=== PATIENT | female | born 1930 | race Caucasian/White ===

== ENCOUNTER → 2017-04-20 | Outpatient (CLI) | payer MEDICARE ==
--- NOTE | 2017-04-21 15:19 | KCIC ---
Examination: MRI of the right distal forearm and wrist HISTORY: History of contraction of the fourth and fifth fingers since April COMPARISON: None available TECHNIQUE: Multiplanar, multisequence MR imaging of the distal forearm and wrist were performed without contrast. FINDINGS: Examination is significantly limited due to motion artifact. There is mild focal thickened appearance of the extensor carpi ulnaris tendon at the level of the proximal carpal row with small amount of fluid within the tendon sheath at the level of the wrist and extending proximally at the level of the distal forearm. There is fluid identified in the tendon sheath of the extensor digitorum at the level of the distal forearm. There is focal thickened appearance of the medial tendons of the within the extensor digitorum with increased signal. There is some wavy appearance of the medial tendons within the extensor digitorum compartment at the level of the distal carpal row and discontinuation of the medial tendons within the extensor digitorum from the level of the distal forearm to the level of the distal carpal row. The partially visualized first, second extensor compartment tendons grossly appear unremarkable. The flexor tendons grossly appears unremarkable. There is moderate amount of fluid identified in the distal radioulnar joint with the attenuation of the triangular fibrocartilage complex. There is severe joint space loss identified in the distal radioulnar joint, radiocarpal joints. There are multiple cystic changes identified in the medial scaphoid and lateral aspect of the lunate. Moderate degenerative changes identified in the carpometacarpal joints. Small amount of fluid identified in the mid carpal joints. There is increased signal identified in the scapholunate ligament probably degeneration. There is mild volar tilting of the lunate in relation to the capitate. Mild trabecular edema identified in the lunate bone. There is complete cartilage loss identified in the wrists joint and in the radiocarpal and ulnocarpal joints. There is abutment of the ulna with the lunate with trabecular edema identified in the lunate and the distal ulna. The ulnar nerve within Guyon's canal and the median nerve within the carpal tunnel grossly appears unremarkable. IMPRESSION: 1. Tenosynovitis of the extensor digitorum tendons with wavy appearance and discontinuation of the medial tendons within the extensor digitorum from the level of the distal forearm to the level of the distal carpal row likely complete tear with retraction of the medial tendons within the extensor digitorum. The portion of the medial tendons within the extensor digitorum compartment demonstrate tendinosis at the level of the base of the metacarpals. Exam is limited due to motion artifact. The extensor digiti minimi tendon is not clearly identified. Consider MRI of the hand for better evaluation. 2. Tenosynovitis of the extensor carpi ulnaris. 3. Moderate amount of fluid identified in the distal radioulnar joint with attenuated appearance of the triangular fibrocartilage complex likely tear of the radial attachment of the triangular fibrocartilage. 4. Severe degenerative changes carpal joints and radiocarpal and ulnocarpal joints. 5. There is abutment of the ulna with the lunate with trabecular edema identified in the lunate and the distal ulna. Electronically signed by: Sudhir Ochoa MD (04/21/2017 3:16 PM) [facility]
== END | disposition home or self-care (01) ==
LOC: KCIC MRI 08:28
PROVIDERS: ATTEND Emergency Medicine
DX: R53.1 Weakness (principal); M65.9 Synovitis and tenosynovitis, unspecified
CPT/HCPCS: 73218; 73221

== ENCOUNTER 2019-01-07 11:52 | Emergency (ER) | payer MEDICARE ==
[~2019-01-07] VITALS: Ht 160 cm; Wt 56.7 kg
[~2019-01-07 11:52] MED LIST: AMLO1CAP10 PO; CEFU250T59 PO; LACT1CAP19 PO; MELO7.5T29 PO; METO50TA6 PO; MIRA50TA PO; Pantoprazole PO
[2019-01-07] MEDS ORDERED: DIPHTH,PERTUSS(ACELL),TET TOX 0.5 ML DISP.SYRIN. VAX IM ONE (12:30)
[2019-01-07] MEDS ORDERED: LIDOCAINE 1% Multi-Dose 20 ML VIAL. INJ ONE (12:30)
--- NOTE | 2019-01-07 12:34 | PHYS DOC ---
Past Medical History Past Medical History: Arthritis, GERD, High Cholesterol, Hypertension, Other Additional Past Medical Histor: urinary incontinence Past Surgical History: Hysterectomy Alcohol Use: None Drug Use: None Adult General Chief Complaint Chief Complaint: MECHANICAL FALL HPI HPI Patient is a 88 year old female who presents with left wrist and right knee pain and laceration. Walking out of a fast food restaurant when she struggled with the door and it knocked her to the ground. There was no head injury, no syncope, no loss of consciousness, no neck pain, no nausea or vomiting. No significant pain, rates it as 0-1 out of 10. Patient is able to ambulate. Patient was brought in by EMS with dressings applied. Patient is uncertain as to when her last tetanus vaccine was administered.[] Review of Systems Review of Systems Constitutional: Denies fever or chills [] Eyes: Denies change in visual acuity, redness, or eye pain [] HENT: Denies nasal congestion or sore throat [] Respiratory: Denies cough or shortness of breath [] Cardiovascular: No chest pain or palpitations[] GI: Denies abdominal pain, nausea, vomiting, bloody stools or diarrhea [] : Denies dysuria or hematuria [] Musculoskeletal: Denies back pain or joint pain, see history of present illness [] Integument: Denies rash or skin lesions [] Neurologic: Denies headache, focal weakness or sensory changes [] Endocrine: Denies polyuria or polydipsia [] All other systems were reviewed and found to be within normal limits, except as documented in this note. Current Medications Current Medications Current Medications Medications (Trade) Dose Ordered Sig/Martin Start Time Stop Time Status Last Admin Dose Admin Diphtheria/ Tetanus/Acell Pertussis (Boostrix) 0.5 ml ONCE ONCE 01/07/19 12:30 01/07/19 12:31 DC 01/07/19 12:30 0.5 ML Lidocaine HCl (Lidocaine 1% 20ml Vial) 20 ml 1X ONCE 01/07/19 12:30 01/07/19 12:31 DC 01/07/19 13:04 20 ML Allergies Allergies Allergies Coded Allergies Type Severity Reaction Last Updated Verified Yeast Allergy Intermediate 09/21/18 Yes Uncoded Allergies Type Severity Reaction Last Updated Verified UNKNOWN ARTHRITIS PILL Allergy Unknown 01/07/19 Physical Exam Physical Exam Constitutional: Well developed, well nourished, no acute distress, non-toxic appearance. [] HENT: Normocephalic, atraumatic, bilateral external ears normal, oropharynx moist, no oral exudates, nose normal. [] Eyes: PERRLA, EOMI, conjunctiva normal, no discharge. [] Neck: Normal range of motion, no tenderness, supple, no stridor. [] Cardiovascular:Heart rate regular rhythm, no murmur [] Lungs & Thorax: Bilateral breath sounds clear to auscultation [] Abdomen: Bowel sounds normal, soft, no tenderness, no masses, no pulsatile masses. [] Skin: Warm, dry, no erythema, no rash. [] Back: No tenderness, no CVA tenderness. [] Extremities: Left wrist has a laceration over the ulnar aspect. There is no foreign body. Bleeding is controlled with EMS stressing. Patient is distal neurovascularly intact. No pain with axial loading. No foreign body identified. Patient's right knee shows a laceration superior to the patella. No knee exposure. No foreign body identified. No pain with axial loading. The other extremities show no tenderness, no cyanosis, no clubbing, ROM intact, no edema. [] Neurologic: Alert and oriented X 3, normal motor function, normal sensory function, no focal deficits noted. [] Psychologic: Affect normal, judgement normal, mood normal. [] Current Patient Data Vital Signs Vital Signs Date Time Temp Pulse Resp B/P (MAP) Pulse Ox O2 Delivery O2 Flow Rate FiO2 01/07/19 12:41 80 19 95 01/07/19 11:52 98.0 165/72 (103) Room Air 98.0 EKG EKG [] Radiology/Procedures Radiology/Procedures [] Course & Med Decision Making Course & Med Decision Making Pertinent Labs and Imaging studies reviewed. (See chart for details) ED course: Patient arrived, was placed in bed, in tolerated exam well. EMS placed the c-collar and the patient. After evaluation of her head and neck with no tenderness, normal sensorium, and an otherwise normal head and neck exam, the c-collar was discontinued after patient demonstrated full active range of motion without any discomfort. Patient received tetanus vaccination. Patient had her wounds repaired without any complications. See laceration section. Patient was discharged in improved condition. Medical decision making: There does not appear to be intracranial mass or bleed. No evidence of cervical spine fracture given that there is no tenderness. No evidence of neuro or vascular compromise. No evidence of intractable bleeding. No evidence of retained foreign body. No evidence of an open fracture.[] Dragon Disclaimer Dragon Disclaimer This electronic medical record was generated, in whole or in part, using a voice recognition dictation system. Departure Departure Impression: Primary Impression: Laceration of right knee Additional Impression: Laceration of left wrist Disposition: 01 HOME, SELF-CARE Condition: IMPROVED Referrals: NO PCP (PCP) Patient Instructions: Sterile Tape Wound Closure, Sutured Wound Care Additional Instructions: Follow-up with your regular doctor in 2 days for a wound check. As the Steri- Strips start curling back trim the edges but allow them to fall off on their own. Do not remove them early. Sutures out from the left knee in 10-14 days. Return to the ER if worsening pain, purulent drainage, or any other concerns. Scripts Tramadol Hcl (TRAMADOL HCL) 50 Mg Tablet 50 MG PO Q6HRS PRN for PAIN, #20 TAB Prov: EVERETTE KEE DO 01/07/19 Laceration Repair Lac Repair Indication: Right knee laceration and left wrist laceration [] Procedure: The patient was placed in the appropriate position and anesthesia around the knee laceration was provided with 1% lidocaine, 5 mL of 1% without epinephrine. The area was then irrigated with a Betadine and saline solution.. The laceration was closed with 3, horizontal mattress sutures utilizing 3-0 nylon. The left wrist laceration was repaired utilizing Steri-Strips. After further evaluation it was found to be more of a skin tear The wound area was then dressed with [WOUND COVERING]. Total repaired wound length: 7 cm for the right knee, 3 cm for left wrist. Other Items: None The patient tolerated the procedure well. Hemostasis was achieved. Complications: None. Problem Qualifiers Primary Impression: Laceration of right knee Encounter type: initial encounter Qualified Codes: S81.011A - Laceration without foreign body, right knee, initial encounter Additional Impression: Laceration of left wrist Encounter type: initial encounter Qualified Codes: S61.512A - Laceration without foreign body of left wrist, initial encounter EVERETTE KEE DO Jan 07, 2019 12:34
[2019-01-07 12:41] VITALS: BP 143/64
[2019-01-07] MEDS ORDERED: TRAM50TA PO (13:24)
== END 2019-01-07 13:48 | disposition home or self-care (01) ==
LOC: ER 11:52
DX: S61.512A Laceration without foreign body of left wrist, initial encounter (principal); S81.011A Laceration without foreign body, right knee, initial encounter; K21.9 Gastro-esophageal reflux disease without esophagitis; E78.00 Pure hypercholesterolemia, unspecified; I10 Essential (primary) hypertension; Z88.8 Allergy status to other drugs, medicaments and biological substances; X58.XXXA Exposure to other specified factors, initial encounter; Y93.01 Activity, walking, marching and hiking; Y92.511 Restaurant or cafe as the place of occurrence of the external cause; Y99.8 Other external cause status
CPT/HCPCS: 12004; 90471; 90715; 99284-25

== ENCOUNTER 2019-01-19 13:49 | Inpatient (IN) | payer MEDICARE ==
[~2019-01-19] VITALS: Ht 160 cm; Wt 58.3 kg
[~2019-01-19 13:49] MED LIST changes: +TRAM50TA PO
--- NOTE | 2019-01-19 14:28 | PHYS DOC ---
Past Medical History Past Medical History: Arthritis, GERD, High Cholesterol, Hypertension, Other Additional Past Medical Histor: urinary incontinence Past Surgical History: Hysterectomy Additional Past Surgical Histo: L foot surgery Alcohol Use: None Drug Use: None Adult General Chief Complaint Chief Complaint: SYNCOPE HPI HPI Patient is a 88 year old female who brought in by EMS because of syncope. Patient states she had urinary frequency and dysuria and was seen at urgent care but was not able to give a urine sample and went to the pharmacy to get her routine medication added weakness syncopal episode by his standard without fall or seizure activity that last for a short time. Patient denies chest pain, focal neuro deficit, shortness of breath, nausea and vomiting, headache, weakness before or after syncopal episode. Patient states she had syncopal episodes long time ago but denies recent syncope. Patient was seen in this emergency room one week ago because of a fall and injury to left hand. Review of Systems Review of Systems Constitutional: Denies fever or chills [] Eyes: Denies change in visual acuity, redness, or eye pain [] HENT: Denies nasal congestion or sore throat [] Respiratory: Denies cough or shortness of breath [] Cardiovascular: No additional information not addressed in HPI [] GI: Denies abdominal pain, nausea, vomiting, bloody stools or diarrhea [] : Reports dysuria Musculoskeletal: Denies back pain or joint pain [] Integument: Denies rash or skin lesions [] Neurologic: Denies headache, focal weakness or sensory changes [] Endocrine: Denies polyuria or polydipsia [] All other systems were reviewed and found to be within normal limits, except as documented in this note. Current Medications Current Medications Current Medications Medications (Trade) Dose Ordered Sig/Martin Start Time Stop Time Status Last Admin Dose Admin Ceftriaxone Sodium (Rocephin) 1 gm 1X ONCE 01/19/19 16:15 01/19/19 16:16 DC 01/19/19 16:27 1 GM Sodium Chloride 1,000 ml @ 125 mls/hr Q8H 01/19/19 16:29 01/20/19 16:28 UNV Allergies Allergies Allergies Coded Allergies Type Severity Reaction Last Updated Verified Yeast Allergy Intermediate 09/21/18 Yes Uncoded Allergies Type Severity Reaction Last Updated Verified UNKNOWN ARTHRITIS PILL Allergy Unknown 01/07/19 Physical Exam Physical Exam Constitutional: Well developed, well nourished, no acute distress, non-toxic appearance. [] HENT: Normocephalic, atraumatic, oropharynx moist, no oral exudates, nose normal. [] Eyes: PERRLA, EOMI, conjunctiva normal, no discharge. [] Neck: Normal range of motion, no tenderness, supple, no stridor. [] Cardiovascular:Heart rate regular rhythm, no murmur [] Lungs & Thorax: Bilateral breath sounds clear to auscultation [] Abdomen: Bowel sounds normal, soft, no tenderness, no masses, no pulsatile masses. [] Skin: Warm, dry, no erythema, no rash. [] Back: No tenderness, no CVA tenderness. [] Extremities: No tenderness, no cyanosis, no clubbing, ROM intact, no edema. [] Neurologic: Alert and oriented X 3, normal motor function, normal sensory function, no focal deficits noted. [] Psychologic: Affect normal, judgement normal, mood normal. [] Current Patient Data Vital Signs Vital Signs Date Time Temp Pulse Resp B/P (MAP) Pulse Ox O2 Delivery O2 Flow Rate FiO2 01/19/19 15:30 76 16 138/62 (87) 96 Room Air 01/19/19 13:53 97.7 97.7 Lab Values Laboratory Tests Test 01/19/19 14:05 01/19/19 15:30 White Blood Count 6.7 x10^3/uL (4.0-11.0) Red Blood Count 3.42 x10^6/uL (3.50-5.40) L Hemoglobin 11.3 g/dL (12.0-15.5) L Hematocrit 33.9 % (36.0-47.0) L Mean Corpuscular Volume 99 fL (79-100) Mean Corpuscular Hemoglobin 33 pg (25-35) Mean Corpuscular Hemoglobin Concent 34 g/dL (31-37) Red Cell Distribution Width 11.9 % (11.5-14.5) Platelet Count 236 x10^3/uL (140-400) Neutrophils (%) (Auto) 57 % (31-73) Lymphocytes (%) (Auto) 29 % (24-48) Monocytes (%) (Auto) 11 % (0-9) H Eosinophils (%) (Auto) 2 % (0-3) Basophils (%) (Auto) 1 % (0-3) Neutrophils # (Auto) 3.8 x10^3uL (1.8-7.7) Lymphocytes # (Auto) 1.9 x10^3/uL (1.0-4.8) Monocytes # (Auto) 0.7 x10^3/uL (0.0-1.1) Eosinophils # (Auto) 0.1 x10^3/uL (0.0-0.7) Basophils # (Auto) 0.1 x10^3/uL (0.0-0.2) Sodium Level 138 mmol/L (136-145) Potassium Level 4.1 mmol/L (3.5-5.1) Chloride Level 102 mmol/L (98-107) Carbon Dioxide Level 24 mmol/L (21-32) Anion Gap 12 (6-14) Blood Urea Nitrogen 26 mg/dL (7-20) H Creatinine 1.1 mg/dL (0.6-1.0) H Estimated GFR (Cockcroft-Gault) 46.8 BUN/Creatinine Ratio 24 (6-20) H Glucose Level 112 mg/dL (70-99) H Calcium Level 8.9 mg/dL (8.5-10.1) Magnesium Level 2.1 mg/dL (1.8-2.4) Total Bilirubin 0.6 mg/dL (0.2-1.0) Aspartate Amino Transferase (AST) 19 U/L (15-37) Alanine Aminotransferase (ALT) 18 U/L (14-59) Alkaline Phosphatase 136 U/L (46-116) H Troponin I Quantitative < 0.017 ng/mL (0.000-0.055) LN-Bbi-X-Type Natriuretic Peptide 795 pg/mL (0-449) H Total Protein 7.4 g/dL (6.4-8.2) Albumin 3.7 g/dL (3.4-5.0) Albumin/Globulin Ratio 1.0 (1.0-1.7) Urine Collection Type Unknown Urine Color Yellow Urine Clarity Turbid Urine pH 6.0 Urine Specific Monitor 1.015 Urine Protein 100 mg/dL (NEG-TRACE) Urine Glucose (UA) Negative mg/dL (NEG) Urine Ketones (Stick) Trace mg/dL (NEG) Urine Blood Large (NEG) Urine Nitrite Positive (NEG) Urine Bilirubin Negative (NEG) Urine Urobilinogen Dipstick 0.2 mg/dL (0.2 mg/dL) Urine Leukocyte Esterase Large (NEG) Urine RBC /HPF (0-2) Urine WBC Tntc /HPF (0-4) Urine Bacteria Many /HPF (0-FEW) Laboratory Tests 01/19/19 14:05 Laboratory Tests 01/19/19 14:05 EKG EKG EKG interpreted by me. EKG at 1352 showed normal sinus rhythm at rate of 78, normal GA and QT intervals, low voltage QRS, no acute ST and T-wave abnormalities. Radiology/Procedures Radiology/Procedures [facility] [address] [place], [place] [id number] IMAGING REPORT Signed PATIENT: GILSON CUEVA V ACCOUNT: [id number] : 1930 LOCATION: ER AGE: 88 SEX: F EXAM STATUS: REG ER ORD. PHYSICIAN: FAHAD CEBALLOS MD REASON: syncope PROCEDURE: CT HEAD WO CONTRAST PQRS Compliance Statement: One or more of the following individualized dose reduction techniques were utilized for this examination: 1. Automated exposure control 2. Adjustment of the mA and/or kV according to patient size 3. Use of iterative reconstruction technique CT head without contrast 01/19/2019 2:29 PM INDICATION: Syncope COMPARISON: None available TECHNIQUE: Multiple axial CT images of the head were obtained from skull base through the vertex without intravenous contrast. FINDINGS: Head: Ventricles, sulci and basal cisterns are prominent compatible with mild generalized cerebral and cerebellar volume loss. . Low-attenuation in the periventricular white matter is suggestive of chronic small vessel ischemic changes. There is no hydrocephalus. Correa-white matter differentiation is normal. There is no acute intracranial hemorrhage. There is no mass, mass effect or midline shift. Visualized portions of the orbits are normal the exception of bilateral lens replacement. Moderate opacification of left maxillary sinus with high attenuation material suggestive of inspissated mucus or fungal colonization. Mild mucosal thickening in the right maxillary sinus. Mastoid air cells are well aerated. Scalp and calvaria are normal. IMPRESSION: No acute intracranial hemorrhage. Mild generalized cerebral and cerebellar volume loss. Low-attenuation in the periventricular white matter is suggestive of chronic small vessel ischemic changes. There is moderate opacification left maxillary sinus containing high attenuation material which may be seen with fungal colonization or inspissated mucus. Electronically signed by: Emily Hernandez MD (01/19/2019 3:41 PM) [id number] DICTATED and SIGNED BY: EMILY HERNANDEZ MD DATE: 01/19/19 1541 Course & Med Decision Making Course & Med Decision Making Pertinent Labs and Imaging studies reviewed. (See chart for details) Evaluation of patient in ER showed 88-year-old female patient brought in by EMS because of syncopal episode. Patient had unremarkable physical exam. Labs showed chronic renal insufficiency and anemia with severe UTI without leukocytosis, hypertension, fever or tachycardia. Patient requiring admission for further evaluation and treatment. Discussed with Dr. Lieberman who is in agreement with admission. Discussed findings and plan with patient and family, who acknowledge understanding and agreement. Dragon Disclaimer Dragon Disclaimer This electronic medical record was generated, in whole or in part, using a voice recognition dictation system. Departure Departure Impression: Primary Impression: Syncope Additional Impressions: UTI (urinary tract infection) Chronic renal insufficiency Anemia Disposition: 09 ADMITTED INPATIENT (at 1628) Admitting Physician: Other (Dr Lieberman accepted the admission at 1627) Condition: IMPROVED Referrals: UNKNOWN PCP NAME (PCP) Problem Qualifiers FAHAD CEBALLOS MD Jan 19, 2019 14:28
[2019-01-19 14:33] LABS: BASO # 0.1 x10^3/uL (0.0-0.2); BASO % 1 % (0-3); EOS # 0.1 x10^3/uL (0.0-0.7); EOS % 2 % (0-3); HEMATOCRIT 33.9 % (36.0-47.0); HEMOGLOBIN 11.3 g/dL (12.0-15.5); LYMPH # 1.9 x10^3/uL (1.0-4.8); LYMPH % 29 % (24-48); MEAN CORPUSCULAR HEMOGLOBIN 33 pg (25-35); MEAN CORPUSCULAR HGB CONC 34 g/dL (31-37); MEAN CORPUSCULAR VOLUME 99 fL (79-100); MONO # 0.7 x10^3/uL (0.0-1.1); MONO % 11 % (0-9); NEUT # 3.8 x10^3uL (1.8-7.7); NEUT % 57 % (31-73); PLATELET COUNT 236 x10^3/uL (140-400); RED BLOOD COUNT 3.42 x10^6/uL (3.50-5.40); RED CELL DISTRIBUTION WIDTH 11.9 % (11.5-14.5); WHITE BLOOD COUNT 6.7 x10^3/uL (4.0-11.0)
[2019-01-19 14:42] LABS: CALCIUM 8.9 mg/dL (8.5-10.1); CREATININE 1.1 mg/dL (0.6-1.0); GFR 46.8; POTASSIUM 4.1 mmol/L (3.5-5.1)
[2019-01-19 14:48] LABS: ALBUMIN 3.7 g/dL (3.4-5.0); MAGNESIUM 2.1 mg/dL (1.8-2.4); TOTAL BILIRUBIN 0.6 mg/dL (0.2-1.0); TOTAL PROTEIN 7.4 g/dL (6.4-8.2)
--- NOTE | 2019-01-19 15:26 | EKG ---
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
--- NOTE | 2019-01-19 15:44 | RAD ---
PQRS Compliance Statement: One or more of the following individualized dose reduction techniques were utilized for this examination: 1. Automated exposure control 2. Adjustment of the mA and/or kV according to patient size 3. Use of iterative reconstruction technique CT head without contrast 01/19/2019 2:29 PM INDICATION: Syncope COMPARISON: None available TECHNIQUE: Multiple axial CT images of the head were obtained from skull base through the vertex without intravenous contrast. FINDINGS: Head: Ventricles, sulci and basal cisterns are prominent compatible with mild generalized cerebral and cerebellar volume loss. . Low-attenuation in the periventricular white matter is suggestive of chronic small vessel ischemic changes. There is no hydrocephalus. Correa-white matter differentiation is normal. There is no acute intracranial hemorrhage. There is no mass, mass effect or midline shift. Visualized portions of the orbits are normal the exception of bilateral lens replacement. Moderate opacification of left maxillary sinus with high attenuation material suggestive of inspissated mucus or fungal colonization. Mild mucosal thickening in the right maxillary sinus. Mastoid air cells are well aerated. Scalp and calvaria are normal. IMPRESSION: No acute intracranial hemorrhage. Mild generalized cerebral and cerebellar volume loss. Low-attenuation in the periventricular white matter is suggestive of chronic small vessel ischemic changes. There is moderate opacification left maxillary sinus containing high attenuation material which may be seen with fungal colonization or inspissated mucus. Electronically signed by: Pennie Evans MD (01/19/2019 3:41 PM) [id number]
[2019-01-19 15:47] LABS: BILIRUBIN,URINE NEGATIVE (NEG); CLARITY,URINE TURBID; COLOR,URINE YELLOW; NITRITE,URINE POSITIVE (NEG); PROTEIN,URINE 100 mg/dL (NEG-TRACE); UROBILINOGEN,URINE 0.2 mg/dL (0.2 mg/dL)
[2019-01-19 15:53] LABS: BACTERIA,URINE MANY /HPF (0-FEW); WBC,URINE TNTC /HPF (0-4)
[2019-01-19] MEDS ORDERED: cefTRIAXone IV Push 1 GM VIAL. IVP ONE (16:15)
[2019-01-19] MEDS ORDERED: guaiFENesin ORAL 200 MG/10 ML LIQUID. PO PRN (17:00)
[2019-01-19] MEDS ORDERED: ZOLPIDEM 5 MG TABLET. PO PRN (17:00)
[2019-01-19] MEDS ORDERED: ONDANSETRON PF 4 MG/2 ML VIAL. IV PRN (17:00)
[2019-01-19] MEDS ORDERED: ACETAMINOPHEN 325 MG TABLET. PO PRN (17:00)
[2019-01-19] MEDS ORDERED: ALBUTEROL SULFATE 2.5 MG/3 ML NEBU. NEB PRN (17:00)
[2019-01-19] MEDS ORDERED: DOCUSATE SODIUM 100 MG CAPSULE. PO PRN (17:00)
[2019-01-19] MEDS ORDERED: diphenhydrAMINE 50 MG/ML VIAL IVP PRN (17:00)
--- NOTE | 2019-01-19 17:47 | PDOC1 ---
History and Physical Date of Admission Date of Admission 01/19/2019 Identification/Chief Complaint Chief Complaint I fell at [facility] Source Source: Chart review, Patient History of Present Illness History of Present Illness Patient is an 88-year-old female with past medical history of hypertension who was at [facility] picking up prescriptions for somebody else when she gets "tired of standing". She does not remember falling to the ground and she apparently had a syncopal episode she woke up quite quickly there was no seizure-like activity reported. The patient denies having had urinary or bowel incontinence she did not injure her tone either. Patient refers that it's a first time episode. She was seen by her primary care physician approximately one week ago. She did not have changes to her medications. She denies recent infections no cold-like symptoms no headaches no blurred vision no dysphagia no slurred speech no chest pain palpitations no shortness of breath no paroxysmal nocturnal dyspnea no abdominal pain no nausea vomiting or diarrhea. The patient refers having good appetite and has stayed well hydrated Workup is benign in the emergency department we have been asked to admit for the syncopal episode and because she was found to have a urinary tract infection which is asymptomatic. The patient denies dysuria she denies costovertebral angle tenderness and there is no evidence of toxicity on her clinical examination. Patient is hoping to be discharged home soon. She is very independent of the activities of daily living and she still drives at 88 years old. Past Medical History Cardiovascular: HTN Pulmonary: No pertinent hx Past Surgical History Past Surgical History: No pertinent history Family History Family History: No Significant Social History ALCOHOL: none Drugs: None Current Problem List Problem List Problems Medical Problems: (1) Anemia Status: Acute (2) Chronic renal insufficiency Status: Acute (3) Syncope Status: Acute Current Medications Current Medications Current Medications Medications (Trade) Dose Ordered Sig/Martin Start Time Stop Time Status Last Admin Dose Admin Acetaminophen (Tylenol) 650 mg PRN Q4HRS PRN 01/19/19 17:00 Albuterol Sulfate (Ventolin Neb Soln) 2.5 mg PRN Q4HRS PRN 01/19/19 17:00 Albuterol/ Ipratropium (Duoneb) 3 ml Q4HRS 01/19/19 20:00 Ceftriaxone Sodium (Rocephin) 1 gm 1X ONCE 01/19/19 16:15 01/19/19 16:16 DC 01/19/19 16:27 1 GM Diphenhydramine HCl (Benadryl) 25 mg PRN Q4HRS PRN 01/19/19 17:00 Docusate Sodium (Colace) 100 mg PRN BID PRN 01/19/19 17:00 Guaifenesin (Robitussin) 200 mg PRN Q4HRS PRN 01/19/19 17:00 Lactobacillus Rhamnosus (Culturelle) 1 cap BID 01/19/19 21:00 Lorazepam (Ativan) 2 mg PRN Q4HRS PRN 01/19/19 17:00 Metoprolol Tartrate (Lopressor) 50 mg DAILY08 01/20/19 08:00 UNV Non-Formulary Medication (Amlodipine Besylate/ Benazepril (Amlodipine-Benazepril 5-20 Mg)) 1 cap DAILY 01/20/19 09:00 UNV Non-Formulary Medication (Mirabegron (Myrbetriq)) 50 mg DAILY08 01/20/19 08:00 UNV Non-Formulary Medication ([Pantoprazole] ) 40 mg DAILYAC 01/20/19 07:30 UNV Ondansetron HCl (Zofran) 4 mg PRN Q4HRS PRN 01/19/19 17:00 Sodium Chloride 1,000 ml @ 125 mls/hr Q8H 01/19/19 16:29 01/20/19 16:28 Tramadol HCl (Ultram) 50 mg PRN Q6HRS PRN 01/19/19 17:00 Zolpidem Tartrate (Ambien) 5 mg PRN QHS PRN 01/19/19 17:00 Allergies Allergies Allergies Coded Allergies Type Severity Reaction Last Updated Verified Yeast Allergy Intermediate 09/21/18 Yes Uncoded Allergies Type Severity Reaction Last Updated Verified UNKNOWN ARTHRITIS PILL Allergy Unknown 01/07/19 ROS Review of System CONSTITUTIONAL: No fever or chills EYES: No recent changes SKIN: No rash or itching CARDIOVASCULAR: No chest pain, syncope, palpitations, or edema RESPIRATORY: No SOB or cough GASTROINTESTINAL: No nausea, vomiting or abdominal pain NEUROLOGICAL: No headaches or weakness ENDOCRINE: No cold or heat intolerance GENITOURINARY: No urgency or frequency of urination MUSCULOSKELETAL: No back pain or joint pain LYMPHATICS: No enlarged lymph nodes PSYCHIATRIC: No anxiety or depression Physical Exam Physical Exam Gen.: Elderly thin looking in no apparent distress Head: Normal shape atraumatic Eyes: Pupils equal reactive to light and accommodation, normal conjunctivae and lids Ears: Normal shape Nose: Normal shape no trauma Mouth: No exudates of the back of throat no thrush no lesions Neck: Supple no JVD no carotid bruit or lymphadenopathy no thyromegaly Chest: Lungs clear to auscultation with good inspiratory effort no crackles rales or rhonchi Cardiovascular: S1-S2 regular rhythm no murmurs gallops or rubs Abdomen: Bowel sounds present soft nontender no hepatosplenomegaly appreciated sign Extremities: No clubbing no cyanosis no edema peripheral pulses palpated bilaterally Neurological: Alert awake oriented in person time place and situation, cranial nerves II through XII intact, no motor or sensory deficits appreciated Psych: Appropriate mood, cooperative Vitals Vitals Vital Signs Date Time Temp Pulse Resp B/P (MAP) Pulse Ox O2 Delivery O2 Flow Rate FiO2 01/19/19 16:30 88 17 155/69 (97) 97 Room Air 01/19/19 13:53 97.7 97.7 Labs Labs Laboratory Tests Test 01/19/19 14:05 01/19/19 15:30 White Blood Count 6.7 x10^3/uL (4.0-11.0) Red Blood Count 3.42 x10^6/uL (3.50-5.40) Hemoglobin 11.3 g/dL (12.0-15.5) Hematocrit 33.9 % (36.0-47.0) Mean Corpuscular Volume 99 fL (79-100) Mean Corpuscular Hemoglobin 33 pg (25-35) Mean Corpuscular Hemoglobin Concent 34 g/dL (31-37) Red Cell Distribution Width 11.9 % (11.5-14.5) Platelet Count 236 x10^3/uL (140-400) Neutrophils (%) (Auto) 57 % (31-73) Lymphocytes (%) (Auto) 29 % (24-48) Monocytes (%) (Auto) 11 % (0-9) Eosinophils (%) (Auto) 2 % (0-3) Basophils (%) (Auto) 1 % (0-3) Neutrophils # (Auto) 3.8 x10^3uL (1.8-7.7) Lymphocytes # (Auto) 1.9 x10^3/uL (1.0-4.8) Monocytes # (Auto) 0.7 x10^3/uL (0.0-1.1) Eosinophils # (Auto) 0.1 x10^3/uL (0.0-0.7) Basophils # (Auto) 0.1 x10^3/uL (0.0-0.2) Sodium Level 138 mmol/L (136-145) Potassium Level 4.1 mmol/L (3.5-5.1) Chloride Level 102 mmol/L (98-107) Carbon Dioxide Level 24 mmol/L (21-32) Anion Gap 12 (6-14) Blood Urea Nitrogen 26 mg/dL (7-20) Creatinine 1.1 mg/dL (0.6-1.0) Estimated GFR (Cockcroft-Gault) 46.8 BUN/Creatinine Ratio 24 (6-20) Glucose Level 112 mg/dL (70-99) Lactic Acid Level 1.7 mmol/L (0.4-2.0) Calcium Level 8.9 mg/dL (8.5-10.1) Magnesium Level 2.1 mg/dL (1.8-2.4) Total Bilirubin 0.6 mg/dL (0.2-1.0) Aspartate Amino Transf (AST/SGOT) 19 U/L (15-37) Alanine Aminotransferase (ALT/SGPT) 18 U/L (14-59) Alkaline Phosphatase 136 U/L (46-116) Troponin I Quantitative < 0.017 ng/mL (0.000-0.055) OH-Xgf-A-Type Natriuretic Peptide 795 pg/mL (0-449) Total Protein 7.4 g/dL (6.4-8.2) Albumin 3.7 g/dL (3.4-5.0) Albumin/Globulin Ratio 1.0 (1.0-1.7) Urine Collection Type Unknown Urine Color Yellow Urine Clarity Turbid Urine pH 6.0 Urine Specific [place] 1.015 Urine Protein 100 mg/dL (NEG-TRACE) Urine Glucose (UA) Negative mg/dL (NEG) Urine Ketones (Stick) Trace mg/dL (NEG) Urine Blood Large (NEG) Urine Nitrite Positive (NEG) Urine Bilirubin Negative (NEG) Urine Urobilinogen Dipstick 0.2 mg/dL (0.2 mg/dL) Urine Leukocyte Esterase Large (NEG) Urine RBC /HPF (0-2) Urine WBC Tntc /HPF (0-4) Urine Bacteria Many /HPF (0-FEW) Laboratory Tests Test 01/19/19 14:05 01/19/19 15:30 White Blood Count 6.7 x10^3/uL (4.0-11.0) Red Blood Count 3.42 x10^6/uL (3.50-5.40) Hemoglobin 11.3 g/dL (12.0-15.5) Hematocrit 33.9 % (36.0-47.0) Mean Corpuscular Volume 99 fL (79-100) Mean Corpuscular Hemoglobin 33 pg (25-35) Mean Corpuscular Hemoglobin Concent 34 g/dL (31-37) Red Cell Distribution Width 11.9 % (11.5-14.5) Platelet Count 236 x10^3/uL (140-400) Neutrophils (%) (Auto) 57 % (31-73) Lymphocytes (%) (Auto) 29 % (24-48) Monocytes (%) (Auto) 11 % (0-9) Eosinophils (%) (Auto) 2 % (0-3) Basophils (%) (Auto) 1 % (0-3) Neutrophils # (Auto) 3.8 x10^3uL (1.8-7.7) Lymphocytes # (Auto) 1.9 x10^3/uL (1.0-4.8) Monocytes # (Auto) 0.7 x10^3/uL (0.0-1.1) Eosinophils # (Auto) 0.1 x10^3/uL (0.0-0.7) Basophils # (Auto) 0.1 x10^3/uL (0.0-0.2) Sodium Level 138 mmol/L (136-145) Potassium Level 4.1 mmol/L (3.5-5.1) Chloride Level 102 mmol/L (98-107) Carbon Dioxide Level 24 mmol/L (21-32) Anion Gap 12 (6-14) Blood Urea Nitrogen 26 mg/dL (7-20) Creatinine 1.1 mg/dL (0.6-1.0) Estimated GFR (Cockcroft-Gault) 46.8 BUN/Creatinine Ratio 24 (6-20) Glucose Level 112 mg/dL (70-99) Lactic Acid Level 1.7 mmol/L (0.4-2.0) Calcium Level 8.9 mg/dL (8.5-10.1) Magnesium Level 2.1 mg/dL (1.8-2.4) Total Bilirubin 0.6 mg/dL (0.2-1.0) Aspartate Amino Transf (AST/SGOT) 19 U/L (15-37) Alanine Aminotransferase (ALT/SGPT) 18 U/L (14-59) Alkaline Phosphatase 136 U/L (46-116) Troponin I Quantitative < 0.017 ng/mL (0.000-0.055) XQ-Ypf-F-Type Natriuretic Peptide 795 pg/mL (0-449) Total Protein 7.4 g/dL (6.4-8.2) Albumin 3.7 g/dL (3.4-5.0) Albumin/Globulin Ratio 1.0 (1.0-1.7) Urine Collection Type Unknown Urine Color Yellow Urine Clarity Turbid Urine pH 6.0 Urine Specific [place] 1.015 Urine Protein 100 mg/dL (NEG-TRACE) Urine Glucose (UA) Negative mg/dL (NEG) Urine Ketones (Stick) Trace mg/dL (NEG) Urine Blood Large (NEG) Urine Nitrite Positive (NEG) Urine Bilirubin Negative (NEG) Urine Urobilinogen Dipstick 0.2 mg/dL (0.2 mg/dL) Urine Leukocyte Esterase Large (NEG) Urine RBC /HPF (0-2) Urine WBC Tntc /HPF (0-4) Urine Bacteria Many /HPF (0-FEW) VTE Prophylaxis Ordered VTE Prophylaxis Devices: No VTE Pharmacological Prophylaxi: Yes Assessment/Plan Assessment/Plan Syncopal episode History of hypertension CKD stage 3a Asymptomatic bacteriuria Plan: rocvephin administered in the ED will follow culture resume home meds check orthostatics dvt prophylaxis: heparin will reassess in the am Pt eval further recommendations based on clinical course. KEL GRIER MD Jan 19, 2019 17:47
[2019-01-19] MEDS ORDERED: IPRATRPIUM/ALBUTEROL 0.5/2.5MG 3 ML NEBU. ONE (18:19)
[2019-01-19] MEDS: IPRATRPIUM/ALBUTEROL 0.5/2.5MG 3 ML NEBU. NEB SCH ×2 (18:22→23:32)
[2019-01-19 19:30] VITALS: BP 127/65
--- NOTE | 2019-01-19 20:00 | NUR ---
The patient, GILOSN CUEVA V, 88 y/o, F admitted by KEL GRIER MD, was given written information regarding hospital policies, unit procedures and contact persons. Valuables were checked and left with daughter. patient is resting in bed with call light within reach..
[2019-01-19 20:09] VITALS: BP 127/65
[2019-01-19] MEDS: IV NORMAL SALINE 1000ML BAG 1,000 ML IV SCH (20:33)
[2019-01-19] MEDS: LACTOBACILLUS RHAMNOSUS GG 1 CAPSULE. PO SCH (20:34)
[2019-01-19 23:16] VITALS: BP 126/54
[2019-01-20] VITALS (7 sets, daily range): BP systolic 119–139; BP diastolic 41–71
[2019-01-20] MEDS: IPRATRPIUM/ALBUTEROL 0.5/2.5MG 3 ML NEBU. NEB SCH ×3 (03:37→12:00)
[2019-01-20] MEDS: IV NORMAL SALINE 1000ML BAG 1,000 ML IV SCH ×2 (04:37→16:35)
[2019-01-20] MEDS: NON FORMULARY ITEM (Mirabegron (Myrbetriq) 50 MG) PO SCH (08:00)
[2019-01-20] MEDS: amLODIPine BESYLATE 5 MG TABLET PO SCH (09:23)
[2019-01-20] MEDS: PANTOPRAZOLE 40 MG TABLET.DR. PO SCH (09:23)
[2019-01-20] MEDS: LACTOBACILLUS RHAMNOSUS GG 1 CAPSULE. PO SCH ×2 (09:23→21:19)
[2019-01-20] MEDS: LISINOPRIL 20 MG TABLET PO SCH (09:24)
[2019-01-20] MEDS: METOPROLOL SUCC 24HR ER 50 MG TAB.ER.24H. PO SCH (09:24)
--- NOTE | 2019-01-20 10:40 | PDOC ---
PROGRESS NOTES Chief Complaint Chief Complaint as at [facility] picking up prescriptions for somebody else when she gets "tired of standing". She does not remember falling to the ground and she apparently had a syncopal episode she woke up quite quickly there was no seizure-like activity reported. The patient denies having had urinary or bowel incontinence History of Present Illness History of Present Illness VTE Prophylaxis Ordered VTE Prophylaxis Devices: No VTE Pharmacological Prophylaxi: Yes Assessment/Plan Syncopal episode, cardiac etiology, vs neurological event History of hypertension CKD stage 3a Asymptomatic bacteriuria UTI HYPOXIA POA, WITH SLEEP GERD Plan: CXR rocvephin IV Q 24 HRS continue will follow culture resume home meds check orthostatics dvt prophylaxis: heparin Pt eval further recommendations based on clinical course. NEUROLOGY CONSULT TELE NEUROCHECKS Q 4 HRS DOPPLER CAROTIDS ECHO 46 min pt exam, chart review, > 50% of time spent with exam, chart review, pt care coordination Vitals Vitals Vital Signs Date Time Temp Pulse Resp B/P (MAP) Pulse Ox O2 Delivery O2 Flow Rate FiO2 01/20/19 09:24 97 124/64 01/20/19 07:00 98.0 18 94 Room Air 98.0 Physical Exam Physical Exam Head: Normal shape atraumatic Eyes: Pupils equal reactive to light and accommodation, normal conjunctivae and lids Ears: Normal shape Nose: Normal shape no trauma Mouth: No exudates of the back of throat no thrush no lesions Neck: Supple no JVD no carotid bruit or lymphadenopathy no thyromegaly Chest: Lungs clear to auscultation with good inspiratory effort no crackles rales or rhonchi Cardiovascular: S1-S2 regular rhythm no murmurs gallops or rubs Abdomen: Bowel sounds present soft nontender no hepatosplenomegaly appreciated sign Extremities: No clubbing no cyanosis no edema peripheral pulses palpated bilaterally Neurological: Alert awake oriented in person time place and situation, cranial nerves II through XII intact, General: Alert, Oriented X3, Cooperative Heart: Regular rate Lungs: Clear Abdomen: Normal bowel sounds, Soft, No tenderness Extremities: No cyanosis Skin: No breakdown Labs LABS CT head without contrast 01/19/2019 2:29 PM INDICATION: Syncope COMPARISON: None available TECHNIQUE: Multiple axial CT images of the head were obtained from skull base through the vertex without intravenous contrast. FINDINGS: Head: Ventricles, sulci and basal cisterns are prominent compatible with mild generalized cerebral and cerebellar volume loss. . Low-attenuation in the periventricular white matter is suggestive of chronic small vessel ischemic changes. There is no hydrocephalus. Correa-white matter differentiation is normal. There is no acute intracranial hemorrhage. There is no mass, mass effect or midline shift. Visualized portions of the orbits are normal the exception of bilateral lens replacement. Moderate opacification of left maxillary sinus with high attenuation material suggestive of inspissated mucus or fungal colonization. Mild mucosal thickening in the right maxillary sinus. Mastoid air cells are well aerated. Scalp and calvaria are normal. IMPRESSION: No acute intracranial hemorrhage. Mild generalized cerebral and cerebellar volume loss. Low-attenuation in the periventricular white matter is suggestive of chronic small vessel ischemic changes. There is moderate opacification left maxillary sinus containing high attenuation material which may be seen with fungal colonization or inspissated mucus. Electronically signed by: Emily Evans MD (01/19/2019 3:41 PM) [id number] DICTATED and SIGNED BY: EMILY EVANS MD DATE: 01/19/19 1541 Laboratory Tests Test 01/19/19 14:05 01/19/19 15:30 White Blood Count 6.7 x10^3/uL (4.0-11.0) Red Blood Count 3.42 x10^6/uL (3.50-5.40) Hemoglobin 11.3 g/dL (12.0-15.5) Hematocrit 33.9 % (36.0-47.0) Mean Corpuscular Volume 99 fL (79-100) Mean Corpuscular Hemoglobin 33 pg (25-35) Mean Corpuscular Hemoglobin Concent 34 g/dL (31-37) Red Cell Distribution Width 11.9 % (11.5-14.5) Platelet Count 236 x10^3/uL (140-400) Neutrophils (%) (Auto) 57 % (31-73) Lymphocytes (%) (Auto) 29 % (24-48) Monocytes (%) (Auto) 11 % (0-9) Eosinophils (%) (Auto) 2 % (0-3) Basophils (%) (Auto) 1 % (0-3) Neutrophils # (Auto) 3.8 x10^3uL (1.8-7.7) Lymphocytes # (Auto) 1.9 x10^3/uL (1.0-4.8) Monocytes # (Auto) 0.7 x10^3/uL (0.0-1.1) Eosinophils # (Auto) 0.1 x10^3/uL (0.0-0.7) Basophils # (Auto) 0.1 x10^3/uL (0.0-0.2) Sodium Level 138 mmol/L (136-145) Potassium Level 4.1 mmol/L (3.5-5.1) Chloride Level 102 mmol/L (98-107) Carbon Dioxide Level 24 mmol/L (21-32) Anion Gap 12 (6-14) Blood Urea Nitrogen 26 mg/dL (7-20) Creatinine 1.1 mg/dL (0.6-1.0) Estimated GFR (Cockcroft-Gault) 46.8 BUN/Creatinine Ratio 24 (6-20) Glucose Level 112 mg/dL (70-99) Lactic Acid Level 1.7 mmol/L (0.4-2.0) Calcium Level 8.9 mg/dL (8.5-10.1) Magnesium Level 2.1 mg/dL (1.8-2.4) Total Bilirubin 0.6 mg/dL (0.2-1.0) Aspartate Amino Transf (AST/SGOT) 19 U/L (15-37) Alanine Aminotransferase (ALT/SGPT) 18 U/L (14-59) Alkaline Phosphatase 136 U/L (46-116) Troponin I Quantitative < 0.017 ng/mL (0.000-0.055) MO-Mkt-K-Type Natriuretic Peptide 795 pg/mL (0-449) Total Protein 7.4 g/dL (6.4-8.2) Albumin 3.7 g/dL (3.4-5.0) Albumin/Globulin Ratio 1.0 (1.0-1.7) Urine Collection Type Unknown Urine Color Yellow Urine Clarity Turbid Urine pH 6.0 Urine Specific [place] 1.015 Urine Protein 100 mg/dL (NEG-TRACE) Urine Glucose (UA) Negative mg/dL (NEG) Urine Ketones (Stick) Trace mg/dL (NEG) Urine Blood Large (NEG) Urine Nitrite Positive (NEG) Urine Bilirubin Negative (NEG) Urine Urobilinogen Dipstick 0.2 mg/dL (0.2 mg/dL) Urine Leukocyte Esterase Large (NEG) Urine RBC /HPF (0-2) Urine WBC Tntc /HPF (0-4) Urine Bacteria Many /HPF (0-FEW) Assessment and Plan Assessmemt and Plan Problems Medical Problems: (1) Anemia Status: Acute (2) Chronic renal insufficiency Status: Acute (3) Syncope Status: Acute Comment Review of Relevant I have reviewed the following items baudilio (where applicable) has been applied. Labs Laboratory Tests Test 01/19/19 14:05 01/19/19 15:30 White Blood Count 6.7 x10^3/uL (4.0-11.0) Red Blood Count 3.42 x10^6/uL (3.50-5.40) Hemoglobin 11.3 g/dL (12.0-15.5) Hematocrit 33.9 % (36.0-47.0) Mean Corpuscular Volume 99 fL (79-100) Mean Corpuscular Hemoglobin 33 pg (25-35) Mean Corpuscular Hemoglobin Concent 34 g/dL (31-37) Red Cell Distribution Width 11.9 % (11.5-14.5) Platelet Count 236 x10^3/uL (140-400) Neutrophils (%) (Auto) 57 % (31-73) Lymphocytes (%) (Auto) 29 % (24-48) Monocytes (%) (Auto) 11 % (0-9) Eosinophils (%) (Auto) 2 % (0-3) Basophils (%) (Auto) 1 % (0-3) Neutrophils # (Auto) 3.8 x10^3uL (1.8-7.7) Lymphocytes # (Auto) 1.9 x10^3/uL (1.0-4.8) Monocytes # (Auto) 0.7 x10^3/uL (0.0-1.1) Eosinophils # (Auto) 0.1 x10^3/uL (0.0-0.7) Basophils # (Auto) 0.1 x10^3/uL (0.0-0.2) Sodium Level 138 mmol/L (136-145) Potassium Level 4.1 mmol/L (3.5-5.1) Chloride Level 102 mmol/L (98-107) Carbon Dioxide Level 24 mmol/L (21-32) Anion Gap 12 (6-14) Blood Urea Nitrogen 26 mg/dL (7-20) Creatinine 1.1 mg/dL (0.6-1.0) Estimated GFR (Cockcroft-Gault) 46.8 BUN/Creatinine Ratio 24 (6-20) Glucose Level 112 mg/dL (70-99) Lactic Acid Level 1.7 mmol/L (0.4-2.0) Calcium Level 8.9 mg/dL (8.5-10.1) Magnesium Level 2.1 mg/dL (1.8-2.4) Total Bilirubin 0.6 mg/dL (0.2-1.0) Aspartate Amino Transf (AST/SGOT) 19 U/L (15-37) Alanine Aminotransferase (ALT/SGPT) 18 U/L (14-59) Alkaline Phosphatase 136 U/L (46-116) Troponin I Quantitative < 0.017 ng/mL (0.000-0.055) QS-Pfm-T-Type Natriuretic Peptide 795 pg/mL (0-449) Total Protein 7.4 g/dL (6.4-8.2) Albumin 3.7 g/dL (3.4-5.0) Albumin/Globulin Ratio 1.0 (1.0-1.7) Urine Collection Type Unknown Urine Color Yellow Urine Clarity Turbid Urine pH 6.0 Urine Specific [place] 1.015 Urine Protein 100 mg/dL (NEG-TRACE) Urine Glucose (UA) Negative mg/dL (NEG) Urine Ketones (Stick) Trace mg/dL (NEG) Urine Blood Large (NEG) Urine Nitrite Positive (NEG) Urine Bilirubin Negative (NEG) Urine Urobilinogen Dipstick 0.2 mg/dL (0.2 mg/dL) Urine Leukocyte Esterase Large (NEG) Urine RBC /HPF (0-2) Urine WBC Tntc /HPF (0-4) Urine Bacteria Many /HPF (0-FEW) Laboratory Tests Test 01/19/19 14:05 01/19/19 15:30 White Blood Count 6.7 x10^3/uL (4.0-11.0) Red Blood Count 3.42 x10^6/uL (3.50-5.40) Hemoglobin 11.3 g/dL (12.0-15.5) Hematocrit 33.9 % (36.0-47.0) Mean Corpuscular Volume 99 fL (79-100) Mean Corpuscular Hemoglobin 33 pg (25-35) Mean Corpuscular Hemoglobin Concent 34 g/dL (31-37) Red Cell Distribution Width 11.9 % (11.5-14.5) Platelet Count 236 x10^3/uL (140-400) Neutrophils (%) (Auto) 57 % (31-73) Lymphocytes (%) (Auto) 29 % (24-48) Monocytes (%) (Auto) 11 % (0-9) Eosinophils (%) (Auto) 2 % (0-3) Basophils (%) (Auto) 1 % (0-3) Neutrophils # (Auto) 3.8 x10^3uL (1.8-7.7) Lymphocytes # (Auto) 1.9 x10^3/uL (1.0-4.8) Monocytes # (Auto) 0.7 x10^3/uL (0.0-1.1) Eosinophils # (Auto) 0.1 x10^3/uL (0.0-0.7) Basophils # (Auto) 0.1 x10^3/uL (0.0-0.2) Sodium Level 138 mmol/L (136-145) Potassium Level 4.1 mmol/L (3.5-5.1) Chloride Level 102 mmol/L (98-107) Carbon Dioxide Level 24 mmol/L (21-32) Anion Gap 12 (6-14) Blood Urea Nitrogen 26 mg/dL (7-20) Creatinine 1.1 mg/dL (0.6-1.0) Estimated GFR (Cockcroft-Gault) 46.8 BUN/Creatinine Ratio 24 (6-20) Glucose Level 112 mg/dL (70-99) Lactic Acid Level 1.7 mmol/L (0.4-2.0) Calcium Level 8.9 mg/dL (8.5-10.1) Magnesium Level 2.1 mg/dL (1.8-2.4) Total Bilirubin 0.6 mg/dL (0.2-1.0) Aspartate Amino Transf (AST/SGOT) 19 U/L (15-37) Alanine Aminotransferase (ALT/SGPT) 18 U/L (14-59) Alkaline Phosphatase 136 U/L (46-116) Troponin I Quantitative < 0.017 ng/mL (0.000-0.055) EB-Rok-J-Type Natriuretic Peptide 795 pg/mL (0-449) Total Protein 7.4 g/dL (6.4-8.2) Albumin 3.7 g/dL (3.4-5.0) Albumin/Globulin Ratio 1.0 (1.0-1.7) Urine Collection Type Unknown Urine Color Yellow Urine Clarity Turbid Urine pH 6.0 Urine Specific [place] 1.015 Urine Protein 100 mg/dL (NEG-TRACE) Urine Glucose (UA) Negative mg/dL (NEG) Urine Ketones (Stick) Trace mg/dL (NEG) Urine Blood Large (NEG) Urine Nitrite Positive (NEG) Urine Bilirubin Negative (NEG) Urine Urobilinogen Dipstick 0.2 mg/dL (0.2 mg/dL) Urine Leukocyte Esterase Large (NEG) Urine RBC /HPF (0-2) Urine WBC Tntc /HPF (0-4) Urine Bacteria Many /HPF (0-FEW) Medications Current Medications Ceftriaxone Sodium (Rocephin) 1 gm 1X ONCE IVP Last administered on 01/19/19at 16:27; Start 01/19/19 at 16:15; Stop 01/19/19 at 16:16; Status DC Sodium Chloride 1,000 ml @ 125 mls/hr Q8H IV Last administered on 01/20/19at 04 :37; Start 01/19/19 at 16:29; Stop 01/20/19 at 16:28 Ondansetron HCl (Zofran) 4 mg PRN Q4HRS PRN IV NAUSEA/VOMITING; Start 01/19/19 at 17:00 Zolpidem Tartrate (Ambien) 5 mg PRN QHS PRN PO INSOMNIA; Start 01/19/19 at 17: 00 Acetaminophen (Tylenol) 650 mg PRN Q4HRS PRN PO TEMP OVER 100.4F OR MILD PAIN; Start 01/19/19 at 17:00 Diphenhydramine HCl (Benadryl) 25 mg PRN Q4HRS PRN IVP ITCHING; Start 01/19/19 at 17:00 Docusate Sodium (Colace) 100 mg PRN BID PRN PO CONSTIPATION; Start 01/19/19 at 17:00 Albuterol Sulfate (Ventolin Neb Soln) 2.5 mg PRN Q4HRS PRN NEB SHORTNESS OF BREATH; Start 01/19/19 at 17:00 Albuterol/ Ipratropium (Duoneb) 3 ml Q4HRS NEB Last administered on 01/19/19at 18:22; Start 01/19/19 at 20:00 Guaifenesin (Robitussin) 200 mg PRN Q4HRS PRN PO COUGH; Start 01/19/19 at 17:00 Lorazepam (Ativan) 2 mg PRN Q4HRS PRN IV ANXIETY / AGITATION; Start 01/19/19 at 17:00 Lactobacillus Rhamnosus (Culturelle) 1 cap BID PO Last administered on at 09:23; Start 01/19/19 at 21:00 Metoprolol Succinate (Toprol Xl) 50 mg DAILY PO Last administered on 01/20/19at 09:24; Start 01/20/19 at 09:00 Tramadol HCl (Ultram) 50 mg PRN Q6HRS PRN PO PAIN; Start 01/19/19 at 17:00 Amlodipine Besylate (Norvasc) 5 mg DAILY PO Last administered on 01/20/19at 09: 23; Start 01/20/19 at 09:00 Non-Formulary Medication (Mirabegron (Myrbetriq)) 50 mg DAILY08 PO ; Start 01/20 at 08:00; Status UNV Pantoprazole Sodium (Protonix) 40 mg DAILYAC PO Last administered on 01/20/19at 09:23; Start 01/20/19 at 07:30 Albuterol/ Ipratropium (Duoneb) 3 ml STK-MED ONCE .ROUTE ; Start 01/19/19 at 18: 19; Stop 01/19/19 at 18:20; Status DC Lisinopril (Prinivil) 20 mg DAILY PO Last administered on 01/20/19at 09:24; Start 01/20/19 at 09:00 Ceftriaxone Sodium (Rocephin) 1 gm Q24H IVP ; Start 01/20/19 at 16:00 Active Scripts Active Tramadol Hcl 50 Mg Tablet 50 Mg PO Q6HRS PRN Cefuroxime (Cefuroxime Axetil) 250 Mg Tablet 250 Mg PO BID 5 Days Culturelle (Lactobacillus Rhamnosus Gg) 1 Each Cap.sprink 1 Cap PO BID 5 Days [Pantoprazole] 40 MG Tablet.dr 40 Mg PO DAILYAC 30 Days Reported Amlodipine-Benazepril 5-20 Mg (Amlodipine Besylate/Benazepril) 1 Each Capsule 1 Cap PO DAILY Metoprolol Tartrate 50 Mg Tablet 1 Tab PO DAILY08 Myrbetriq (Mirabegron) 50 Mg Tab.er.24h 50 Mg PO DAILY08 Vitals/I & O Vital Sign - Last 24 Hours 01/19/19 01/19/19 01/19/19 01/19/19 13:53 14:30 15:00 15:30 Temp 97.7 97.7 Pulse 79 84 78 76 Resp 18 16 17 16 B/P (MAP) 132/61 (84) 133/88 (103) 142/67 (92) 138/62 (87) Pulse Ox 95 96 96 96 O2 Delivery Room Air Room Air Room Air Room Air 01/19/19 01/19/19 01/19/19 01/19/19 16:00 16:30 17:45 18:24 Pulse 88 88 82 Resp 16 17 16 B/P (MAP) 145/70 (95) 155/69 (97) 155/61 (92) Pulse Ox 96 97 96 97 O2 Delivery Room Air Room Air Room Air Room Air 01/19/19 01/19/19 01/19/19 01/20/19 19:30 20:05 23:16 03:50 Temp 97.4 97.5 97.7 97.4 97.5 97.7 Pulse 90 95 98 Resp 16 16 16 B/P (MAP) 127/65 (85) 126/54 (78) 133/63 (86) Pulse Ox 92 90 90 O2 Delivery Room Air Room Air Room Air Room Air 01/20/19 01/20/19 01/20/19 01/20/19 07:00 07:00 09:23 09:24 Temp 98.0 98.0 98.0 98.0 Pulse 97 97 97 97 Resp 18 B/P (MAP) 124/64 (84) 124/64 (84) 124/64 124/64 Pulse Ox 94 94 O2 Delivery Room Air Room Air 01/20/19 09:24 Pulse 97 B/P (MAP) 124/64 Intake and Output 01/19/19 01/19/19 01/20/19 14:59 22:59 06:59 Intake Total 100 ml 300 ml Balance 100 ml 300 ml BARB WALKER MD Jan 20, 2019 10:39
--- NOTE | 2019-01-20 12:00 | PDOC2 ---
BRENDON ELIZ[facility]ETH [facility] SERVICES COORDINATOR 01/20/19 1200: CARDIAC CONSULT DATE OF CONSULT Date of Consult DATE: 01/20/19 TIME: 11:43 REASON FOR CONSULT Reason for Consult: syncope REFERRING PHYSICIAN Referring Physician: Fullbright SOURCE Source: Chart review, Patient HISTORY OF PRESENT ILLNESS HISTORY OF PRESENT ILLNESS This is an 88 yo female admitted for syncope. She is an independent 88 yo female who lives alone and still drives and now thinking she may need to quit driving. She lives about half a mile from her son and has a life alert. She went to urgent care first because she kept on having burning sensation when she urinate and noted again with UTI. She went to [facility] after that to pick her prescription and felt tired standing while waiting for her Rx and she told me that she almost fell and was probably caught by 2 guys standing next to her as she just remembered sitting when she regained consciousness. No dizzy feeling, visual or auditory disturbances, no nausea or diaphoresis, palpitations, chest pain or SOA. She drinks about 2L a day and does take BP meds. She has not had any fall, injury or any recent injury recnetly. No falls in the last 6 months and never passed out in the past. Denies any past VTE, CAD, CVA, seziure or arrhythmias. PAST MEDICAL HISTORY Cardiovascular: HTN, Hyperlipidemia Pulmonary: No pertinent hx CENTRAL NERVOUS SYSTEM: Other (No pertinent history) GI: GERD, Other (large hiatal hernia) Heme/Onc: Anemia NOS Hepatobiliary: No pertinent hx Psych: No pertinent hx Musculoskeletal: Osteoarthritis Rheumatologic: No pertinent hx Infectious disease: No pertinent hx ENT: Other ([place]) Renal/: UTI, Urinary Incontinence Endocrine: No pertinent hx Dermatology: No pertinent hx PAST SURGICAL HISTORY Past Surgical History: Hysterectomy, Other (left foot surgery) FAMILY HISTORY Family History noncontributory to age SOCIAL HISTORY Smoke: No ALCOHOL: none Drugs: None CURRENT MEDICATIONS CURRENT MEDICATIONS Current Medications Medications (Trade) Dose Ordered Sig/Martin Route PRN Reason Start Time Stop Time Status Last Admin Dose Admin Ceftriaxone Sodium (Rocephin) 1 gm 1X ONCE IVP 01/19/19 16:15 01/19/19 16:16 DC 01/19/19 16:27 Sodium Chloride 1,000 ml @ 125 mls/hr Q8H IV 01/19/19 16:29 01/20/19 16:28 01/20/19 04:37 Albuterol/ Ipratropium (Duoneb) 3 ml Q4HRS NEB 01/19/19 20:00 01/19/19 18:22 Lactobacillus Rhamnosus (Culturelle) 1 cap BID PO 01/19/19 21:00 01/20/19 09:23 Metoprolol Succinate (Toprol Xl) 50 mg DAILY PO 01/20/19 09:00 01/20/19 09:24 Amlodipine Besylate (Norvasc) 5 mg DAILY PO 01/20/19 09:00 01/20/19 09:23 Pantoprazole Sodium (Protonix) 40 mg DAILYAC PO 01/20/19 07:30 01/20/19 09:23 Lisinopril (Prinivil) 20 mg DAILY PO 01/20/19 09:00 01/20/19 09:24 ALLERGIES ALLERGIES: Coded Allergies: Yeast (Verified Allergy, Intermediate, 09/21/18) able to eat bread ROS Review of System 14 point ROS evaluated with pertinent positives noted per HPI PHYSICAL EXAM General: Alert, Oriented X3, Cooperative, No acute distress HEENT: Atraumatic, Mucous membr. moist/pink Lungs: Clear to auscultation, Normal air movement Heart: Regular rate (SR), Normal S1, Normal S2, Other (2/6 systolic murmur to LLS border) Abdomen: Soft, No tenderness Extremities: No cyanosis, No edema Skin: No breakdown, No significant lesion Neuro: Normal speech, Sensation intact Psych/Mental Status: Mental status NL, Mood NL MUSCULOSKELETAL: Osteoarthritic changes both hands, Other (kyphotic) VITALS VITALS Vital Signs Date Time Temp Pulse Resp B/P (MAP) Pulse Ox O2 Delivery O2 Flow Rate FiO2 01/20/19 11:00 97.8 80 16 121/59 (79) 92 Room Air 97.8 LABS Lab: Laboratory Tests Test 01/19/19 14:05 01/19/19 15:30 White Blood Count 6.7 x10^3/uL (4.0-11.0) Red Blood Count 3.42 x10^6/uL (3.50-5.40) Hemoglobin 11.3 g/dL (12.0-15.5) Hematocrit 33.9 % (36.0-47.0) Mean Corpuscular Volume 99 fL (79-100) Mean Corpuscular Hemoglobin 33 pg (25-35) Mean Corpuscular Hemoglobin Concent 34 g/dL (31-37) Red Cell Distribution Width 11.9 % (11.5-14.5) Platelet Count 236 x10^3/uL (140-400) Neutrophils (%) (Auto) 57 % (31-73) Lymphocytes (%) (Auto) 29 % (24-48) Monocytes (%) (Auto) 11 % (0-9) Eosinophils (%) (Auto) 2 % (0-3) Basophils (%) (Auto) 1 % (0-3) Neutrophils # (Auto) 3.8 x10^3uL (1.8-7.7) Lymphocytes # (Auto) 1.9 x10^3/uL (1.0-4.8) Monocytes # (Auto) 0.7 x10^3/uL (0.0-1.1) Eosinophils # (Auto) 0.1 x10^3/uL (0.0-0.7) Basophils # (Auto) 0.1 x10^3/uL (0.0-0.2) Sodium Level 138 mmol/L (136-145) Potassium Level 4.1 mmol/L (3.5-5.1) Chloride Level 102 mmol/L (98-107) Carbon Dioxide Level 24 mmol/L (21-32) Anion Gap 12 (6-14) Blood Urea Nitrogen 26 mg/dL (7-20) Creatinine 1.1 mg/dL (0.6-1.0) Estimated GFR (Cockcroft-Gault) 46.8 BUN/Creatinine Ratio 24 (6-20) Glucose Level 112 mg/dL (70-99) Lactic Acid Level 1.7 mmol/L (0.4-2.0) Calcium Level 8.9 mg/dL (8.5-10.1) Magnesium Level 2.1 mg/dL (1.8-2.4) Total Bilirubin 0.6 mg/dL (0.2-1.0) Aspartate Amino Transf (AST/SGOT) 19 U/L (15-37) Alanine Aminotransferase (ALT/SGPT) 18 U/L (14-59) Alkaline Phosphatase 136 U/L (46-116) Troponin I Quantitative < 0.017 ng/mL (0.000-0.055) BJ-Hvr-C-Type Natriuretic Peptide 795 pg/mL (0-449) Total Protein 7.4 g/dL (6.4-8.2) Albumin 3.7 g/dL (3.4-5.0) Albumin/Globulin Ratio 1.0 (1.0-1.7) Urine Collection Type Unknown Urine Color Yellow Urine Clarity Turbid Urine pH 6.0 Urine Specific [place] 1.015 Urine Protein 100 mg/dL (NEG-TRACE) Urine Glucose (UA) Negative mg/dL (NEG) Urine Ketones (Stick) Trace mg/dL (NEG) Urine Blood Large (NEG) Urine Nitrite Positive (NEG) Urine Bilirubin Negative (NEG) Urine Urobilinogen Dipstick 0.2 mg/dL (0.2 mg/dL) Urine Leukocyte Esterase Large (NEG) Urine RBC /HPF (0-2) Urine WBC Tntc /HPF (0-4) Urine Bacteria Many /HPF (0-FEW) ASSESSMENT/PLAN ASSESSMENT/PLAN 1. Syncope: suspect vasovagal brief, doubt arrhythmia related and negative for orthostasis. 2. HTN: controlled 3. HLP 4. 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 Cerebral atrophy Recommendations TTE, monitor rhythm Continue with BP regimen including BB. Encouraged hydration adequacy. May need to stop amlodipine and maintain BP at higher end. Check TSH and orthostatic readings. CHINA TAMEZ MD 01/20/19 3605: CARDIAC CONSULT ASSESSMENT/PLAN ASSESSMENT/PLAN 88 y.o woman with near syncope in the setting of severe UTI. Normal EF with mild to moderate valve disease which should not lead to syncope. Continue present meds. Close BP monitoring No significant sustained arrhythmias. Thanks BRENDON ELIZ[facility] SERVICES COORDINATOR Jan 20, 2019 12:00 CHINA TAMEZ MD Jan 20, 2019 15:45
--- NOTE | 2019-01-20 12:26 | CARD ---
MR#: [id number] Date of Study: 01/20/2019 Ordering Physician: BARB WALKER, Referring Physician: KEL GRIER Tech: Debi Valdez RDCS APPROVED REPORT EXAM: Two-dimensional and M-mode echocardiogram with Doppler and color Doppler. Other Information Quality : Good INDICATION Syncope 2D DIMENSIONS RVDd2.7 (2.9-3.5cm)Left Atrium(2D)2.3 (1.6-4.0cm) IVSd0.8 (0.7-1.1cm)Aortic Root(2D)2.6 (2.0-3.7cm) LVDd3.6 (3.9-5.9cm)LVOT Diameter1.9 (1.8-2.4cm) PWd0.8 (0.7-1.1cm)LVDs2.5 (2.5-4.0cm) FS (%) 28.8 %SV30.0 ml LVEF(%)56.4 (>50%) Aortic Valve AoV Peak Hood.195.6cm/sAoV VTI44.7cm AO Peak GR.15.3mmHgLVOT Peak Hood.98.4cm/s LVOT VTI 23.34cmAO Mean GR.9mmHg ALYSSIA (VMAX)1.64mt6QIS (VTI)1.44cm2 AI P 1/2 Kdud675xr Mitral Valve MV E Zwmeouev71.8cm/sMV DECEL [id number] MV A Xbhbxjzr61.3cm/sMV LIK62zz E/A Ratio0.9MVA (PHT)4.82cm2 TDI E/Lateral E'12.5E/Medial E'14.3 Tricuspid Valve TR P. Rzbxgdyb443wm/sRAP TRNCWTLE0umEg TR Peak Gr.03ywOsLWQQ38pvCl Pulmonary Vein S1 Odewvhjc53.1cm/sD2 Xjapeqyc94.1cm/s LEFT VENTRICLE The left ventricle is normal size. There is normal left ventricular wall thickness. The left ventricu lar systolic function is normal and the ejection fraction is within normal range. The Ejection Fracti on is 55-60%. There is normal LV segmental wall motion. Transmitral Doppler flow pattern is Grade I-a bnormal relaxation pattern. RIGHT VENTRICLE The right ventricle is normal size. The right ventricular systolic function is normal. ATRIA The left atrium size is normal. The right atrium size is normal. The interatrial septum is intact wit h no evidence for an atrial septal defect or patent foramen ovale as noted on 2-D or Doppler imaging. AORTIC VALVE The aortic valve is mildly thickened but opens well. Doppler and Color Flow revealed mild to moderate aortic regurgitation. There is no significant aortic valvular stenosis. MITRAL VALVE The mitral valve is calcified but opens well. There is no evidence of mitral valve prolapse. There is no mitral valve stenosis. Doppler and Color-flow revealed mild to moderate eccentric mitral regurgit ation. TRICUSPID VALVE The tricuspid valve is normal in structure and function. Doppler and Color Flow revealed mild tricusp id regurgitation. There is moderate pulmonary hypertension. The PA pressure was estimated at 48 mmHg. There is no tricuspid valve stenosis. PULMONIC VALVE The pulmonic valve is not well visualized. Doppler and Color Flow revealed mild pulmonic valvular reg urgitation. There is no pulmonic valvular stenosis. GREAT VESSELS The aortic root is normal in size. The ascending aorta is not well seen. The IVC is normal in size an d collapses >50% with inspiration. PERICARDIAL EFFUSION There is no evidence of significant pericardial effusion. Critical Notification Critical Value: No <Conclusion> The left ventricle is normal size. The left ventricular systolic function is normal and the ejection fraction is within normal range. The Ejection Fraction is 55-60%. There is no significant aortic valvular stenosis. Doppler and Color Flow revealed mild to moderate aortic regurgitation. Doppler and Color-flow revealed mild to moderate eccentric mitral regurgitation. Doppler and Color Flow revealed mild tricuspid regurgitation. There is moderate pulmonary hypertension. The PA pressure was estimated at 48 mmHg. Signed by : Oliver Sanchez MD Electronically Approved : 01/20/2019 12:26:15
[2019-01-20] MEDS ORDERED: IPRATRPIUM/ALBUTEROL 0.5/2.5MG 3 ML NEBU. NEB PRN (12:45)
--- NOTE | 2019-01-20 14:02 | RAD ---
Clinical Indications: Syncope. Exam : Carotid Duplex with Grayscale Ultrasound and Spectral and Color Doppler Analysis: PQRS Compliance Statement - Stenosis calculations for CT, MR and conventional angiography are based upon measurement of the distal ICA diameter in accordance with the NASCET methodology. Stenosis calculations for carotid ultrasound studies are derived from validated velocity criteria which are known to correlate with the NASCET methodology. Comparison study: None available. Findings: The common, internal and external carotid arteries were examined by grayscale, color and spectral Doppler ultrasound. Mild atherosclerotic plaque identified in the bilateral carotid bulbs and the bilateral internal carotid arteries. Flow in both vertebral arteries was antegrade and normal. The following are the velocities and ratios in the carotid arteries on both sides: RIGHT ICA PV: 77cm/sec RIGHT CCA PV: 74cm/sec RIGHT ICA ED: 17cm/sec RIGHT IC/CCPV: 1.0 RIGHT VERTEBRAL: antegrade flow RIGHT % STENOSIS: Less than 50% LEFT ICA PV: 116cm/sec LEFT CCA PV: 63cm/sec LEFT ICA ED: 22cm/sec LEFT IC/CCPV: 1.8 LEFT VERTEBRAL: antegrade flow LEFT % STENOSIS: Less than 50% <50% ICA Stenosis: PSV < 125cm/s (EDV < 40cm/s; SVR < 2.0) 50-69% ICA Stenosis: PSV < 125-229cm/s (EDV 40-99cm/s; SVR 2.0-3.9) >70% ICA Stenosis: PSV > 230cm/s (EDV >100cm/s; SVR >4.0) Impression: 1. No evidence of hemodynamically significant stenosis. Electronically signed by: Sudhir Ochoa MD (01/20/2019 1:59 PM) [id number]
[2019-01-20] MEDS ORDERED: cefTRIAXone IV Push 1 GM VIAL. IVP SCH (16:00)
--- NOTE | 2019-01-20 16:16 | RAD ---
Chest, PA and Lateral: Technique: PA and lateral views of the chest were obtained. History: Hypoxia. Comparison: 09/20/2018. Findings: Mild cardiomegaly. Elevated right hemidiaphragm with the bowel loops under the right hemidiaphragm again identified. There is probable volume loss in the right lower lobe of the lung. There is diffuse prominent appearing bilateral interstitial lung markings likely congestive changes or diffuse chronic interstitial changes. Moderate degenerative changes thoracic spine. IMPRESSION: 1. Elevated right hemidiaphragm with bowel loops under the right hemidiaphragm again identified. Probable volume loss right lower lobe of the lung. 2. Diffuse prominent appearing bilateral interstitial lung markings likely chronic interstitial changes or edema. Electronically signed by: Sudhir Ochoa MD (01/20/2019 4:13 PM) [facility]
--- NOTE | 2019-01-20 18:23 | PDOC2 ---
NEUROLOGY CONSULT Date of Admission Date of Admission DATE: 01/20/19 TIME: 18:10 Reason for Consult Reason for Consult: IMPRESSION: Near syncope. UTI. HTN. HLD. Cognitive impairment. RECOMMENDATIONS/PLAN: Treat UTI. Treat medical diseases. Consulted Cardiology. Lab: see orders. EEG as outpatient. Carotid A US + Doppler: No hemodynamically stenosis. HCT: negative. HISTORY OF PRESENT ILLNESS This is an 88-y-old female patient admitted due to a near syncopal spell. She went to urgent care on 01/19/19 because she had symptoms of urinary frequency noted UTI. She went to [facility] after that to pick her prescription and felt tired standing while waiting for her Rx she almost fell and was probably caught by people standing next to her as she just remembered sitting when she regained consciousness. No focalized sensory or motor deficits. PAST MEDICAL HISTORY Cardiovascular: HTN, Hyperlipidemia Pulmonary: No pertinent hx CENTRAL NERVOUS SYSTEM: Other (No pertinent history) GI: GERD, Other (large hiatal hernia) Heme/Onc: Anemia NOS Hepatobiliary: No pertinent hx Psych: No pertinent hx Musculoskeletal: Osteoarthritis Rheumatologic: No pertinent hx Infectious disease: No pertinent hx ENT: Other ([facility]) Renal/: UTI, Urinary Incontinence Endocrine: No pertinent hx Dermatology: No pertinent hx PAST SURGICAL HISTORY Hysterectomy, left foot surgery. FAMILY HISTORY Noncontributory to age ALLERGIES Yeast (Verified Allergy, Intermediate, 09/21/18), able to eat bread MEDICATIONS: Refer to [facility] SOCIAL HISTORY: Lives at home. Denies current smoking, drinking, and illicit drug use. REVIEW OF SYSTEMS: Constitutional: No malnutrition, weight loss, cachexia. Head: No traumatic brain or head injury. Skin: No edema, or rash. Ear: No infection. Eyes: No vision loss or color blindness. Nose: No bleeding or purulent discharges. Hearing: No hearing decrease. Neck: No injury. Breast: No history of cancer, masses,or discharges. Cardiac: HTN, HLD. Pulmonary: No COPD. GI: No GI ulcer, GI bleeding. Urinary/genital: UTI. Endocrinologic: No cousin face, craniofacial dysmorphism, polydactyly. Skeletomuscular: Generalized weakness. Neurological: see HP. Psychiatric: Denies drug use/abuse. Otherwise, not [id number] review of systems. PHYSICAL EXAMINATION: General appearance is in no acute distress. HEENT: Normocephalic and nontraumatic. Eyes, nose, ears, and throat are unremarkable. Neck is supple. No lymphadenopathy. No bruits are heard over the carotid artery. No crepitus. Cardiovascular: S1, S2, regular rate and rhythm. Pulmonary: Clear to auscultation bilaterally. Abdomen: Bowel sounds are positive. Abdomen is soft, nontender, and nondistended. Extremities: No rash, lesions, or edema. No restriction of range of motion NEUROLOGICAL EXAMINATION: Awake. Oriented to time, place and person. PERRL. EOMI. CN: no focal findings. Muscle tone: within normal. Muscle strength: 5- DTR: 2- Plantar reflex: Neutral response bilaterally Gait: not examined in bed. Sensory exam: no abnormal findings. No cerebellar signs elicited. F-T-N test fine. Current Medications Current Medications Current Medications Ceftriaxone Sodium (Rocephin) 1 gm 1X ONCE IVP Last administered on 01/19/19at 16:27; Start 01/19/19 at 16:15; Stop 01/19/19 at 16:16; Status DC Sodium Chloride 1,000 ml @ 125 mls/hr Q8H IV Last administered on 01/20/19at 16 :35; Start 01/19/19 at 16:29; Stop 01/20/19 at 16:28; Status DC Ondansetron HCl (Zofran) 4 mg PRN Q4HRS PRN IV NAUSEA/VOMITING; Start 01/19/19 at 17:00 Zolpidem Tartrate (Ambien) 5 mg PRN QHS PRN PO INSOMNIA; Start 01/19/19 at 17: 00 Acetaminophen (Tylenol) 650 mg PRN Q4HRS PRN PO TEMP OVER 100.4F OR MILD PAIN; Start 01/19/19 at 17:00 Diphenhydramine HCl (Benadryl) 25 mg PRN Q4HRS PRN IVP ITCHING; Start 01/19/19 at 17:00 Docusate Sodium (Colace) 100 mg PRN BID PRN PO CONSTIPATION; Start 01/19/19 at 17:00 Albuterol Sulfate (Ventolin Neb Soln) 2.5 mg PRN Q4HRS PRN NEB SHORTNESS OF BREATH; Start 01/19/19 at 17:00 Albuterol/ Ipratropium (Duoneb) 3 ml Q4HRS NEB Last administered on 01/19/19at 18:22; Start 01/19/19 at 20:00; Stop 01/20/19 at 12:42; Status DC Guaifenesin (Robitussin) 200 mg PRN Q4HRS PRN PO COUGH; Start 01/19/19 at 17:00 Lorazepam (Ativan) 2 mg PRN Q4HRS PRN IV ANXIETY / AGITATION; Start 01/19/19 at 17:00; Stop 01/20/19 at 10:53; Status DC Lactobacillus Rhamnosus (Culturelle) 1 cap BID PO Last administered on at 09:23; Start 01/19/19 at 21:00 Metoprolol Succinate (Toprol Xl) 50 mg DAILY PO Last administered on 01/20/19at 09:24; Start 01/20/19 at 09:00 Tramadol HCl (Ultram) 50 mg PRN Q6HRS PRN PO MODERATE TO SEVERE PAIN; Start 07/30 at 17:00 Amlodipine Besylate (Norvasc) 5 mg DAILY PO Last administered on 01/20/19at 09: 23; Start 01/20/19 at 09:00 Non-Formulary Medication (Mirabegron (Myrbetriq)) 50 mg DAILY08 PO ; Start 01/20 at 08:00; Status UNV Pantoprazole Sodium (Protonix) 40 mg DAILYAC PO Last administered on 01/20/19at 09:23; Start 01/20/19 at 07:30 Albuterol/ Ipratropium (Duoneb) 3 ml STK-MED ONCE .ROUTE ; Start 01/19/19 at 18: 19; Stop 01/19/19 at 18:20; Status DC Lisinopril (Prinivil) 20 mg DAILY PO Last administered on 01/20/19at 09:24; Start 01/20/19 at 09:00 Ceftriaxone Sodium (Rocephin) 1 gm Q24H IVP Last administered on 01/20/19at 16: 35; Start 01/20/19 at 16:00 Albuterol/ Ipratropium (Duoneb) 3 ml PRN Q4HRS PRN NEB SHORTNESS OF BREATH; Start 01/20/19 at 12:45 Active Scripts Active Tramadol Hcl 50 Mg Tablet 50 Mg PO Q6HRS PRN Cefuroxime (Cefuroxime Axetil) 250 Mg Tablet 250 Mg PO BID 5 Days Culturelle (Lactobacillus Rhamnosus Gg) 1 Each Cap.sprink 1 Cap PO BID 5 Days [Pantoprazole] 40 MG Tablet.dr 40 Mg PO DAILYAC 30 Days Reported Amlodipine-Benazepril 5-20 Mg (Amlodipine Besylate/Benazepril) 1 Each Capsule 1 Cap PO DAILY Metoprolol Tartrate 50 Mg Tablet 1 Tab PO DAILY08 Myrbetriq (Mirabegron) 50 Mg Tab.er.24h 50 Mg PO DAILY08 Allergies Allergies: Allergies Coded Allergies Type Severity Reaction Last Updated Verified Yeast Allergy Intermediate 09/21/18 Yes ROS Review of System The patient denies any associated fevers, chills, headache, ear pain, rhinorrhea , sore throat, stiff neck, productive cough, chest pain, shortness of breath, back or flank pain, abdominal pain, nausea, vomiting, diarrhea, constipation, dysuria, rash, numbness, weakness, tingling, incontinence, difficulty ambulating, or diaphoresis. Physical Exam Physical Exam General: Well developed, well nourished, no acute distress, well appearing HEENT: Pupils equally round and reactive to light, EOMI, no discharge, normal conjunctiva Neck: Supple, no nuchal rigidity, no JVD, trachea midline, no tenderness Cardiac: RRR, no murmurs, no gallops, no rubs Chest/Lungs: CTAB, no wheeze, no rhonchi, no crackles Abdomen: soft, non-distended, no guarding, no peritoneal signs, non-tender Back: No tenderness Extremities: no edema, pulses intact, non-tender,capillary refill <3 sec bilateral upper and lower extremities, Neuro: Alert and oriented x 4, no focal deficits, normal speech Vitals Vitals: Vital Signs Date Time Temp Pulse Resp B/P (MAP) Pulse Ox O2 Delivery O2 Flow Rate FiO2 01/20/19 15:00 98.0 79 18 139/63 (88) 94 Room Air 98.0 Labs Labs Laboratory Tests Test 01/19/19 14:05 01/19/19 15:30 01/20/19 11:25 White Blood Count 6.7 x10^3/uL (4.0-11.0) Red Blood Count 3.42 x10^6/uL (3.50-5.40) Hemoglobin 11.3 g/dL (12.0-15.5) Hematocrit 33.9 % (36.0-47.0) Mean Corpuscular Volume 99 fL (79-100) Mean Corpuscular Hemoglobin 33 pg (25-35) Mean Corpuscular Hemoglobin Concent 34 g/dL (31-37) Red Cell Distribution Width 11.9 % (11.5-14.5) Platelet Count 236 x10^3/uL (140-400) Neutrophils (%) (Auto) 57 % (31-73) Lymphocytes (%) (Auto) 29 % (24-48) Monocytes (%) (Auto) 11 % (0-9) Eosinophils (%) (Auto) 2 % (0-3) Basophils (%) (Auto) 1 % (0-3) Neutrophils # (Auto) 3.8 x10^3uL (1.8-7.7) Lymphocytes # (Auto) 1.9 x10^3/uL (1.0-4.8) Monocytes # (Auto) 0.7 x10^3/uL (0.0-1.1) Eosinophils # (Auto) 0.1 x10^3/uL (0.0-0.7) Basophils # (Auto) 0.1 x10^3/uL (0.0-0.2) Sodium Level 138 mmol/L (136-145) Potassium Level 4.1 mmol/L (3.5-5.1) Chloride Level 102 mmol/L (98-107) Carbon Dioxide Level 24 mmol/L (21-32) Anion Gap 12 (6-14) Blood Urea Nitrogen 26 mg/dL (7-20) Creatinine 1.1 mg/dL (0.6-1.0) Estimated GFR (Cockcroft-Gault) 46.8 BUN/Creatinine Ratio 24 (6-20) Glucose Level 112 mg/dL (70-99) Lactic Acid Level 1.7 mmol/L (0.4-2.0) Calcium Level 8.9 mg/dL (8.5-10.1) Magnesium Level 2.1 mg/dL (1.8-2.4) Total Bilirubin 0.6 mg/dL (0.2-1.0) Aspartate Amino Transf (AST/SGOT) 19 U/L (15-37) Alanine Aminotransferase (ALT/SGPT) 18 U/L (14-59) Alkaline Phosphatase 136 U/L (46-116) Troponin I Quantitative < 0.017 ng/mL (0.000-0.055) < 0.017 ng/mL (0.000-0.055) BK-Jhs-M-Type Natriuretic Peptide 795 pg/mL (0-449) Total Protein 7.4 g/dL (6.4-8.2) Albumin 3.7 g/dL (3.4-5.0) Albumin/Globulin Ratio 1.0 (1.0-1.7) Urine Collection Type Unknown Urine Color Yellow Urine Clarity Turbid Urine pH 6.0 Urine Specific [place] 1.015 Urine Protein 100 mg/dL (NEG-TRACE) Urine Glucose (UA) Negative mg/dL (NEG) Urine Ketones (Stick) Trace mg/dL (NEG) Urine Blood Large (NEG) Urine Nitrite Positive (NEG) Urine Bilirubin Negative (NEG) Urine Urobilinogen Dipstick 0.2 mg/dL (0.2 mg/dL) Urine Leukocyte Esterase Large (NEG) Urine RBC /HPF (0-2) Urine WBC Tntc /HPF (0-4) Urine Bacteria Many /HPF (0-FEW) Thyroid Stimulating Hormone (TSH) 1.031 uIU/mL (0.358-3.74) Laboratory Tests Test 01/20/19 11:25 Troponin I Quantitative < 0.017 ng/mL (0.000-0.055) Thyroid Stimulating Hormone (TSH) 1.031 uIU/mL (0.358-3.74) ANTOINETTE COLLINS MD Jan 20, 2019 18:23
[2019-01-21] VITALS (7 sets, daily range): BP systolic 110–169; BP diastolic 41–66
[2019-01-21 04:44] LABS: BASO % 1 % (0-3); EOS # 0.3 x10^3/uL (0.0-0.7); EOS % 5 % (0-3); HEMATOCRIT 27.1 % (36.0-47.0); HEMOGLOBIN 9.2 g/dL (12.0-15.5); LYMPH # 1.8 x10^3/uL (1.0-4.8); LYMPH % 32 % (24-48); MEAN CORPUSCULAR HEMOGLOBIN 34 pg (25-35); MEAN CORPUSCULAR HGB CONC 34 g/dL (31-37); MEAN CORPUSCULAR VOLUME 99 fL (79-100); MONO # 0.7 x10^3/uL (0.0-1.1); MONO % 12 % (0-9); NEUT # 2.9 x10^3uL (1.8-7.7); NEUT % 51 % (31-73); PLATELET COUNT 178 x10^3/uL (140-400); RED BLOOD COUNT 2.73 x10^6/uL (3.50-5.40); RED CELL DISTRIBUTION WIDTH 12.2 % (11.5-14.5); WHITE BLOOD COUNT 5.6 x10^3/uL (4.0-11.0)
[2019-01-21 05:14] LABS: ALBUMIN 2.6 g/dL (3.4-5.0); ALBUMIN/GLOBULIN RATIO 0.8 (1.0-1.7); CALCIUM 7.9 mg/dL (8.5-10.1); GFR 52.2; POTASSIUM 3.7 mmol/L (3.5-5.1); TOTAL BILIRUBIN 0.4 mg/dL (0.2-1.0); TOTAL PROTEIN 5.7 g/dL (6.4-8.2)
[2019-01-21] MEDS: NON FORMULARY ITEM (Mirabegron (Myrbetriq) 50 MG) PO SCH (08:00)
[2019-01-21] MEDS: LACTOBACILLUS RHAMNOSUS GG 1 CAPSULE. PO SCH ×2 (09:11→21:42)
[2019-01-21] MEDS: PANTOPRAZOLE 40 MG TABLET.DR. PO SCH (09:11)
[2019-01-21] MEDS: METOPROLOL SUCC 24HR ER 50 MG TAB.ER.24H. PO SCH (09:12)
[2019-01-21] MEDS: LISINOPRIL 20 MG TABLET PO SCH (09:12)
[2019-01-21] MEDS: amLODIPine BESYLATE 5 MG TABLET PO SCH (09:12)
--- NOTE | 2019-01-21 10:28 | PDOC ---
PROGRESS NOTES Chief Complaint Chief Complaint as at [facility] picking up prescriptions for somebody else when she gets "tired of standing". She does not remember falling to the ground and she apparently had a syncopal episode she woke up quite quickly there was no seizure-like activity reported. The patient denies having had urinary or bowel incontinence History of Present Illness History of Present Illness VTE Prophylaxis Ordered VTE Prophylaxis Devices: No VTE Pharmacological Prophylaxi: Yes Assessment/Plan Syncopal episode, cardiac etiology, vs neurological event , SUSPECT ORTHOSTASIS History of hypertension CKD stage 3a Asymptomatic bacteriuria UTI HYPOXIA POA, WITH SLEEP GERD Diffuse prominent appearing bilateral interstitial lung markings likely chronic interstitial changes or edema. 01/21 HAD EPISODE OF EMESIS WITH LUNCH TODAY Plan: CXR rocvephin IV Q 24 HRS continue resume home meds check orthostatics dvt prophylaxis: heparin Pt eval further recommendations based on clinical course. NEUROLOGY CONSULT TELE NEUROCHECKS Q 4 HRS DOPPLER CAROTIDS ECHO 35 min pt exam, chart review, > 50% of time spent with exam, chart review, pt care coordination Vitals Vitals Vital Signs Date Time Temp Pulse Resp B/P (MAP) Pulse Ox O2 Delivery O2 Flow Rate FiO2 01/21/19 09:12 94 169/49 01/21/19 07:00 97.6 20 92 Room Air 97.6 Physical Exam Physical Exam Head: Normal shape atraumatic Eyes: Pupils equal reactive to light and accommodation, normal conjunctivae and lids Ears: Normal shape Nose: Normal shape no trauma Mouth: No exudates of the back of throat no thrush no lesions Neck: Supple no JVD no carotid bruit or lymphadenopathy no thyromegaly Chest: Lungs clear to auscultation with good inspiratory effort no crackles rales or rhonchi Cardiovascular: S1-S2 regular rhythm no murmurs gallops or rubs Abdomen: Bowel sounds present soft nontender no hepatosplenomegaly appreciated sign Extremities: No clubbing no cyanosis no edema peripheral pulses palpated bilaterally Neurological: Alert awake oriented in person time place and situation, cranial nerves II through XII intact, General: Alert, Oriented X3, Cooperative, No acute distress Heart: Regular rate (SR), Normal S1, Normal S2, Other (2/6 systolic murmur to LLS border) Lungs: Clear Abdomen: Soft, No tenderness Extremities: No cyanosis, No edema Skin: No breakdown, No significant lesion Labs LABS Chest, PA and Lateral: Technique: PA and lateral views of the chest were obtained. History: Hypoxia. Comparison: 09/20/2018. Findings: Mild cardiomegaly. Elevated right hemidiaphragm with the bowel loops under the right hemidiaphragm again identified. There is probable volume loss in the right lower lobe of the lung. There is diffuse prominent appearing bilateral interstitial lung markings likely congestive changes or diffuse chronic interstitial changes. Moderate degenerative changes thoracic spine. IMPRESSION: 1. Elevated right hemidiaphragm with bowel loops under the right hemidiaphragm again identified. Probable volume loss right lower lobe of the lung. 2. Diffuse prominent appearing bilateral interstitial lung markings likely chronic interstitial changes or edema. Electronically signed by: Sudhir Ochoa MD (01/20/2019 4:13 PM) [facility] DICTATED and SIGNED BY: SUDHIR OCHOA MD DATE: 01/20/19 1613 Clinical Indications: Syncope. Exam : Carotid Duplex with Grayscale Ultrasound and Spectral and Color Doppler Analysis: RS Compliance Statement - Stenosis calculations for CT, MR and conventional angiography are based upon measurement of the distal ICA diameter in accordance with the NASCET methodology. Stenosis calculations for carotid ultrasound studies are derived from validated velocity criteria which are known to correlate with the NASCET methodology. Comparison study: None available. Findings: The common, internal and external carotid arteries were examined by grayscale, color and spectral Doppler ultrasound. Mild atherosclerotic plaque identified in the bilateral carotid bulbs and the bilateral internal carotid arteries. Flow in both vertebral arteries was antegrade and normal. The following are the velocities and ratios in the carotid arteries on both sides: RIGHT ICA PV: 77cm/sec RIGHT CCA PV: 74cm/sec RIGHT ICA ED: 17cm/sec RIGHT IC/CCPV: 1.0 RIGHT VERTEBRAL: antegrade flow RIGHT % STENOSIS: Less than 50% LEFT ICA PV: 116cm/sec LEFT CCA PV: 63cm/sec LEFT ICA ED: 22cm/sec LEFT IC/CCPV: 1.8 LEFT VERTEBRAL: antegrade flow LEFT % STENOSIS: Less than 50% <50% ICA Stenosis: PSV < 125cm/s (EDV < 40cm/s; SVR < 2.0) 50-69% ICA Stenosis: PSV < 125-229cm/s (EDV 40-99cm/s; SVR 2.0-3.9) >70% ICA Stenosis: PSV > 230cm/s (EDV >100cm/s; SVR >4.0) Impression: 1. No evidence of hemodynamically significant stenosis. Electronically signed by: Sudhir Ochoa MD (01/20/2019 1:59 PM) [facility] Laboratory Tests Test 01/20/19 11:25 01/21/19 04:35 Troponin I Quantitative < 0.017 ng/mL (0.000-0.055) Thyroid Stimulating Hormone (TSH) 1.031 uIU/mL (0.358-3.74) White Blood Count 5.6 x10^3/uL (4.0-11.0) Red Blood Count 2.73 x10^6/uL (3.50-5.40) Hemoglobin 9.2 g/dL (12.0-15.5) Hematocrit 27.1 % (36.0-47.0) Mean Corpuscular Volume 99 fL (79-100) Mean Corpuscular Hemoglobin 34 pg (25-35) Mean Corpuscular Hemoglobin Concent 34 g/dL (31-37) Red Cell Distribution Width 12.2 % (11.5-14.5) Platelet Count 178 x10^3/uL (140-400) Neutrophils (%) (Auto) 51 % (31-73) Lymphocytes (%) (Auto) 32 % (24-48) Monocytes (%) (Auto) 12 % (0-9) Eosinophils (%) (Auto) 5 % (0-3) Basophils (%) (Auto) 1 % (0-3) Neutrophils # (Auto) 2.9 x10^3uL (1.8-7.7) Lymphocytes # (Auto) 1.8 x10^3/uL (1.0-4.8) Monocytes # (Auto) 0.7 x10^3/uL (0.0-1.1) Eosinophils # (Auto) 0.3 x10^3/uL (0.0-0.7) Basophils # (Auto) 0.0 x10^3/uL (0.0-0.2) Sodium Level 142 mmol/L (136-145) Potassium Level 3.7 mmol/L (3.5-5.1) Chloride Level 108 mmol/L (98-107) Carbon Dioxide Level 25 mmol/L (21-32) Anion Gap 9 (6-14) Blood Urea Nitrogen 15 mg/dL (7-20) Creatinine 1.0 mg/dL (0.6-1.0) Estimated GFR (Cockcroft-Gault) 52.2 BUN/Creatinine Ratio 15 (6-20) Glucose Level 103 mg/dL (70-99) Calcium Level 7.9 mg/dL (8.5-10.1) Total Bilirubin 0.4 mg/dL (0.2-1.0) Aspartate Amino Transf (AST/SGOT) 15 U/L (15-37) Alanine Aminotransferase (ALT/SGPT) 13 U/L (14-59) Alkaline Phosphatase 98 U/L (46-116) Total Protein 5.7 g/dL (6.4-8.2) Albumin 2.6 g/dL (3.4-5.0) Albumin/Globulin Ratio 0.8 (1.0-1.7) Assessment and Plan Assessmemt and Plan Problems Medical Problems: (1) Anemia Status: Acute (2) Chronic renal insufficiency Status: Acute (3) Syncope Status: Acute Comment Review of Relevant I have reviewed the following items baudilio (where applicable) has been applied. Labs Laboratory Tests Test 01/19/19 14:05 01/19/19 15:30 01/20/19 11:25 01/21/19 04:35 White Blood Count 6.7 x10^3/uL (4.0-11.0) 5.6 x10^3/uL (4.0-11.0) Red Blood Count 3.42 x10^6/uL (3.50-5.40) 2.73 x10^6/uL (3.50-5.40) Hemoglobin 11.3 g/dL (12.0-15.5) 9.2 g/dL (12.0-15.5) Hematocrit 33.9 % (36.0-47.0) 27.1 % (36.0-47.0) Mean Corpuscular Volume 99 fL (79-100) 99 fL (79-100) Mean Corpuscular Hemoglobin 33 pg (25-35) 34 pg (25-35) Mean Corpuscular Hemoglobin Concent 34 g/dL (31-37) 34 g/dL (31-37) Red Cell Distribution Width 11.9 % (11.5-14.5) 12.2 % (11.5-14.5) Platelet Count 236 x10^3/uL (140-400) 178 x10^3/uL (140-400) Neutrophils (%) (Auto) 57 % (31-73) 51 % (31-73) Lymphocytes (%) (Auto) 29 % (24-48) 32 % (24-48) Monocytes (%) (Auto) 11 % (0-9) 12 % (0-9) Eosinophils (%) (Auto) 2 % (0-3) 5 % (0-3) Basophils (%) (Auto) 1 % (0-3) 1 % (0-3) Neutrophils # (Auto) 3.8 x10^3uL (1.8-7.7) 2.9 x10^3uL (1.8-7.7) Lymphocytes # (Auto) 1.9 x10^3/uL (1.0-4.8) 1.8 x10^3/uL (1.0-4.8) Monocytes # (Auto) 0.7 x10^3/uL (0.0-1.1) 0.7 x10^3/uL (0.0-1.1) Eosinophils # (Auto) 0.1 x10^3/uL (0.0-0.7) 0.3 x10^3/uL (0.0-0.7) Basophils # (Auto) 0.1 x10^3/uL (0.0-0.2) 0.0 x10^3/uL (0.0-0.2) Sodium Level 138 mmol/L (136-145) 142 mmol/L (136-145) Potassium Level 4.1 mmol/L (3.5-5.1) 3.7 mmol/L (3.5-5.1) Chloride Level 102 mmol/L (98-107) 108 mmol/L (98-107) Carbon Dioxide Level 24 mmol/L (21-32) 25 mmol/L (21-32) Anion Gap 12 (6-14) 9 (6-14) Blood Urea Nitrogen 26 mg/dL (7-20) 15 mg/dL (7-20) Creatinine 1.1 mg/dL (0.6-1.0) 1.0 mg/dL (0.6-1.0) Estimated GFR (Cockcroft-Gault) 46.8 52.2 BUN/Creatinine Ratio 24 (6-20) 15 (6-20) Glucose Level 112 mg/dL (70-99) 103 mg/dL (70-99) Lactic Acid Level 1.7 mmol/L (0.4-2.0) Calcium Level 8.9 mg/dL (8.5-10.1) 7.9 mg/dL (8.5-10.1) Magnesium Level 2.1 mg/dL (1.8-2.4) Total Bilirubin 0.6 mg/dL (0.2-1.0) 0.4 mg/dL (0.2-1.0) Aspartate Amino Transf (AST/SGOT) 19 U/L (15-37) 15 U/L (15-37) Alanine Aminotransferase (ALT/SGPT) 18 U/L (14-59) 13 U/L (14-59) Alkaline Phosphatase 136 U/L (46-116) 98 U/L (46-116) Troponin I Quantitative < 0.017 ng/mL (0.000-0.055) < 0.017 ng/mL (0.000-0.055) IK-Twp-B-Type Natriuretic Peptide 795 pg/mL (0-449) Total Protein 7.4 g/dL (6.4-8.2) 5.7 g/dL (6.4-8.2) Albumin 3.7 g/dL (3.4-5.0) 2.6 g/dL (3.4-5.0) Albumin/Globulin Ratio 1.0 (1.0-1.7) 0.8 (1.0-1.7) Urine Collection Type Unknown Urine Color Yellow Urine Clarity Turbid Urine pH 6.0 Urine Specific [place] 1.015 Urine Protein 100 mg/dL (NEG-TRACE) Urine Glucose (UA) Negative mg/dL (NEG) Urine Ketones (Stick) Trace mg/dL (NEG) Urine Blood Large (NEG) Urine Nitrite Positive (NEG) Urine Bilirubin Negative (NEG) Urine Urobilinogen Dipstick 0.2 mg/dL (0.2 mg/dL) Urine Leukocyte Esterase Large (NEG) Urine RBC /HPF (0-2) Urine WBC Tntc /HPF (0-4) Urine Bacteria Many /HPF (0-FEW) Thyroid Stimulating Hormone (TSH) 1.031 uIU/mL (0.358-3.74) Laboratory Tests Test 01/20/19 11:25 01/21/19 04:35 Troponin I Quantitative < 0.017 ng/mL (0.000-0.055) Thyroid Stimulating Hormone (TSH) 1.031 uIU/mL (0.358-3.74) White Blood Count 5.6 x10^3/uL (4.0-11.0) Red Blood Count 2.73 x10^6/uL (3.50-5.40) Hemoglobin 9.2 g/dL (12.0-15.5) Hematocrit 27.1 % (36.0-47.0) Mean Corpuscular Volume 99 fL (79-100) Mean Corpuscular Hemoglobin 34 pg (25-35) Mean Corpuscular Hemoglobin Concent 34 g/dL (31-37) Red Cell Distribution Width 12.2 % (11.5-14.5) Platelet Count 178 x10^3/uL (140-400) Neutrophils (%) (Auto) 51 % (31-73) Lymphocytes (%) (Auto) 32 % (24-48) Monocytes (%) (Auto) 12 % (0-9) Eosinophils (%) (Auto) 5 % (0-3) Basophils (%) (Auto) 1 % (0-3) Neutrophils # (Auto) 2.9 x10^3uL (1.8-7.7) Lymphocytes # (Auto) 1.8 x10^3/uL (1.0-4.8) Monocytes # (Auto) 0.7 x10^3/uL (0.0-1.1) Eosinophils # (Auto) 0.3 x10^3/uL (0.0-0.7) Basophils # (Auto) 0.0 x10^3/uL (0.0-0.2) Sodium Level 142 mmol/L (136-145) Potassium Level 3.7 mmol/L (3.5-5.1) Chloride Level 108 mmol/L (98-107) Carbon Dioxide Level 25 mmol/L (21-32) Anion Gap 9 (6-14) Blood Urea Nitrogen 15 mg/dL (7-20) Creatinine 1.0 mg/dL (0.6-1.0) Estimated GFR (Cockcroft-Gault) 52.2 BUN/Creatinine Ratio 15 (6-20) Glucose Level 103 mg/dL (70-99) Calcium Level 7.9 mg/dL (8.5-10.1) Total Bilirubin 0.4 mg/dL (0.2-1.0) Aspartate Amino Transf (AST/SGOT) 15 U/L (15-37) Alanine Aminotransferase (ALT/SGPT) 13 U/L (14-59) Alkaline Phosphatase 98 U/L (46-116) Total Protein 5.7 g/dL (6.4-8.2) Albumin 2.6 g/dL (3.4-5.0) Albumin/Globulin Ratio 0.8 (1.0-1.7) Medications Current Medications Ceftriaxone Sodium (Rocephin) 1 gm 1X ONCE IVP Last administered on 01/19/19at 16:27; Start 01/19/19 at 16:15; Stop 01/19/19 at 16:16; Status DC Sodium Chloride 1,000 ml @ 125 mls/hr Q8H IV Last administered on 01/20/19at 16 :35; Start 01/19/19 at 16:29; Stop 01/20/19 at 16:28; Status DC Ondansetron HCl (Zofran) 4 mg PRN Q4HRS PRN IV NAUSEA/VOMITING; Start 01/19/19 at 17:00 Zolpidem Tartrate (Ambien) 5 mg PRN QHS PRN PO INSOMNIA; Start 01/19/19 at 17: 00 Acetaminophen (Tylenol) 650 mg PRN Q4HRS PRN PO TEMP OVER 100.4F OR MILD PAIN Last administered on 01/20/19at 21:19; Start 01/19/19 at 17:00 Diphenhydramine HCl (Benadryl) 25 mg PRN Q4HRS PRN IVP ITCHING; Start 01/19/19 at 17:00 Docusate Sodium (Colace) 100 mg PRN BID PRN PO CONSTIPATION; Start 01/19/19 at 17:00 Albuterol Sulfate (Ventolin Neb Soln) 2.5 mg PRN Q4HRS PRN NEB SHORTNESS OF BREATH; Start 01/19/19 at 17:00 Albuterol/ Ipratropium (Duoneb) 3 ml Q4HRS NEB Last administered on 01/19/19at 18:22; Start 01/19/19 at 20:00; Stop 01/20/19 at 12:42; Status DC Guaifenesin (Robitussin) 200 mg PRN Q4HRS PRN PO COUGH; Start 01/19/19 at 17:00 Lorazepam (Ativan) 2 mg PRN Q4HRS PRN IV ANXIETY / AGITATION; Start 01/19/19 at 17:00; Stop 01/20/19 at 10:53; Status DC Lactobacillus Rhamnosus (Culturelle) 1 cap BID PO Last administered on at 09:11; Start 01/19/19 at 21:00 Metoprolol Succinate (Toprol Xl) 50 mg DAILY PO Last administered on 01/21/19at 09:12; Start 01/20/19 at 09:00 Tramadol HCl (Ultram) 50 mg PRN Q6HRS PRN PO MODERATE TO SEVERE PAIN; Start 07/30 at 17:00 Amlodipine Besylate (Norvasc) 5 mg DAILY PO Last administered on 01/21/19at 09: 12; Start 01/20/19 at 09:00 Non-Formulary Medication (Mirabegron (Myrbetriq)) 50 mg DAILY08 PO ; Start 01/20 at 08:00; Status UNV Pantoprazole Sodium (Protonix) 40 mg DAILYAC PO Last administered on 01/21/19at 09:11; Start 01/20/19 at 07:30 Albuterol/ Ipratropium (Duoneb) 3 ml STK-MED ONCE .ROUTE ; Start 01/19/19 at 18: 19; Stop 01/19/19 at 18:20; Status DC Lisinopril (Prinivil) 20 mg DAILY PO Last administered on 01/21/19at 09:12; Start 01/20/19 at 09:00 Ceftriaxone Sodium (Rocephin) 1 gm Q24H IVP Last administered on 01/20/19at 16: 35; Start 01/20/19 at 16:00 Albuterol/ Ipratropium (Duoneb) 3 ml PRN Q4HRS PRN NEB SHORTNESS OF BREATH; Start 01/20/19 at 12:45 Active Scripts Active Tramadol Hcl 50 Mg Tablet 50 Mg PO Q6HRS PRN Cefuroxime (Cefuroxime Axetil) 250 Mg Tablet 250 Mg PO BID 5 Days Culturelle (Lactobacillus Rhamnosus Gg) 1 Each Cap.sprink 1 Cap PO BID 5 Days [Pantoprazole] 40 MG Tablet.dr 40 Mg PO DAILYAC 30 Days Reported Amlodipine-Benazepril 5-20 Mg (Amlodipine Besylate/Benazepril) 1 Each Capsule 1 Cap PO DAILY Metoprolol Tartrate 50 Mg Tablet 1 Tab PO DAILY08 Myrbetriq (Mirabegron) 50 Mg Tab.er.24h 50 Mg PO DAILY08 Vitals/I & O Vital Sign - Last 24 Hours 01/20/19 01/20/19 01/20/19 01/20/19 11:00 12:30 12:30 12:30 Temp 97.8 97.8 Pulse 80 81 96 84 Resp 16 B/P (MAP) 121/59 (79) 132/64 (86) 126/71 (89) 138/62 (87) Pulse Ox 92 O2 Delivery Room Air 01/20/19 01/20/19 01/20/19 01/20/19 15:00 19:45 20:00 23:12 Temp 98.0 97.4 97.5 98.0 97.4 97.5 Pulse 79 74 71 Resp 18 20 20 B/P (MAP) 139/63 (88) 128/41 (70) 119/62 (81) Pulse Ox 94 91 93 O2 Delivery Room Air Room Air Room Air Room Air 01/21/19 01/21/19 01/21/19 01/21/19 03:35 07:00 09:12 09:12 Temp 97.9 97.6 97.9 97.6 Pulse 76 94 94 94 Resp 20 20 B/P (MAP) 162/60 (94) 169/49 (89) 169/49 169/49 Pulse Ox 89 92 O2 Delivery Room Air Room Air 01/21/19 09:12 Pulse 94 B/P (MAP) 169/49 Intake and Output 01/20/19 01/20/19 01/21/19 15:00 23:00 07:00 Intake Total 50 ml 0 ml Balance 50 ml 0 ml BARB WALKER MD Jan 21, 2019 10:28
--- NOTE | 2019-01-21 10:38 | NUR ---
SW following pt for anticipated dc needs. Chart reviewed. Pt lives alone at home. PT recommends HH. Kelli gerard [facility] to visit pt to discuss HH.
[2019-01-21] MEDS: METOCLOPRAMIDE HCL 10 MG/2 ML VIAL. IV PRN ×2 (15:34→18:36)
[2019-01-21] MEDS: CEFDINIR 300 MG CAPSULE PO SCH (16:00)
--- NOTE | 2019-01-21 16:01 | NUR ---
SW following. After meeting with Kelli, pt had reported she wants [facility] as she has been on service with them.
[2019-01-21] MEDS ORDERED: POLYETHYLENE GLYCOL 3350 17 GM PACKET. PO PRN (16:30)
--- NOTE | 2019-01-21 16:31 | PDOC2 ---
GI CONSULT Reason For Consult: n/v new onset HPI: HPI: 88 y/o female admitted w/ near syncope and UTI. Today had decreased appetite, then vomited after lunch. We have seen her in the past for vomiting - she had a UTI then too. Had UGI in w/ prominent hiatal hernia and mild reflux. At that time medical therapy was recommended w/ PPI and Ensure. Per RN - pt reported she "does this every couple weeks." Pt tells me "well not every couple weeks but sometimes I just get sick." Takes a pill for her stomach - it's brown and OTC at [facility]. Denies hematemesis, hematochezia, melena, abd pain, diarrhea, constipation, and weight loss. Hasn't stooled in a couple days. From previous consult - probably had an EGD in the past and did recall a normal colonoscopy at some point. No GB, liver, pancreas, or PUD history. PMH: PMH: HTN, HLD, anemia, OA, [place], UTI, GERD, hiatal hernia, hysterectomy, left foot surgery FH: Family History: No pertinent hx Social History: Smoke: No ALCOHOL: none Drugs: None ROS: GEN: Denies fevers, chills, sweats HEENT: Denies blurred vision, sore throat CV: Denies chest pain RESP: Denies shortness of air, cough GI: Per HPI : Denies hematuria, dysuria ENDO: Denies weight changes NEURO: Denies confusion, dizziness MSK: +weakness SKIN: Denies jaundice, pruritus Vitals: Vitals: Vital Signs Date Time Temp Pulse Resp B/P (MAP) Pulse Ox O2 Delivery O2 Flow Rate FiO2 01/21/19 15:37 77 119/59 (79) 95 Nasal Cannula 2.0 01/21/19 15:00 97.4 16 97.4 Labs: Labs: Laboratory Tests Test 01/21/19 04:35 White Blood Count 5.6 x10^3/uL (4.0-11.0) Red Blood Count 2.73 x10^6/uL (3.50-5.40) Hemoglobin 9.2 g/dL (12.0-15.5) Hematocrit 27.1 % (36.0-47.0) Mean Corpuscular Volume 99 fL (79-100) Mean Corpuscular Hemoglobin 34 pg (25-35) Mean Corpuscular Hemoglobin Concent 34 g/dL (31-37) Red Cell Distribution Width 12.2 % (11.5-14.5) Platelet Count 178 x10^3/uL (140-400) Neutrophils (%) (Auto) 51 % (31-73) Lymphocytes (%) (Auto) 32 % (24-48) Monocytes (%) (Auto) 12 % (0-9) Eosinophils (%) (Auto) 5 % (0-3) Basophils (%) (Auto) 1 % (0-3) Neutrophils # (Auto) 2.9 x10^3uL (1.8-7.7) Lymphocytes # (Auto) 1.8 x10^3/uL (1.0-4.8) Monocytes # (Auto) 0.7 x10^3/uL (0.0-1.1) Eosinophils # (Auto) 0.3 x10^3/uL (0.0-0.7) Basophils # (Auto) 0.0 x10^3/uL (0.0-0.2) Sodium Level 142 mmol/L (136-145) Potassium Level 3.7 mmol/L (3.5-5.1) Chloride Level 108 mmol/L (98-107) Carbon Dioxide Level 25 mmol/L (21-32) Anion Gap 9 (6-14) Blood Urea Nitrogen 15 mg/dL (7-20) Creatinine 1.0 mg/dL (0.6-1.0) Estimated GFR (Cockcroft-Gault) 52.2 BUN/Creatinine Ratio 15 (6-20) Glucose Level 103 mg/dL (70-99) Calcium Level 7.9 mg/dL (8.5-10.1) Total Bilirubin 0.4 mg/dL (0.2-1.0) Aspartate Amino Transf (AST/SGOT) 15 U/L (15-37) Alanine Aminotransferase (ALT/SGPT) 13 U/L (14-59) Alkaline Phosphatase 98 U/L (46-116) Total Protein 5.7 g/dL (6.4-8.2) Albumin 2.6 g/dL (3.4-5.0) Albumin/Globulin Ratio 0.8 (1.0-1.7) Allergies: Coded Allergies: Yeast (Verified Allergy, Intermediate, 09/21/18) able to eat bread Medications: Current Medications Medications (Trade) Dose Ordered Sig/Martin Route PRN Reason Start Time Stop Time Status Last Admin Dose Admin Metoclopramide HCl (Reglan Vial) 5 mg PRN Q6HRS PRN IV NAUSEA/VOMITING, 2nd choice 01/21/19 15:15 01/21/19 15:34 Imaging: Imaging: Head CT IMPRESSION: No acute intracranial hemorrhage. Mild generalized cerebral and cerebellar volume loss. Low-attenuation in the periventricular white matter is suggestive of chronic small vessel ischemic changes. There is moderate opacification left maxillary sinus containing high attenuation material which may be seen with fungal colonization or inspissated mucus. CXR IMPRESSION: 1. Elevated right hemidiaphragm with bowel loops under the right hemidiaphragm again identified. Probable volume loss right lower lobe of the lung. 2. Diffuse prominent appearing bilateral interstitial lung markings likely chronic interstitial changes or edema. Carotid Doppler Impression: 1. No evidence of hemodynamically significant stenosis. Echo <Conclusion> The left ventricle is normal size. The left ventricular systolic function is normal and the ejection fraction is within normal range. The Ejection Fraction is 55-60%. There is no significant aortic valvular stenosis. Doppler and Color Flow revealed mild to moderate aortic regurgitation. Doppler and Color-flow revealed mild to moderate eccentric mitral regurgitation. Doppler and Color Flow revealed mild tricuspid regurgitation. There is moderate pulmonary hypertension. The PA pressure was estimated at 48 mmHg. KUB pending PE: GEN: NAD - holding emesis basin - looks like some chunks of fruit HEENT: Atraumatic, PERRL LUNGS: CTAB HEART: RRR ABD: NABS, S/ND/NT EXTREMITY: No edema SKIN: No rashes, no jaundice NEURO/PSYCH: A & O 3 A/P: A/P: Near syncope, UTI Recurrent vomiting Hiatal hernia, GERD Chronic normocytic anemia - Hgb a bit lower than baseline, no obvious bleeding CRC screen - reports a normal colonoscopy in the past -- KUB pending - await results but seems reasonable to back off on diet for now. RN in process of replacing IV - has anti-emetics ordered. Will change to IV PPI. Anemia parameters for completeness. JUAN CARLOS KUHN Jan 21, 2019 16:31
--- NOTE | 2019-01-21 16:55 | PDOC ---
PROGRESS NOTES Assessment Assessment Near syncope. UTI. HTN. HLD. Cognitive impairment. RECOMMENDATIONS/PLAN: Treat UTI. Treat medical diseases. Consulted Cardiology. EEG as outpatient. Carotid A US + Doppler: No hemodynamically stenosis. HCT: negative. HISTORY OF PRESENT ILLNESS This is an 88-y-old female patient admitted due to a near syncopal spell. She went to urgent care on 01/19/19 because she had symptoms of urinary frequency noted UTI. She went to [facility] after that to pick her prescription and felt tired standing while waiting for her Rx she almost fell and was probably caught by people standing next to her as she just remembered sitting when she regained consciousness. No focalized sensory or motor deficits. She stated she felt fine. PAST MEDICAL HISTORY Cardiovascular: HTN, Hyperlipidemia Pulmonary: No pertinent hx CENTRAL NERVOUS SYSTEM: Other (No pertinent history) GI: GERD, Other (large hiatal hernia) Heme/Onc: Anemia NOS Hepatobiliary: No pertinent hx Psych: No pertinent hx Musculoskeletal: Osteoarthritis Rheumatologic: No pertinent hx Infectious disease: No pertinent hx ENT: Other ([facility]) Renal/: UTI, Urinary Incontinence Endocrine: No pertinent hx Dermatology: No pertinent hx PAST SURGICAL HISTORY Hysterectomy, left foot surgery. FAMILY HISTORY Noncontributory to age ALLERGIES Yeast (Verified Allergy, Intermediate, 09/21/18), able to eat bread MEDICATIONS: Refer to [facility] SOCIAL HISTORY: Lives at home. Denies current smoking, drinking, and illicit drug use. REVIEW OF SYSTEMS: Constitutional: No malnutrition, weight loss, cachexia. Head: No traumatic brain or head injury. Skin: No edema, or rash. Ear: No infection. Eyes: No vision loss or color blindness. Nose: No bleeding or purulent discharges. Hearing: No hearing decrease. Neck: No injury. Breast: No history of cancer, masses,or discharges. Cardiac: HTN, HLD. Pulmonary: No COPD. GI: No GI ulcer, GI bleeding. Urinary/genital: UTI. Endocrinologic: No cousin face, craniofacial dysmorphism, polydactyly. Skeletomuscular: Generalized weakness. Neurological: see HP. Psychiatric: Denies drug use/abuse. Otherwise, not [id number] review of systems. PHYSICAL EXAMINATION: General appearance is in no acute distress. HEENT: Normocephalic and nontraumatic. Eyes, nose, ears, and throat are unremarkable. Neck is supple. No lymphadenopathy. No bruits are heard over the carotid artery. No crepitus. Cardiovascular: S1, S2, regular rate and rhythm. Pulmonary: Clear to auscultation bilaterally. Abdomen: Bowel sounds are positive. Abdomen is soft, nontender, and nondistended. Extremities: No rash, lesions, or edema. No restriction of range of motion NEUROLOGICAL EXAMINATION: Awake. Oriented to time, place and person. PERRL. EOMI. CN: no focal findings. Muscle tone: within normal. Muscle strength: 5- DTR: 2- Plantar reflex: Neutral response bilaterally Gait: not examined in bed. Sensory exam: no abnormal findings. No cerebellar signs elicited. F-T-N test fine. Objective Objective Vital Signs Date Time Temp Pulse Resp B/P (MAP) Pulse Ox O2 Delivery O2 Flow Rate FiO2 01/21/19 15:37 77 119/59 (79) 95 Nasal Cannula 2.0 01/21/19 15:00 97.4 16 97.4 Intake and Output 01/21/19 07:00 Intake Total 50 ml Balance 50 ml Intake Oral 50 ml # Voids 8 Vitals Signs Vitals VS - Last 72 Hours, by Label Date Time Temp Pulse Resp B/P (MAP) Pulse Ox O2 Delivery O2 Flow Rate FiO2 01/21/19 15:37 77 119/59 (79) 95 Nasal Cannula 2.0 01/21/19 15:37 90 122/66 (84) 96 Nasal Cannula 2.0 01/21/19 15:00 97.4 81 16 116/59 (78) 90 Nasal Cannula 2.0 97.4 01/21/19 11:00 97.6 83 20 129/52 (77) 96 Room Air 97.6 01/21/19 09:12 94 169/49 01/21/19 09:12 94 169/49 01/21/19 09:12 94 169/49 01/21/19 08:00 Room Air 01/21/19 07:00 97.6 94 20 169/49 (89) 92 Room Air 97.6 01/21/19 03:35 97.9 76 20 162/60 (94) 89 Room Air 97.9 01/20/19 23:12 97.5 71 20 119/62 (81) 93 Room Air 97.5 01/20/19 20:00 Room Air 01/20/19 19:45 97.4 74 20 128/41 (70) 91 Room Air 97.4 01/20/19 15:00 98.0 79 18 139/63 (88) 94 Room Air 98.0 01/20/19 12:30 84 138/62 (87) 01/20/19 12:30 96 126/71 (89) 01/20/19 12:30 81 132/64 (86) 01/20/19 11:00 97.8 80 16 121/59 (79) 92 Room Air 97.8 01/20/19 09:24 97 124/64 01/20/19 09:24 97 124/64 01/20/19 09:23 97 124/64 01/20/19 08:00 Room Air 01/20/19 07:00 98.0 97 18 124/64 (84) 94 Room Air 98.0 01/20/19 07:00 98.0 97 124/64 (84) 94 Room Air 98.0 Laboratory Laboratory Laboratory Tests Test 01/21/19 04:35 White Blood Count 5.6 x10^3/uL (4.0-11.0) Red Blood Count 2.73 x10^6/uL (3.50-5.40) Hemoglobin 9.2 g/dL (12.0-15.5) Hematocrit 27.1 % (36.0-47.0) Mean Corpuscular Volume 99 fL (79-100) Mean Corpuscular Hemoglobin 34 pg (25-35) Mean Corpuscular Hemoglobin Concent 34 g/dL (31-37) Red Cell Distribution Width 12.2 % (11.5-14.5) Platelet Count 178 x10^3/uL (140-400) Neutrophils (%) (Auto) 51 % (31-73) Lymphocytes (%) (Auto) 32 % (24-48) Monocytes (%) (Auto) 12 % (0-9) Eosinophils (%) (Auto) 5 % (0-3) Basophils (%) (Auto) 1 % (0-3) Neutrophils # (Auto) 2.9 x10^3uL (1.8-7.7) Lymphocytes # (Auto) 1.8 x10^3/uL (1.0-4.8) Monocytes # (Auto) 0.7 x10^3/uL (0.0-1.1) Eosinophils # (Auto) 0.3 x10^3/uL (0.0-0.7) Basophils # (Auto) 0.0 x10^3/uL (0.0-0.2) Reticulocyte Count (auto) 0.9 % (0.5-2.5) Sodium Level 142 mmol/L (136-145) Potassium Level 3.7 mmol/L (3.5-5.1) Chloride Level 108 mmol/L (98-107) Carbon Dioxide Level 25 mmol/L (21-32) Anion Gap 9 (6-14) Blood Urea Nitrogen 15 mg/dL (7-20) Creatinine 1.0 mg/dL (0.6-1.0) Estimated GFR (Cockcroft-Gault) 52.2 BUN/Creatinine Ratio 15 (6-20) Glucose Level 103 mg/dL (70-99) Calcium Level 7.9 mg/dL (8.5-10.1) Total Bilirubin 0.4 mg/dL (0.2-1.0) Aspartate Amino Transf (AST/SGOT) 15 U/L (15-37) Alanine Aminotransferase (ALT/SGPT) 13 U/L (14-59) Alkaline Phosphatase 98 U/L (46-116) Total Protein 5.7 g/dL (6.4-8.2) Albumin 2.6 g/dL (3.4-5.0) Albumin/Globulin Ratio 0.8 (1.0-1.7) Medication Medications Current Medications Cefdinir (Omnicef) 300 mg BID PO ; Start 01/21/19 at 16:00 Metoclopramide HCl (Reglan Vial) 5 mg PRN Q6HRS PRN IV NAUSEA/VOMITING, 2nd choice Last administered on 01/21/19at 15:34; Start 01/21/19 at 15:15 Pantoprazole Sodium (PROTONIX VIAL for IV PUSH) 40 mg DAILYAC IVP ; Start at 07:30 Polyethylene Glycol (miraLAX PACKET) 17 gm DAILY PO ; Start 01/22/19 at 09:00 Polyethylene Glycol (miraLAX PACKET) 17 gm PRN DAILY PRN PO CONSTIPATION; Start 01/21/19 at 16:30 Comment Review of Relevant I have reviewed the following items baudilio (where applicable) has been applied. ANTOINETTE COLLINS MD Jan 21, 2019 16:55
[2019-01-22 03:30] VITALS: BP 137/57
[2019-01-22 07:00] VITALS: BP 140/58
[2019-01-22] MEDS: NON FORMULARY ITEM (Mirabegron (Myrbetriq) 50 MG) PO SCH (08:00)
[2019-01-22] MEDS: LACTOBACILLUS RHAMNOSUS GG 1 CAPSULE. PO SCH ×2 (09:00→20:10)
[2019-01-22] MEDS: CEFDINIR 300 MG CAPSULE PO SCH ×2 (09:00→20:09)
[2019-01-22] MEDS: amLODIPine BESYLATE 5 MG TABLET PO SCH (09:00)
[2019-01-22] MEDS: POLYETHYLENE GLYCOL 3350 17 GM PACKET. PO SCH ×2 (09:00→12:25)
[2019-01-22] MEDS: LISINOPRIL 20 MG TABLET PO SCH (09:01)
[2019-01-22] MEDS: PANTOPRAZOLE IV PUSH 40 MG VIAL. IVP SCH (09:01)
[2019-01-22] MEDS: METOPROLOL SUCC 24HR ER 50 MG TAB.ER.24H. PO SCH (09:02)
--- NOTE | 2019-01-22 09:04 | RAD ---
Upright abdomen. HISTORY: Nausea and vomiting Upright view was taken of the abdomen. There is a large hiatus hernia mainly to the right in the chest. There is thoracolumbar scoliosis. There is increased stool in the colon possibly a fecal impaction. There is no small bowel obstruction. There are no abnormal air-fluid levels. There is no free air. IMPRESSION: 1. Increased stool in the colon and rectum. 2. Large hiatus hernia. 3. No bowel obstruction noted. Electronically signed by: Erasmo Elizabeth MD (01/22/2019 9:02 AM) [facility]
--- NOTE | 2019-01-22 09:44 | PDOC ---
PROGRESS NOTES Chief Complaint Chief Complaint as at [facility] picking up prescriptions for somebody else when she gets "tired of standing". She does not remember falling to the ground and she apparently had a syncopal episode she woke up quite quickly there was no seizure-like activity reported. The patient denies having had urinary or bowel incontinence History of Present Illness History of Present Illness VTE Prophylaxis Ordered VTE Prophylaxis Devices: No VTE Pharmacological Prophylaxi: Yes Assessment/Plan Syncopal episode, cardiac etiology, vs neurological event , SUSPECT ORTHOSTASIS History of hypertension CKD stage 3a Asymptomatic bacteriuria UTI HYPOXIA POA, WITH SLEEP GERD Diffuse prominent appearing bilateral interstitial lung markings likely chronic interstitial changes or edema. OBSTIPATION, PERSISTENT GERD POOR ACTIVITY TOLERANCE 01/21 HAD EPISODE OF EMESIS WITH LUNCH 01/22, VERY CONSTIPATED ON KUB Plan: CXR rocvephin IV Q 24 HRS continue resume home meds check orthostatics dvt prophylaxis: heparin Pt eval further recommendations based on clinical course. NEUROLOGY CONSULT TELE NEUROCHECKS Q 4 HRS DOPPLER CAROTIDS ECHO EEG OUTPT ANS MAHAJAN NOW NEEDS HOME HEALTH 38 min pt exam, chart review, > 50% of time spent with exam, chart review, pt care coordination Vitals Vitals Vital Signs Date Time Temp Pulse Resp B/P (MAP) Pulse Ox O2 Delivery O2 Flow Rate FiO2 01/22/19 09:02 80 140/58 01/22/19 07:00 97.6 16 91 Room Air 97.6 01/21/19 15:37 2.0 Physical Exam Physical Exam Head: Normal shape atraumatic Eyes: Pupils equal reactive to light and accommodation, normal conjunctivae and lids Ears: Normal shape Nose: Normal shape no trauma Mouth: No exudates of the back of throat no thrush no lesions Neck: Supple no JVD no carotid bruit or lymphadenopathy no thyromegaly Chest: Lungs clear to auscultation with good inspiratory effort no crackles rales or rhonchi Cardiovascular: S1-S2 regular rhythm no murmurs gallops or rubs Abdomen: Bowel sounds present soft nontender no hepatosplenomegaly appreciated sign Extremities: No clubbing no cyanosis no edema peripheral pulses palpated bilaterally Neurological: Alert awake oriented in person time place and situation, cranial nerves II through XII intact, General: Alert, Oriented X3, Cooperative, No acute distress Heart: Regular rate (SR), Normal S1, Normal S2, Other (2/6 systolic murmur to LLS border) Lungs: Clear Abdomen: Soft, No tenderness Extremities: No cyanosis, No edema Skin: No breakdown, No significant lesion Labs LABS SEX: F EXAM STATUS: ADM IN ORD. PHYSICIAN: BARB WALKER MD REASON: upright KUB for new nausea, vomiting PROCEDURE: KUB Upright abdomen. HISTORY: Nausea and vomiting Upright view was taken of the abdomen. There is a large hiatus hernia mainly to the right in the chest. There is thoracolumbar scoliosis. There is increased stool in the colon possibly a fecal impaction. There is no small bowel obstruction. There are no abnormal air-fluid levels. There is no free air. IMPRESSION: 1. Increased stool in the colon and rectum. 2. Large hiatus hernia. 3. No bowel obstruction noted. Electronically signed by: Erasmo Elizabeth MD (01/22/2019 9:02 AM) [facility] Assessment and Plan Assessmemt and Plan Problems Medical Problems: (1) Anemia Status: Acute (2) Chronic renal insufficiency Status: Acute (3) Syncope Status: Acute * Yes Patient condition at conclusion of therapy * Pt in chair * Call light in reach * Phone in reach * Pt denies further needs Communicated Patient Care With (Name, Title) * MATTHEW Yu Goal 1 - Bed Mobility Assistance Required * Independent Goal 1 Assessment * Goal Met Goal 2 - Transfers Assistance Required * Independent Goal 2 - Transfer Type * Sit to Stand Goal 2 Assessment * Appropriate - Continue Goal 3 - Ambulation Assistance Required * Independent Goal 3 - Ambulation Distance * 250' Goal 3 - Ambulation Device * Roller Walker Goal 3 Assessment * Appropriate - Continue Goal 4 - Stairs Assistance Required * Independent Goal 4 - Number of Stairs * 2-4 Goal 4 - Device on Stairs * Rail on Right Goal 4 Assessment * Appropriate - Continue Treatment Plan * Therapeutic Exercise * Gait Training * Dynamic Balance Training Frequency of Treatment Expected * 6 visits/week Duration of Treatment Expected * 1 week Discharge Recommendations * Home with Assistance * Home with Home Health * Cooperative Safety/Judgement * Decreased Safety * Due to Medical Status * Due to Strength/ROM Defic Communication * WFL Vision/Perception * Baseline Sensation * Baseline Tone * Normal Coordination * Baseline Activity Tolerance * Fair + Activity Tolerance/ Vitals * no signs or symptoms of distress Range of Motion * WFL BUE Strength * WFL BUE Sitting Balance * 5 moves >2" all planes Standing Balance * 2+ balances w/one UE Pain Comments * no pain reported Socks/Shoes Dressing * Stand-by Assist * Seated Socks/Shoes Dressing Comments * adjusting socks Chair Transfer * Verbal cues * Stand-by assist * Tactile cues Functional Mobility * Verbal cues * Stand-by assist * Tactile cues Ambulation Assistive Device * Roller Walker Ambulation Distance * 250 ft, no LOB Functional Limitations ADLs Comments * pt limited by decreased mobility, balance, and strength pt scored 70/100 on the Leslie Index Patient Stated Goal * Pt's goal to return home Rehab Potential to Achieve Goals * Good Learning Preferences * One-on-One Instruction Factors Facilitating Goal Achievement * Supportive caregiver * Prior level of function Problem List * Activity Tolerance * Balance * Functional Mobility * Strength * ADL Status * IADL Status * Safety awareness Pt/caregiver agree with plan of care * Yes Patient condition at conclusion of therapy * Pt in chair * Call light in reach * Phone in reach * PtIn no apparent distress * Pt denies further needs Communicated Patient Care With (Name, Title) * Ramona RN, Kenyatta, PT Goal 1: Pt will tolerate functional activities for * 20min Goal 1 Position: * Seated * Standing Goal 2: Pt will be able to complete: * grooming at sink Goal 2 Required Assistance Level * Independent * Standing Goal 3: Pt will be able to complete: * toilet transfer Goal 3 Equipment * Raised Toilet/Commode Goal 3 Required Assistance Level * Independent Goal 4 - Pt will be able to complete: * LE dressing Goal 4 Required Assistance Level * Independent * Seated * Standing Goal 5 - Pt. will be able to complete: * item retrieval with good safety Goal 5 Required Assistance Level * Independent * Standing Skilled interventions required to achieve goals * Activity asmita. training * ADL training/education * Adaptive equip. training * Balance training for ADL * Compensatory techniques * Energy conservation * Functional mobility train * IADL Training * Safety education * Therapeutic Ex. * Transfer training for ADL Number of Days/Weeks for length of Stay, or Until Goals Met * 6 treatments in 7 days in 2 weeks Discharge Recommendations * Home with Assistance * Home with Home Health Comment Review of Relevant I have reviewed the following items baudilio (where applicable) has been applied. Labs Laboratory Tests Test 01/20/19 11:25 01/21/19 04:35 Troponin I Quantitative < 0.017 ng/mL (0.000-0.055) Thyroid Stimulating Hormone (TSH) 1.031 uIU/mL (0.358-3.74) White Blood Count 5.6 x10^3/uL (4.0-11.0) Red Blood Count 2.73 x10^6/uL (3.50-5.40) Hemoglobin 9.2 g/dL (12.0-15.5) Hematocrit 27.1 % (36.0-47.0) Mean Corpuscular Volume 99 fL (79-100) Mean Corpuscular Hemoglobin 34 pg (25-35) Mean Corpuscular Hemoglobin Concent 34 g/dL (31-37) Red Cell Distribution Width 12.2 % (11.5-14.5) Platelet Count 178 x10^3/uL (140-400) Neutrophils (%) (Auto) 51 % (31-73) Lymphocytes (%) (Auto) 32 % (24-48) Monocytes (%) (Auto) 12 % (0-9) Eosinophils (%) (Auto) 5 % (0-3) Basophils (%) (Auto) 1 % (0-3) Neutrophils # (Auto) 2.9 x10^3uL (1.8-7.7) Lymphocytes # (Auto) 1.8 x10^3/uL (1.0-4.8) Monocytes # (Auto) 0.7 x10^3/uL (0.0-1.1) Eosinophils # (Auto) 0.3 x10^3/uL (0.0-0.7) Basophils # (Auto) 0.0 x10^3/uL (0.0-0.2) Reticulocyte Count (auto) 0.9 % (0.5-2.5) Sodium Level 142 mmol/L (136-145) Potassium Level 3.7 mmol/L (3.5-5.1) Chloride Level 108 mmol/L (98-107) Carbon Dioxide Level 25 mmol/L (21-32) Anion Gap 9 (6-14) Blood Urea Nitrogen 15 mg/dL (7-20) Creatinine 1.0 mg/dL (0.6-1.0) Estimated GFR (Cockcroft-Gault) 52.2 BUN/Creatinine Ratio 15 (6-20) Glucose Level 103 mg/dL (70-99) Calcium Level 7.9 mg/dL (8.5-10.1) Iron Level 62 ug/dL (50-170) Total Iron Binding Capacity 203 ug/dL (250-450) Iron Saturation 31 % (15-34) Total Bilirubin 0.4 mg/dL (0.2-1.0) Aspartate Amino Transf (AST/SGOT) 15 U/L (15-37) Alanine Aminotransferase (ALT/SGPT) 13 U/L (14-59) Alkaline Phosphatase 98 U/L (46-116) Total Protein 5.7 g/dL (6.4-8.2) Albumin 2.6 g/dL (3.4-5.0) Albumin/Globulin Ratio 0.8 (1.0-1.7) Vitamin B12 Level 993 pg/mL (247-911) Medications Current Medications Ceftriaxone Sodium (Rocephin) 1 gm 1X ONCE IVP Last administered on 01/19/19at 16:27; Start 01/19/19 at 16:15; Stop 01/19/19 at 16:16; Status DC Sodium Chloride 1,000 ml @ 125 mls/hr Q8H IV Last administered on 01/20/19at 16 :35; Start 01/19/19 at 16:29; Stop 01/20/19 at 16:28; Status DC Ondansetron HCl (Zofran) 4 mg PRN Q4HRS PRN IV NAUSEA/VOMITING, 1ST CHOICE Last administered on 01/21/19at 12:54; Start 01/19/19 at 17:00 Zolpidem Tartrate (Ambien) 5 mg PRN QHS PRN PO INSOMNIA Last administered on 21:43; Start 01/19/19 at 17:00 Acetaminophen (Tylenol) 650 mg PRN Q4HRS PRN PO TEMP OVER 100.4F OR MILD PAIN Last administered on 01/20/19at 21:19; Start 01/19/19 at 17:00 Diphenhydramine HCl (Benadryl) 25 mg PRN Q4HRS PRN IVP ITCHING; Start 01/19/19 at 17:00 Docusate Sodium (Colace) 100 mg PRN BID PRN PO CONSTIPATION; Start 01/19/19 at 17:00 Albuterol Sulfate (Ventolin Neb Soln) 2.5 mg PRN Q4HRS PRN NEB SHORTNESS OF BREATH; Start 01/19/19 at 17:00 Albuterol/ Ipratropium (Duoneb) 3 ml Q4HRS NEB Last administered on 01/19/19at 18:22; Start 01/19/19 at 20:00; Stop 01/20/19 at 12:42; Status DC Guaifenesin (Robitussin) 200 mg PRN Q4HRS PRN PO COUGH; Start 01/19/19 at 17:00 Lorazepam (Ativan) 2 mg PRN Q4HRS PRN IV ANXIETY / AGITATION; Start 01/19/19 at 17:00; Stop 01/20/19 at 10:53; Status DC Lactobacillus Rhamnosus (Culturelle) 1 cap BID PO Last administered on at 09:00; Start 01/19/19 at 21:00 Metoprolol Succinate (Toprol Xl) 50 mg DAILY PO Last administered on 01/22/19at 09:02; Start 01/20/19 at 09:00 Tramadol HCl (Ultram) 50 mg PRN Q6HRS PRN PO MODERATE TO SEVERE PAIN; Start 07/30 at 17:00 Amlodipine Besylate (Norvasc) 5 mg DAILY PO Last administered on 01/22/19at 09: 00; Start 01/20/19 at 09:00 Non-Formulary Medication (Mirabegron (Myrbetriq)) 50 mg DAILY08 PO ; Start 01/20 at 08:00; Status UNV Pantoprazole Sodium (Protonix) 40 mg DAILYAC PO Last administered on 01/21/19at 09:11; Start 01/20/19 at 07:30; Stop 01/21/19 at 16:25; Status DC Albuterol/ Ipratropium (Duoneb) 3 ml STK-MED ONCE .ROUTE ; Start 01/19/19 at 18: 19; Stop 01/19/19 at 18:20; Status DC Lisinopril (Prinivil) 20 mg DAILY PO Last administered on 01/22/19at 09:01; Start 01/20/19 at 09:00 Ceftriaxone Sodium (Rocephin) 1 gm Q24H IVP Last administered on 01/20/19at 16: 35; Start 01/20/19 at 16:00; Stop 01/21/19 at 15:28; Status DC Albuterol/ Ipratropium (Duoneb) 3 ml PRN Q4HRS PRN NEB SHORTNESS OF BREATH; Start 01/20/19 at 12:45 Metoclopramide HCl (Reglan Vial) 5 mg PRN Q6HRS PRN IV NAUSEA/VOMITING, 2nd choice Last administered on 01/21/19at 18:36; Start 01/21/19 at 15:15 Cefdinir (Omnicef) 300 mg BID PO Last administered on 01/22/19at 09:00; Start at 16:00 Pantoprazole Sodium (PROTONIX VIAL for IV PUSH) 40 mg DAILYAC IVP Last administered on 01/22/19at 09:01; Start 01/22/19 at 07:30 Polyethylene Glycol (miraLAX PACKET) 17 gm DAILY PO Last administered on at 09:00; Start 01/22/19 at 09:00 Polyethylene Glycol (miraLAX PACKET) 17 gm PRN DAILY PRN PO CONSTIPATION; Start 01/21/19 at 16:30 Active Scripts Active Tramadol Hcl 50 Mg Tablet 50 Mg PO Q6HRS PRN Cefuroxime (Cefuroxime Axetil) 250 Mg Tablet 250 Mg PO BID 5 Days Culturelle (Lactobacillus Rhamnosus Gg) 1 Each Cap.sprink 1 Cap PO BID 5 Days [Pantoprazole] 40 MG Tablet.dr 40 Mg PO DAILYAC 30 Days Reported Amlodipine-Benazepril 5-20 Mg (Amlodipine Besylate/Benazepril) 1 Each Capsule 1 Cap PO DAILY Metoprolol Tartrate 50 Mg Tablet 1 Tab PO DAILY08 Myrbetriq (Mirabegron) 50 Mg Tab.er.24h 50 Mg PO DAILY08 Vitals/I & O Vital Sign - Last 24 Hours 01/21/19 01/21/19 01/21/19 01/21/19 11:00 15:00 15:37 15:37 Temp 97.6 97.4 97.6 97.4 Pulse 83 81 90 77 Resp 20 16 B/P (MAP) 129/52 (77) 116/59 (78) 122/66 (84) 119/59 (79) Pulse Ox 96 90 96 95 O2 Delivery Room Air Nasal Cannula Nasal Cannula Nasal Cannula O2 Flow Rate 2.0 2.0 2.0 01/21/19 01/21/19 01/21/19 01/22/19 19:40 20:00 23:35 03:30 Temp 97.3 97.4 97.5 97.3 97.4 97.5 Pulse 82 79 79 Resp 16 16 16 B/P (MAP) 110/41 (64) 112/52 (72) 137/57 (83) Pulse Ox 92 91 90 O2 Delivery Room Air Room Air Room Air Room Air 01/22/19 01/22/19 01/22/19 01/22/19 07:00 09:00 09:01 09:02 Temp 97.6 97.6 Pulse 80 80 80 80 Resp 16 B/P (MAP) 140/58 (85) 140/58 140/58 140/58 Pulse Ox 91 O2 Delivery Room Air Intake and Output 01/21/19 01/21/19 01/22/19 14:59 22:59 06:59 Intake Total 90 ml 100 ml 100 ml Balance 90 ml 100 ml 100 ml BARB WALKER MD Jan 22, 2019 09:44
[2019-01-22 11:00] VITALS: BP 140/51
--- NOTE | 2019-01-22 11:59 | NUR ---
FACULTY CO-SIGN I have reviewed the documentation by Lopez Wright nursing educator, [facility]: Addendum: 01/22/19 at 1159 by VARSHA NGUYEN RN Amended: Links added.
[2019-01-22] MEDS ORDERED: SENNOSIDES/DOCUSATE 8.6/50MG TABLET. PO PRN (12:00)
--- NOTE | 2019-01-22 13:02 | PDOC ---
GI PROGRESS NOTES Date Date/Time DATE: 01/22/19 TIME: 12:58 Subjective Subjective nausea and vomiting- resolved today- tolerating CLD Objective Vitals Vital Signs Date Time Temp Pulse Resp B/P (MAP) Pulse Ox O2 Delivery O2 Flow Rate FiO2 01/22/19 11:00 97.3 86 16 140/51 (80) 95 Room Air 97.3 01/22/19 09:02 80 140/58 01/22/19 09:01 80 140/58 01/22/19 09:00 80 140/58 01/22/19 08:00 Room Air 01/22/19 07:00 97.6 80 16 140/58 (85) 91 Room Air 97.6 01/22/19 03:30 97.5 79 16 137/57 (83) 90 Room Air 97.5 01/21/19 23:35 97.4 79 16 112/52 (72) 91 Room Air 97.4 01/21/19 20:00 Room Air 01/21/19 19:40 97.3 82 16 110/41 (64) 92 Room Air 97.3 01/21/19 15:37 77 119/59 (79) 95 Nasal Cannula 2.0 01/21/19 15:37 90 122/66 (84) 96 Nasal Cannula 2.0 01/21/19 15:00 97.4 81 16 116/59 (78) 90 Nasal Cannula 2.0 97.4 Physical Exam Physical Exam alert EMMONAK chest- clear abd- soft non tender good bowel sounds Assessment Assessment Large hiatal hernia with episode of n/v - now resolved- no abd pain, chest pain or dysphagia reported- which speaks against torsion or compromise of large hiatal hernia- clinically improved- tolerating CLD Plan Plan Try to slowly advance diet as tolerated- patient not interested in surgical options monitor for recurrent vomiting, pain or dysphagia ROBERT JUNE MD Jan 22, 2019 13:02
[2019-01-22 13:16] LABS: BASO % 1 % (0-3); EOS % 0 % (0-3); HEMOGLOBIN 11.5 g/dL (12.0-15.5); LYMPH # 1.5 x10^3/uL (1.0-4.8); LYMPH % 21 % (24-48); MEAN CORPUSCULAR HEMOGLOBIN 33 pg (25-35); MEAN CORPUSCULAR HGB CONC 34 g/dL (31-37); MEAN CORPUSCULAR VOLUME 98 fL (79-100); MONO # 0.5 x10^3/uL (0.0-1.1); MONO % 7 % (0-9); NEUT # 5.1 x10^3uL (1.8-7.7); NEUT % 71 % (31-73); PLATELET COUNT 233 x10^3/uL (140-400); RED BLOOD COUNT 3.46 x10^6/uL (3.50-5.40); RED CELL DISTRIBUTION WIDTH 11.9 % (11.5-14.5); WHITE BLOOD COUNT 7.2 x10^3/uL (4.0-11.0)
[2019-01-22 13:26] LABS: CALCIUM 8.4 mg/dL (8.5-10.1); CREATININE 0.9 mg/dL (0.6-1.0); POTASSIUM 3.8 mmol/L (3.5-5.1)
[2019-01-22 15:00] VITALS: BP 153/61
[2019-01-22 19:45] VITALS: BP 153/67
[2019-01-22] MEDS: traMADol 50 MG TABLET PO PRN (20:10)
[2019-01-22 23:48] VITALS: BP 148/58
[2019-01-23 03:31] VITALS: BP 130/64
[2019-01-23] MEDS: traMADol 50 MG TABLET PO PRN (06:28)
[2019-01-23 07:00] VITALS: BP 158/62
[2019-01-23] MEDS: NON FORMULARY ITEM (Mirabegron (Myrbetriq) 50 MG) PO SCH (08:00)
[2019-01-23] MEDS: LISINOPRIL 20 MG TABLET PO SCH (08:39)
[2019-01-23] MEDS: POLYETHYLENE GLYCOL 3350 17 GM PACKET. PO SCH ×2 (08:39→09:00)
[2019-01-23] MEDS: PANTOPRAZOLE IV PUSH 40 MG VIAL. IVP SCH (08:39)
[2019-01-23] MEDS: CEFDINIR 300 MG CAPSULE PO SCH (08:39)
[2019-01-23] MEDS: METOPROLOL SUCC 24HR ER 50 MG TAB.ER.24H. PO SCH (08:40)
[2019-01-23] MEDS: LACTOBACILLUS RHAMNOSUS GG 1 CAPSULE. PO SCH (08:40)
[2019-01-23] MEDS: amLODIPine BESYLATE 5 MG TABLET PO SCH (08:40)
[2019-01-23 11:00] VITALS: BP 147/57
--- NOTE | 2019-01-23 11:13 | PDOC ---
PROGRESS NOTES Chief Complaint Chief Complaint as at [facility] picking up prescriptions for somebody else when she gets "tired of standing". She does not remember falling to the ground and she apparently had a syncopal episode she woke up quite quickly there was no seizure-like activity reported. The patient denies having had urinary or bowel incontinence History of Present Illness History of Present Illness VTE Prophylaxis Ordered VTE Prophylaxis Devices: No VTE Pharmacological Prophylaxi: Yes Assessment/Plan Syncopal episode, cardiac etiology, vs neurological event , SUSPECT ORTHOSTASIS History of hypertension CKD stage 3a Asymptomatic bacteriuria UTI HYPOXIA POA, WITH SLEEP GERD Diffuse prominent appearing bilateral interstitial lung markings likely chronic interstitial changes or edema. OBSTIPATION, PERSISTENT GERD POOR ACTIVITY TOLERANCE 01/21 HAD EPISODE OF EMESIS WITH LUNCH 01/22, VERY CONSTIPATED ON KUB Plan: CXR rocvephin IV Q 24 HRS D/C, BEGIN OMNICEF 300 MG PO BID resume home meds check orthostatics dvt prophylaxis: heparin Pt eval NEUROLOGY CONSULT REVIEWED TELE NEUROCHECKS Q 4 HRS DOPPLER CAROTIDS ECHO EEG OUTPT [facility] NOW NEEDS HOME HEALTH 34 min pt exam D/C PLANNING , chart review, > 50% of time spent with exam, chart review, pt care coordination Vitals Vitals Vital Signs Date Time Temp Pulse Resp B/P (MAP) Pulse Ox O2 Delivery O2 Flow Rate FiO2 01/23/19 08:40 158/62 01/23/19 08:00 Room Air 01/23/19 07:00 97.2 78 18 92 97.2 Physical Exam Physical Exam Head: Normal shape atraumatic Eyes: Pupils equal reactive to light and accommodation, normal conjunctivae and lids Ears: Normal shape Nose: Normal shape no trauma Mouth: No exudates of the back of throat no thrush no lesions Neck: Supple no JVD no carotid bruit or lymphadenopathy no thyromegaly Chest: Lungs clear to auscultation with good inspiratory effort no crackles rales or rhonchi Cardiovascular: S1-S2 regular rhythm no murmurs gallops or rubs Abdomen: Bowel sounds present soft nontender no hepatosplenomegaly appreciated sign Extremities: No clubbing no cyanosis no edema peripheral pulses palpated bilaterally Neurological: Alert awake oriented in person time place and situation, cranial nerves II through XII intact, General: Alert, Oriented X3, Cooperative, No acute distress Heart: Regular rate (SR), Normal S1, Normal S2, Other (2/6 systolic murmur to LLS border) Lungs: Clear Abdomen: Normal bowel sounds, Soft, No tenderness Extremities: No clubbing, No cyanosis, No edema Skin: No breakdown, No significant lesion Labs LABS Laboratory Tests Test 01/22/19 12:50 White Blood Count 7.2 x10^3/uL (4.0-11.0) Red Blood Count 3.46 x10^6/uL (3.50-5.40) Hemoglobin 11.5 g/dL (12.0-15.5) Hematocrit 34.0 % (36.0-47.0) Mean Corpuscular Volume 98 fL (79-100) Mean Corpuscular Hemoglobin 33 pg (25-35) Mean Corpuscular Hemoglobin Concent 34 g/dL (31-37) Red Cell Distribution Width 11.9 % (11.5-14.5) Platelet Count 233 x10^3/uL (140-400) Neutrophils (%) (Auto) 71 % (31-73) Lymphocytes (%) (Auto) 21 % (24-48) Monocytes (%) (Auto) 7 % (0-9) Eosinophils (%) (Auto) 0 % (0-3) Basophils (%) (Auto) 1 % (0-3) Neutrophils # (Auto) 5.1 x10^3uL (1.8-7.7) Lymphocytes # (Auto) 1.5 x10^3/uL (1.0-4.8) Monocytes # (Auto) 0.5 x10^3/uL (0.0-1.1) Eosinophils # (Auto) 0.0 x10^3/uL (0.0-0.7) Basophils # (Auto) 0.0 x10^3/uL (0.0-0.2) Sodium Level 138 mmol/L (136-145) Potassium Level 3.8 mmol/L (3.5-5.1) Chloride Level 102 mmol/L (98-107) Carbon Dioxide Level 28 mmol/L (21-32) Anion Gap 8 (6-14) Blood Urea Nitrogen 13 mg/dL (7-20) Creatinine 0.9 mg/dL (0.6-1.0) Estimated GFR (Cockcroft-Gault) 59.0 Glucose Level 161 mg/dL (70-99) Calcium Level 8.4 mg/dL (8.5-10.1) Assessment and Plan Assessmemt and Plan Problems Medical Problems: (1) Anemia Status: Acute (2) Chronic renal insufficiency Status: Acute (3) Syncope Status: Acute Comment Review of Relevant I have reviewed the following items baudilio (where applicable) has been applied. Labs Laboratory Tests Test 01/22/19 12:50 White Blood Count 7.2 x10^3/uL (4.0-11.0) Red Blood Count 3.46 x10^6/uL (3.50-5.40) Hemoglobin 11.5 g/dL (12.0-15.5) Hematocrit 34.0 % (36.0-47.0) Mean Corpuscular Volume 98 fL (79-100) Mean Corpuscular Hemoglobin 33 pg (25-35) Mean Corpuscular Hemoglobin Concent 34 g/dL (31-37) Red Cell Distribution Width 11.9 % (11.5-14.5) Platelet Count 233 x10^3/uL (140-400) Neutrophils (%) (Auto) 71 % (31-73) Lymphocytes (%) (Auto) 21 % (24-48) Monocytes (%) (Auto) 7 % (0-9) Eosinophils (%) (Auto) 0 % (0-3) Basophils (%) (Auto) 1 % (0-3) Neutrophils # (Auto) 5.1 x10^3uL (1.8-7.7) Lymphocytes # (Auto) 1.5 x10^3/uL (1.0-4.8) Monocytes # (Auto) 0.5 x10^3/uL (0.0-1.1) Eosinophils # (Auto) 0.0 x10^3/uL (0.0-0.7) Basophils # (Auto) 0.0 x10^3/uL (0.0-0.2) Sodium Level 138 mmol/L (136-145) Potassium Level 3.8 mmol/L (3.5-5.1) Chloride Level 102 mmol/L (98-107) Carbon Dioxide Level 28 mmol/L (21-32) Anion Gap 8 (6-14) Blood Urea Nitrogen 13 mg/dL (7-20) Creatinine 0.9 mg/dL (0.6-1.0) Estimated GFR (Cockcroft-Gault) 59.0 Glucose Level 161 mg/dL (70-99) Calcium Level 8.4 mg/dL (8.5-10.1) Laboratory Tests Test 01/22/19 12:50 White Blood Count 7.2 x10^3/uL (4.0-11.0) Red Blood Count 3.46 x10^6/uL (3.50-5.40) Hemoglobin 11.5 g/dL (12.0-15.5) Hematocrit 34.0 % (36.0-47.0) Mean Corpuscular Volume 98 fL (79-100) Mean Corpuscular Hemoglobin 33 pg (25-35) Mean Corpuscular Hemoglobin Concent 34 g/dL (31-37) Red Cell Distribution Width 11.9 % (11.5-14.5) Platelet Count 233 x10^3/uL (140-400) Neutrophils (%) (Auto) 71 % (31-73) Lymphocytes (%) (Auto) 21 % (24-48) Monocytes (%) (Auto) 7 % (0-9) Eosinophils (%) (Auto) 0 % (0-3) Basophils (%) (Auto) 1 % (0-3) Neutrophils # (Auto) 5.1 x10^3uL (1.8-7.7) Lymphocytes # (Auto) 1.5 x10^3/uL (1.0-4.8) Monocytes # (Auto) 0.5 x10^3/uL (0.0-1.1) Eosinophils # (Auto) 0.0 x10^3/uL (0.0-0.7) Basophils # (Auto) 0.0 x10^3/uL (0.0-0.2) Sodium Level 138 mmol/L (136-145) Potassium Level 3.8 mmol/L (3.5-5.1) Chloride Level 102 mmol/L (98-107) Carbon Dioxide Level 28 mmol/L (21-32) Anion Gap 8 (6-14) Blood Urea Nitrogen 13 mg/dL (7-20) Creatinine 0.9 mg/dL (0.6-1.0) Estimated GFR (Cockcroft-Gault) 59.0 Glucose Level 161 mg/dL (70-99) Calcium Level 8.4 mg/dL (8.5-10.1) Medications Current Medications Ceftriaxone Sodium (Rocephin) 1 gm 1X ONCE IVP Last administered on 01/19/19 16:27; Start 01/19/19 at 16:15; Stop 01/19/19 at 16:16; Status DC Sodium Chloride 1,000 ml @ 125 mls/hr Q8H IV Last administered on 01/20/19at 16 :35; Start 01/19/19 at 16:29; Stop 01/20/19 at 16:28; Status DC Ondansetron HCl (Zofran) 4 mg PRN Q4HRS PRN IV NAUSEA/VOMITING, 1ST CHOICE Last administered on 01/21/19 12:54; Start 01/19/19 at 17:00 Zolpidem Tartrate (Ambien) 5 mg PRN QHS PRN PO INSOMNIA Last administered on 21:43; Start 01/19/19 at 17:00 Acetaminophen (Tylenol) 650 mg PRN Q4HRS PRN PO TEMP OVER 100.4F OR MILD PAIN Last administered on 01/20/19at 21:19; Start 01/19/19 at 17:00 Diphenhydramine HCl (Benadryl) 25 mg PRN Q4HRS PRN IVP ITCHING; Start 01/19/19 at 17:00 Docusate Sodium (Colace) 100 mg PRN BID PRN PO CONSTIPATION; Start 01/19/19 at 17:00 Albuterol Sulfate (Ventolin Neb Soln) 2.5 mg PRN Q4HRS PRN NEB SHORTNESS OF BREATH; Start 01/19/19 at 17:00 Albuterol/ Ipratropium (Duoneb) 3 ml Q4HRS NEB Last administered on 01/19/19 18:22; Start 01/19/19 at 20:00; Stop 01/20/19 at 12:42; Status DC Guaifenesin (Robitussin) 200 mg PRN Q4HRS PRN PO COUGH; Start 01/19/19 at 17:00 Lorazepam (Ativan) 2 mg PRN Q4HRS PRN IV ANXIETY / AGITATION; Start 01/19/19 at 17:00; Stop 01/20/19 at 10:53; Status DC Lactobacillus Rhamnosus (Culturelle) 1 cap BID PO Last administered on 08:40; Start 01/19/19 at 21:00 Metoprolol Succinate (Toprol Xl) 50 mg DAILY PO Last administered on 01/23/19 08:40; Start 01/20/19 at 09:00 Tramadol HCl (Ultram) 50 mg PRN Q6HRS PRN PO MODERATE TO SEVERE PAIN Last administered on 01/23/19 06:28; Start 01/19/19 at 17:00 Amlodipine Besylate (Norvasc) 5 mg DAILY PO Last administered on 01/23/19 08: 40; Start 01/20/19 at 09:00 Non-Formulary Medication (Mirabegron (Myrbetriq)) 50 mg DAILY08 PO ; Start 01/20 at 08:00; Status UNV Pantoprazole Sodium (Protonix) 40 mg DAILYAC PO Last administered on 01/21/19 09:11; Start 01/20/19 at 07:30; Stop 01/21/19 at 16:25; Status DC Albuterol/ Ipratropium (Duoneb) 3 ml STK-MED ONCE .ROUTE ; Start 01/19/19 at 18: 19; Stop 01/19/19 at 18:20; Status DC Lisinopril (Prinivil) 20 mg DAILY PO Last administered on 01/23/19 08:39; Start 01/20/19 at 09:00 Ceftriaxone Sodium (Rocephin) 1 gm Q24H IVP Last administered on 01/20/19at 16: 35; Start 01/20/19 at 16:00; Stop 01/21/19 at 15:28; Status DC Albuterol/ Ipratropium (Duoneb) 3 ml PRN Q4HRS PRN NEB SHORTNESS OF BREATH; Start 01/20/19 at 12:45 Metoclopramide HCl (Reglan Vial) 5 mg PRN Q6HRS PRN IV NAUSEA/VOMITING, 2nd choice Last administered on 01/21/19 18:36; Start 01/21/19 at 15:15 Cefdinir (Omnicef) 300 mg BID PO Last administered on 01/23/19 08:39; Start at 16:00 Pantoprazole Sodium (PROTONIX VIAL for IV PUSH) 40 mg DAILYAC IVP Last administered on 01/23/19 08:39; Start 01/22/19 at 07:30 Polyethylene Glycol (miraLAX PACKET) 17 gm DAILY PO Last administered on 08:39; Start 01/22/19 at 09:00 Polyethylene Glycol (miraLAX PACKET) 17 gm PRN DAILY PRN PO CONSTIPATION; Start 01/21/19 at 16:30 Polyethylene Glycol (miraLAX PACKET) 17 gm DAILY PO Last administered on 12:25; Start 01/22/19 at 12:00 Senna/Docusate Sodium (Senna Plus) 1 tab PRN BID PRN PO CONSTIPATION Last administered on 01/22/19 20:09; Start 01/22/19 at 12:00 Active Scripts Active Tramadol Hcl 50 Mg Tablet 50 Mg PO Q6HRS PRN Cefuroxime (Cefuroxime Axetil) 250 Mg Tablet 250 Mg PO BID 5 Days Culturelle (Lactobacillus Rhamnosus Gg) 1 Each Cap.sprink 1 Cap PO BID 5 Days [Pantoprazole] 40 MG Tablet.dr 40 Mg PO DAILYAC 30 Days Reported Amlodipine-Benazepril 5-20 Mg (Amlodipine Besylate/Benazepril) 1 Each Capsule 1 Cap PO DAILY Metoprolol Tartrate 50 Mg Tablet 1 Tab PO DAILY08 Myrbetriq (Mirabegron) 50 Mg Tab.er.24h 50 Mg PO DAILY08 Vitals/I & O Vital Sign - Last 24 Hours 01/22/19 01/22/19 01/22/19 01/22/19 15:00 19:45 20:00 20:10 Temp 98.1 97.8 98.1 97.8 Pulse 77 83 Resp 16 20 B/P (MAP) 153/61 (91) 153/67 (95) Pulse Ox 94 94 O2 Delivery Room Air Room Air Room Air Room Air 01/22/19 01/22/19 01/23/19 01/23/19 21:10 23:48 03:31 06:28 Temp 97.9 98.0 97.9 98.0 Pulse 80 74 Resp 20 20 B/P (MAP) 148/58 (88) 130/64 (86) Pulse Ox 91 94 O2 Delivery Room Air Room Air Room Air Room Air 01/23/19 01/23/19 01/23/19 01/23/19 07:00 08:00 08:39 08:40 Temp 97.2 97.2 Pulse 78 Resp 18 B/P (MAP) 158/62 (94) 158/62 158/62 Pulse Ox 92 O2 Delivery Room Air Room Air 01/23/19 08:40 B/P (MAP) 158/62 Intake and Output 01/22/19 01/22/19 01/23/19 14:59 22:59 06:59 Intake Total 150 ml 250 ml 100 ml Balance 150 ml 250 ml 100 ml BRAB WALKER MD Jan 23, 2019 11:13
--- NOTE | 2019-01-23 12:45 | PDOC ---
GI PROGRESS NOTES Date Date/Time DATE: 01/23/19 TIME: 12:43 Subjective Subjective improved- watching TV in chair- tolerating diet without vomiting or pain Objective Vitals Vital Signs Date Time Temp Pulse Resp B/P (MAP) Pulse Ox O2 Delivery O2 Flow Rate FiO2 01/23/19 11:00 97.5 84 16 147/57 (87) 94 Room Air 97.5 01/23/19 08:40 158/62 01/23/19 08:40 158/62 01/23/19 08:39 158/62 01/23/19 08:00 Room Air 01/23/19 07:00 97.2 78 18 158/62 (94) 92 Room Air 97.2 01/23/19 06:28 Room Air 01/23/19 03:31 98.0 74 20 130/64 (86) 94 Room Air 98.0 01/22/19 23:48 97.9 80 20 148/58 (88) 91 Room Air 97.9 01/22/19 21:10 Room Air 01/22/19 20:10 Room Air 01/22/19 20:00 Room Air 01/22/19 19:45 97.8 83 20 153/67 (95) 94 Room Air 97.8 01/22/19 15:00 98.1 77 16 153/61 (91) 94 Room Air 98.1 Labs Labs Laboratory Tests Test 01/22/19 12:50 White Blood Count 7.2 x10^3/uL (4.0-11.0) Red Blood Count 3.46 x10^6/uL (3.50-5.40) Hemoglobin 11.5 g/dL (12.0-15.5) Hematocrit 34.0 % (36.0-47.0) Mean Corpuscular Volume 98 fL (79-100) Mean Corpuscular Hemoglobin 33 pg (25-35) Mean Corpuscular Hemoglobin Concent 34 g/dL (31-37) Red Cell Distribution Width 11.9 % (11.5-14.5) Platelet Count 233 x10^3/uL (140-400) Neutrophils (%) (Auto) 71 % (31-73) Lymphocytes (%) (Auto) 21 % (24-48) Monocytes (%) (Auto) 7 % (0-9) Eosinophils (%) (Auto) 0 % (0-3) Basophils (%) (Auto) 1 % (0-3) Neutrophils # (Auto) 5.1 x10^3uL (1.8-7.7) Lymphocytes # (Auto) 1.5 x10^3/uL (1.0-4.8) Monocytes # (Auto) 0.5 x10^3/uL (0.0-1.1) Eosinophils # (Auto) 0.0 x10^3/uL (0.0-0.7) Basophils # (Auto) 0.0 x10^3/uL (0.0-0.2) Sodium Level 138 mmol/L (136-145) Potassium Level 3.8 mmol/L (3.5-5.1) Chloride Level 102 mmol/L (98-107) Carbon Dioxide Level 28 mmol/L (21-32) Anion Gap 8 (6-14) Blood Urea Nitrogen 13 mg/dL (7-20) Creatinine 0.9 mg/dL (0.6-1.0) Estimated GFR (Cockcroft-Gault) 59.0 Glucose Level 161 mg/dL (70-99) Calcium Level 8.4 mg/dL (8.5-10.1) Physical Exam Physical Exam alert [place] chest- clear abd- soft non tender good bowel sounds Assessment Assessment Large hiatal hernia with episode of n/v - now resolved- no abd pain, chest pain or dysphagia reported- which speaks against torsion or compromise of large hiatal hernia- clinically improved- tolerating diet Constipation- getting laxative but no BM yet Stable from GI point of view Plan Plan Try to slowly advance diet as tolerated- patient not interested in surgical options monitor for recurrent vomiting, pain or dysphagia ROBERT JUNE MD Jan 23, 2019 12:44
--- NOTE | 2019-01-23 14:31 | PDOC3 ---
Discharge Summary Date of Admission: Jan 19, 2019 Date of Discharge: Jan 23, 2019 Follow-Up: 1-2 days Admitting Diagnosis comment: DISCHARGE DX ========= Syncopal episode, cardiac etiology, vs neurological event , SUSPECT ORTHOSTASIS History of hypertension CKD stage 3a Asymptomatic bacteriuria UTI HYPOXIA POA, WITH SLEEP GERD Diffuse prominent appearing bilateral interstitial lung markings likely chronic interstitial changes or edema. OBSTIPATION, PERSISTENT, RESOLVED GERD POOR ACTIVITY TOLERANCE 01/21 HAD EPISODE OF EMESIS WITH LUNCH 01/22, VERY CONSTIPATED ON KUB, RESOLVED Plan: CXR rocvephin IV Q 24 HRS D/C, BEGIN OMNICEF 300 MG PO BID resume home meds check orthostatics dvt prophylaxis: heparin Pt eval NEUROLOGY CONSULT REVIEWED TELE NEUROCHECKS Q 4 HRS DOPPLER CAROTIDS ECHO EEG OUTPT [facility], [facility] NOW NEEDS HOME HEALTH 34 min pt exam D/C PLANNING , chart review, > 50% of time spent with exam, chart review, pt care coordination Vitals Vitals Vital Signs Date Time Temp Pulse Resp B/P (MAP) Pulse Ox O2 Delivery O2 Flow Rate FiO2 01/23/19 08:40 158/62 01/23/19 08:00 Room Air 01/23/19 07:00 97.2 78 18 92 97.2 Physical Exam Physical Exam Head: Normal shape atraumatic Eyes: Pupils equal reactive to light and accommodation, normal conjunctivae and lids Ears: Normal shape Nose: Normal shape no trauma Mouth: No exudates of the back of throat no thrush no lesions Neck: Supple no JVD no carotid bruit or lymphadenopathy no thyromegaly Chest: Lungs clear to auscultation with good inspiratory effort no crackles rales or rhonchi Cardiovascular: S1-S2 regular rhythm no murmurs gallops or rubs Abdomen: Bowel sounds present soft nontender no hepatosplenomegaly appreciated sign Extremities: No clubbing no cyanosis no edema peripheral pulses palpated bilaterally Neurological: Alert awake oriented in person time place and situation, cranial nerves II through XII intact, General: Alert, Oriented X3, Cooperative, No acute distress Heart: Regular rate (SR), Normal S1, Normal S2, Other (2/6 systolic murmur to LLS border) Lungs: Clear Abdomen: Normal bowel sounds, Soft, No tenderness Extremities: No clubbing, No cyanosis, No edema Skin: No breakdown, No significant lesion FINAL DIAGNOSIS Problems Medical Problems: (1) Anemia Status: Acute (2) Chronic renal insufficiency Status: Acute (3) Syncope Status: Acute Brief Hospital Course Ms. Medina is a 88 old [sex] who presented with [ SYNCOPE] CONDITION AT DISCHARGE: Improved Discharge Medications Current Medications Ceftriaxone Sodium (Rocephin) 1 gm 1X ONCE IVP Last administered on 01/19/19 16:27; Start 01/19/19 at 16:15; Stop 01/19/19 at 16:16; Status DC Sodium Chloride 1,000 ml @ 125 mls/hr Q8H IV Last administered on 01/20/19at 16 :35; Start 01/19/19 at 16:29; Stop 01/20/19 at 16:28; Status DC Ondansetron HCl (Zofran) 4 mg PRN Q4HRS PRN IV NAUSEA/VOMITING, 1ST CHOICE Last administered on 01/21/19at 12:54; Start 01/19/19 at 17:00 Zolpidem Tartrate (Ambien) 5 mg PRN QHS PRN PO INSOMNIA Last administered on 09/29at 21:43; Start 01/19/19 at 17:00 Acetaminophen (Tylenol) 650 mg PRN Q4HRS PRN PO TEMP OVER 100.4F OR MILD PAIN Last administered on 01/20/19at 21:19; Start 01/19/19 at 17:00 Diphenhydramine HCl (Benadryl) 25 mg PRN Q4HRS PRN IVP ITCHING; Start 01/19/19 at 17:00 Docusate Sodium (Colace) 100 mg PRN BID PRN PO CONSTIPATION (1st Choice); Start 01/19/19 at 17:00 Albuterol Sulfate (Ventolin Neb Soln) 2.5 mg PRN Q4HRS PRN NEB SHORTNESS OF BREATH; Start 01/19/19 at 17:00 Albuterol/ Ipratropium (Duoneb) 3 ml Q4HRS NEB Last administered on 01/19/19at 18:22; Start 01/19/19 at 20:00; Stop 01/20/19 at 12:42; Status DC Guaifenesin (Robitussin) 200 mg PRN Q4HRS PRN PO COUGH; Start 01/19/19 at 17:00 Lorazepam (Ativan) 2 mg PRN Q4HRS PRN IV ANXIETY / AGITATION; Start 01/19/19 at 17:00; Stop 01/20/19 at 10:53; Status DC Lactobacillus Rhamnosus (Culturelle) 1 cap BID PO Last administered on 08:40; Start 01/19/19 at 21:00 Metoprolol Succinate (Toprol Xl) 50 mg DAILY PO Last administered on 01/23/19 08:40; Start 01/20/19 at 09:00 Tramadol HCl (Ultram) 50 mg PRN Q6HRS PRN PO MODERATE TO SEVERE PAIN Last administered on 01/23/19 06:28; Start 01/19/19 at 17:00 Amlodipine Besylate (Norvasc) 5 mg DAILY PO Last administered on 01/23/19 08: 40; Start 01/20/19 at 09:00 Non-Formulary Medication (Mirabegron (Myrbetriq)) 50 mg DAILY08 PO ; Start 01/20 at 08:00; Status UNV Pantoprazole Sodium (Protonix) 40 mg DAILYAC PO Last administered on 01/21/19at 09:11; Start 01/20/19 at 07:30; Stop 01/21/19 at 16:25; Status DC Albuterol/ Ipratropium (Duoneb) 3 ml STK-MED ONCE .ROUTE ; Start 01/19/19 at 18: 19; Stop 01/19/19 at 18:20; Status DC Lisinopril (Prinivil) 20 mg DAILY PO Last administered on 01/23/19at 08:39; Start 01/20/19 at 09:00 Ceftriaxone Sodium (Rocephin) 1 gm Q24H IVP Last administered on 01/20/19at 16: 35; Start 01/20/19 at 16:00; Stop 01/21/19 at 15:28; Status DC Albuterol/ Ipratropium (Duoneb) 3 ml PRN Q4HRS PRN NEB SHORTNESS OF BREATH; Start 01/20/19 at 12:45 Metoclopramide HCl (Reglan Vial) 5 mg PRN Q6HRS PRN IV NAUSEA/VOMITING, 2nd choice Last administered on 01/21/19 18:36; Start 01/21/19 at 15:15 Cefdinir (Omnicef) 300 mg BID PO Last administered on 01/23/19 08:39; Start at 16:00 Pantoprazole Sodium (PROTONIX VIAL for IV PUSH) 40 mg DAILYAC IVP Last administered on 01/23/19 08:39; Start 01/22/19 at 07:30 Polyethylene Glycol (miraLAX PACKET) 17 gm DAILY PO Last administered on 08:39; Start 01/22/19 at 09:00; Stop 01/23/19 at 13:12; Status DC Polyethylene Glycol (miraLAX PACKET) 17 gm PRN DAILY PRN PO CONSTIPATION (3rd Choice); Start 01/21/19 at 16:30 Polyethylene Glycol (miraLAX PACKET) 17 gm DAILY PO Last administered on at 12:25; Start 01/22/19 at 12:00 Senna/Docusate Sodium (Senna Plus) 1 tab PRN BID PRN PO CONSTIPATION (2nd Choice) Last administered on 01/22/19 20:09; Start 01/22/19 at 12:00 Active Scripts Active Tramadol Hcl 50 Mg Tablet 50 Mg PO Q6HRS PRN Cefuroxime (Cefuroxime Axetil) 250 Mg Tablet 250 Mg PO BID 5 Days Culturelle (Lactobacillus Rhamnosus Gg) 1 Each Cap.sprink 1 Cap PO BID 5 Days [Pantoprazole] 40 MG Tablet.dr 40 Mg PO DAILYAC 30 Days Reported Amlodipine-Benazepril 5-20 Mg (Amlodipine Besylate/Benazepril) 1 Each Capsule 1 Cap PO DAILY Metoprolol Tartrate 50 Mg Tablet 1 Tab PO DAILY08 Myrbetriq (Mirabegron) 50 Mg Tab.er.24h 50 Mg PO DAILY08 Vital Signs Vital Signs Date Time Temp Pulse Resp B/P (MAP) Pulse Ox O2 Delivery O2 Flow Rate FiO2 01/23/19 11:00 97.5 84 16 147/57 (87) 94 Room Air 97.5 Labs Laboratory Tests Test 01/22/19 12:50 White Blood Count 7.2 x10^3/uL (4.0-11.0) Red Blood Count 3.46 x10^6/uL (3.50-5.40) Hemoglobin 11.5 g/dL (12.0-15.5) Hematocrit 34.0 % (36.0-47.0) Mean Corpuscular Volume 98 fL (79-100) Mean Corpuscular Hemoglobin 33 pg (25-35) Mean Corpuscular Hemoglobin Concent 34 g/dL (31-37) Red Cell Distribution Width 11.9 % (11.5-14.5) Platelet Count 233 x10^3/uL (140-400) Neutrophils (%) (Auto) 71 % (31-73) Lymphocytes (%) (Auto) 21 % (24-48) Monocytes (%) (Auto) 7 % (0-9) Eosinophils (%) (Auto) 0 % (0-3) Basophils (%) (Auto) 1 % (0-3) Neutrophils # (Auto) 5.1 x10^3uL (1.8-7.7) Lymphocytes # (Auto) 1.5 x10^3/uL (1.0-4.8) Monocytes # (Auto) 0.5 x10^3/uL (0.0-1.1) Eosinophils # (Auto) 0.0 x10^3/uL (0.0-0.7) Basophils # (Auto) 0.0 x10^3/uL (0.0-0.2) Sodium Level 138 mmol/L (136-145) Potassium Level 3.8 mmol/L (3.5-5.1) Chloride Level 102 mmol/L (98-107) Carbon Dioxide Level 28 mmol/L (21-32) Anion Gap 8 (6-14) Blood Urea Nitrogen 13 mg/dL (7-20) Creatinine 0.9 mg/dL (0.6-1.0) Estimated GFR (Cockcroft-Gault) 59.0 Glucose Level 161 mg/dL (70-99) Calcium Level 8.4 mg/dL (8.5-10.1) Allergies Allergies Coded Allergies Type Severity Reaction Last Updated Verified Yeast Allergy Intermediate 09/21/18 Yes Disposition/Orders: D/C to Home w/ HH Patient Instructions D/C PLANNING 34 MIN BARB WALKER MD Jan 23, 2019 14:31
[2019-01-23] MEDS ORDERED: CEFD300C PO (14:36)
[2019-01-23] MEDS ORDERED: ALBU2.5V8 NEB (14:36)
[2019-01-23] MEDS ORDERED: POLY17PO28 PO (14:36)
[2019-01-23] MEDS ORDERED: METO10TA81 PO (14:36)
[2019-01-23] MEDS ORDERED: DOCU-109 PO (14:36)
--- NOTE | 2019-01-23 14:40 | SNU/HH DC ---
DISCHARGE WITH HOME HEALTH DISCHARGE INFORMATION: Final Diagnosis: Problems Medical Problems: (1) Anemia Status: Acute (2) Chronic renal insufficiency Status: Acute (3) Syncope Status: Acute Condition on Discharge: Stable CODE STATUS: Code Status: Full HOME HEALTH: Face to Face: I certify this patient is under my care and that I, or a nurse practitioner or physician's wet process assistant head miller working with me, had a face to face encounter that meets the physician face to face encounter requirements with this patient on []. Medical Complications: COPD, DJD RN For Eval/Treatment: Yes Physical Therapy For: Evalulation/Treatment Occupational Therapy For: Evaluation/Treatment Speech Language Pathology For: Evaluation/Treatment Home Health Aide For: Self-care VERIFYING SPECIALIST For: Community Resources Pt Meets Homebound Status: Unsteady balance w/ amb, POST DISCHARGE ORDERS: Activity Instructions for Disc: No restrictions, Resume previous activity, Activity as tolerated Weight Bearing Status after Di: As tolerated DIET AFTER DISCHARGE: Cardiac CHECKS AFTER DISCHARGE: Checks after discharge: Check blood press - daily, Weigh Yourself Daily TREATMENT/EQUIPMENT ORDERS: Adaptive Equipment Issued: None, Front wheeled walker CERTIFICATION STATEMENT: Certification Statement: Certification Statement: Based on the above finding, I certify that this patient is confined to the home and needs intermittent usp care, physical therapy and/or speech therapy, or continues to need occupational therapy.~ This patient is under my care, and I have initiated the establishment of the plan of care.~ This patient will be followed by myself or a community physician who will periodically review the plan of care. Home Meds Active Scripts Metoclopramide Hcl (REGLAN) 10 Mg Tablet, 1 TAB PO TID for GASTROPARESIS MDD 15 MG for 14 Days, #42 TAB 1 Refill Prov:BARB WALKER MD 01/23/19 Polyethylene Glycol 3350 (POLYETHYLENE GLYCOL 3350) 17 Gm Powd.pack, 17 GM PO PRN DAILY PRN for CONSTIPATION (3rd Choice) for 14 Days, #14 PKT Prov:BARB WALKER MD 01/23/19 Docusate Sodium (COLACE) 100 Mg Capsule, 100 MG PO PRN BID PRN for CONSTIPATION (1st Choice) for 10 Days, #10 CAP Prov:BARB WALKER MD 01/23/19 Albuterol Sulfate (Proair Hfa) 8.5 Gm Hfa.aer.ad, 2.5 MG NEB PRN Q4HRS PRN for SHORTNESS OF BREATH for 10 Days, #1 INHALER Prov:BARB WALKER MD 01/23/19 Cefdinir (CEFDINIR) 300 Mg Capsule, 300 MG PO BID for UTI for 10 Days, #20 CAP Prov:BARB WALKER MD 01/23/19 Lactobacillus Rhamnosus Gg (CULTURELLE) 1 Each Cap.sprink, 1 CAP PO BID for UTI for 5 Days, #10 CAP Prov:ELIJAH ALEXANDRE MD 09/24/18 [Pantoprazole] 40 MG TABLET.DR Perez Conflict Check, 40 MG PO DAILYAC for GERD for 30 Days, #30 Prov:ELIJAH ALEXANDRE MD 09/24/18 Reported Medications Amlodipine Besylate/Benazepril (AMLODIPINE-BENAZEPRIL 5-20 MG) 1 Each Capsule, 1 CAP PO DAILY for HTN, #30 CAP 5 Refills 09/20/18 Metoprolol Tartrate (METOPROLOL TARTRATE) 50 Mg Tablet, 1 TAB PO DAILY08 for HTN , #60 TAB 5 Refills 09/20/18 Mirabegron (MYRBETRIQ) 50 Mg Tab.er.24h, 50 MG PO DAILY08 for overactive bladder , TAB.SR 09/20/18 Discontinued Scripts Tramadol Hcl (TRAMADOL HCL) 50 Mg Tablet, 50 MG PO Q6HRS PRN for PAIN, #20 TAB Prov:EVERETTE KEE DO 01/07/19 Cefuroxime Axetil (CEFUROXIME) 250 Mg Tablet, 250 MG PO BID for UTI for 5 Days, #10 TAB Prov:ELIJAH ALEXANDRE MD 09/24/18 BARB WALKER MD Jan 23, 2019 14:39
[2019-01-23 15:00] VITALS: BP 148/67
--- NOTE | 2019-01-23 17:06 | NUR ---
Patient was discharged from facility per Dr. Jacob's order. Patient left with her discharge packet which included information regarding her medications. She also left with her scripts for Reglan, Protonix, Albuterol and Omnicef. Prior to discharge the packet and prescription information was reviewed with the patient and she had no questions regarding the information she was provided. The client also received information regarding GERD and falls. Patient left the unit in a wheelchair with her documentation and belongs. She was escorted to the main entrance of the facility where she transfered into a private vehicle operated by a family member. Home health will be contacting the patient tomorrow am regarding services.
== END 2019-01-23 17:10 | disposition home health service (06) | DRG 74 ==
LOC: ER 13:49 → ED HOLD 16:16 → 6 SOUTH 18:28
PROVIDERS: ADMIT Internal Medicine; ATTEND Internal Medicine
DX: G90.8 Other disorders of autonomic nervous system (principal); N39.0 Urinary tract infection, site not specified; I47.1 Supraventricular tachycardia; I12.9 Hypertensive chronic kidney disease with stage 1 through stage 4 chronic kidney disease, or unspecified chronic kidney disease; N18.3 Chronic kidney disease, stage 3 (moderate); M19.90 Unspecified osteoarthritis, unspecified site; K21.9 Gastro-esophageal reflux disease without esophagitis; E78.00 Pure hypercholesterolemia, unspecified; D64.9 Anemia, unspecified; E78.5 Hyperlipidemia, unspecified; J32.9 Chronic sinusitis, unspecified; K44.9 Diaphragmatic hernia without obstruction or gangrene; R09.02 Hypoxemia; Z90.710 Acquired absence of both cervix and uterus; K59.00 Constipation, unspecified; Z87.440 Personal history of urinary (tract) infections; G31.9 Degenerative disease of nervous system, unspecified
CPT/HCPCS: 36415; 70450; 71046; 74018; 80048; 80053; 81001; 82607; 83540; 83550; 83605; 83735; 83880; 84443; 84484; 85025; 85045; 93005; 93306; 93880; 94640; 94760; 96374; 96376; C9113; J0696; J2405; J2765; J7030; J7620; 97110; 97116; 97530; 99285-25

== ENCOUNTER 2019-02-09 08:51 | Emergency (ER) | payer MEDICARE ==
[~2019-02-09] VITALS: Ht 160 cm; Wt 58.1 kg
[~2019-02-09 08:51] MED LIST changes: +ALBU2.5V8 NEB; +CEFD300C PO; +DOCU-109 PO; +METO10TA81 PO; +POLY17PO28 PO
--- NOTE | 2019-02-09 09:30 | PHYS DOC ---
Past Medical History Past Medical History: Arthritis, GERD, High Cholesterol, Hypertension, Other Additional Past Medical Histor: urinary incontinence Past Surgical History: Hysterectomy Additional Past Surgical Histo: L foot surgery Alcohol Use: None Drug Use: None Adult General Chief Complaint Chief Complaint: URINARY FREQUENCY HPI HPI Patient is an 88-year-old female who presents to the emergency department via EMS. Her chief complaint is urinary frequency, she states she is urinating every 15 minutes. She states this has been going on for the past 2 days. She has not had any fevers, nausea or vomiting. She denies any abdominal pain. She denies any dysuria, per se. She was hospitalized here about 3 weeks ago, after syncopal episode, and was treated for a UTI with cephalosporins. She states she felt a little "shaky" upon awakening this morning, but did not have any dizziness, chest pain or shortness of breath, numbness or weakness. She is able to ambulate to the front room in her house where she met the ambulance, and states that she does not feel shaky or dizzy at this time. She has no other complaints. There are no alleviating or exacerbating factors to her symptoms otherwise. Review of Systems Review of Systems Constitutional: Denies fever or chills [] Eyes: Denies change in visual acuity, redness, or eye pain [] HENT: Denies nasal congestion or sore throat [] Respiratory: Denies cough or shortness of breath [] Cardiovascular: No additional information not addressed in HPI [] GI: Denies abdominal pain, nausea, vomiting, bloody stools or diarrhea [] : Denies dysuria or hematuria [] Musculoskeletal: Denies back pain or joint pain [] Integument: Denies rash or skin lesions [] Neurologic: Denies headache, focal weakness or sensory changes [] Endocrine: Denies polyuria or polydipsia [] All other systems were reviewed and found to be within normal limits, except as documented in this note. Current Medications Current Medications Current Medications Medications (Trade) Dose Ordered Sig/Martin Start Time Stop Time Status Last Admin Dose Admin Ceftriaxone Sodium (Rocephin) 1 gm 1X ONCE 02/09/19 10:45 02/09/19 10:46 DC 02/09/19 11:10 1 GM Trimethoprim/ Sulfamethoxazole (Bactrim Ds) 1 tab 1X ONCE 02/09/19 10:45 02/09/19 10:46 DC 02/09/19 11:10 1 TAB Allergies Allergies Allergies Coded Allergies Type Severity Reaction Last Updated Verified Yeast Allergy Intermediate 09/21/18 Yes Physical Exam Physical Exam PHYSICAL EXAM: CONSTITUTIONAL: Well developed, well nourished HEAD: normocephalic, atraumatic EENT: PERRL, EOMI. Conjunctivae normal color, sclerae non-icteric; moist mucous membranes. NECK: Supple, non-tender; no meningismus. LUNGS: Lungs CTA, breathing even and unlabored. Normal air movement. HEART: Regular rate and rhythm, no murmur CHEST: No deformity; non-tender ABDOMEN: The abdomen is soft, and non-tender, no masses or bruits. EXTREM: Normal ROM; no deformity, no calf tenderness. Normal pulses palpable in all extremities. There is no pedal edema. SKIN: No rash; no diaphoresis NEURO: Alert; normal speech and cognition; CN's grossly intact; strength grossly intact without focal deficit. BACK: No CVA TTP. Current Patient Data Vital Signs Vital Signs Date Time Temp Pulse Resp B/P (MAP) Pulse Ox O2 Delivery O2 Flow Rate FiO2 02/09/19 08:56 97.7 17 194/77 (116) Room Air 97.7 Lab Values Laboratory Tests Test 02/09/19 09:15 02/09/19 09:30 Urine Collection Type U cath Urine Color Yellow Urine Clarity Cloudy Urine pH 7.5 Urine Specific [place] 1.010 Urine Protein 100 mg/dL (NEG-TRACE) Urine Glucose (UA) Negative mg/dL (NEG) Urine Ketones (Stick) Negative mg/dL (NEG) Urine Blood Moderate (NEG) Urine Nitrite Negative (NEG) Urine Bilirubin Negative (NEG) Urine Urobilinogen Dipstick 0.2 mg/dL (0.2 mg/dL) Urine Leukocyte Esterase Large (NEG) Urine RBC 6-10 /HPF (0-2) Urine WBC Tntc /HPF (0-4) Urine Bacteria 0 /HPF (0-FEW) White Blood Count 9.2 x10^3/uL (4.0-11.0) Red Blood Count 3.32 x10^6/uL (3.50-5.40) L Hemoglobin 11.1 g/dL (12.0-15.5) L Hematocrit 32.8 % (36.0-47.0) L Mean Corpuscular Volume 99 fL (79-100) Mean Corpuscular Hemoglobin 33 pg (25-35) Mean Corpuscular Hemoglobin Concent 34 g/dL (31-37) Red Cell Distribution Width 12.1 % (11.5-14.5) Platelet Count 224 x10^3/uL (140-400) Neutrophils (%) (Auto) 75 % (31-73) H Lymphocytes (%) (Auto) 14 % (24-48) L Monocytes (%) (Auto) 10 % (0-9) H Eosinophils (%) (Auto) 1 % (0-3) Basophils (%) (Auto) 1 % (0-3) Neutrophils # (Auto) 6.9 x10^3uL (1.8-7.7) Lymphocytes # (Auto) 1.3 x10^3/uL (1.0-4.8) Monocytes # (Auto) 0.9 x10^3/uL (0.0-1.1) Eosinophils # (Auto) 0.1 x10^3/uL (0.0-0.7) Basophils # (Auto) 0.0 x10^3/uL (0.0-0.2) Sodium Level 141 mmol/L (136-145) Potassium Level 3.8 mmol/L (3.5-5.1) Chloride Level 104 mmol/L (98-107) Carbon Dioxide Level 26 mmol/L (21-32) Anion Gap 11 (6-14) Blood Urea Nitrogen 15 mg/dL (7-20) Creatinine 1.0 mg/dL (0.6-1.0) Estimated GFR (Cockcroft-Gault) 52.2 BUN/Creatinine Ratio 15 (6-20) Glucose Level 92 mg/dL (70-99) Calcium Level 8.8 mg/dL (8.5-10.1) Magnesium Level 1.8 mg/dL (1.8-2.4) Total Bilirubin 0.6 mg/dL (0.2-1.0) Aspartate Amino Transferase (AST) 22 U/L (15-37) Alanine Aminotransferase (ALT) 15 U/L (14-59) Alkaline Phosphatase 114 U/L (46-116) Troponin I Quantitative < 0.017 ng/mL (0.000-0.055) Total Protein 6.7 g/dL (6.4-8.2) Albumin 3.6 g/dL (3.4-5.0) Albumin/Globulin Ratio 1.2 (1.0-1.7) Laboratory Tests 02/09/19 09:30 Laboratory Tests 02/09/19 09:30 EKG EKG Normal sinus rhythm a rate of 74 beats for minute, normal axis, normal interv als, poor anterior R-wave progression, low voltage, no acute ischemic ST/T changes.[] Radiology/Procedures Radiology/Procedures [] Course & Med Decision Making Course & Med Decision Making Pertinent Lab studies reviewed. (See chart for details) [11:55 AM:Patient remains stable. I discussed test results, the need for close follow-up, and return precautions.] There is no urine culture available from the patient's recent hospitalization. A urine culture from September showed pansensitive Escherichia coli. The patient be treated with Bactrim, to switch from the cephalosporins she was recently treated with for a UTI. Dragon Disclaimer Dragon Disclaimer This electronic medical record was generated, in whole or in part, using a voice recognition dictation system. Departure Departure Impression: Primary Impression: UTI (urinary tract infection) Disposition: HOME, SELF-CARE Condition: STABLE Referrals: RUBEN MCKEON MD (PCP) Patient Instructions: Urinary Tract Infection Scripts Sulfamethoxazole/Trimethoprim (BACTRIM DS TABLET) 1 Each Tablet 1 TAB PO BID, #14 TAB Prov: GAMAL ART MD 02/09/19 GAMAL ART MD February 09, 2019 09:30
[2019-02-09 09:44] LABS: BILIRUBIN,URINE NEGATIVE (NEG); CLARITY,URINE CLOUDY; COLOR,URINE YELLOW; NITRITE,URINE NEGATIVE (NEG); PH,URINE 7.5; PROTEIN,URINE 100 mg/dL (NEG-TRACE); UROBILINOGEN,URINE 0.2 mg/dL (0.2 mg/dL)
[2019-02-09 09:54] LABS: CALCIUM 8.8 mg/dL (8.5-10.1); GFR 52.2; POTASSIUM 3.8 mmol/L (3.5-5.1)
[2019-02-09 09:59] LABS: BACTERIA,URINE 0 /HPF (0-FEW); WBC,URINE TNTC /HPF (0-4)
[2019-02-09 10:00] LABS: ALBUMIN 3.6 g/dL (3.4-5.0); ALBUMIN/GLOBULIN RATIO 1.2 (1.0-1.7); MAGNESIUM 1.8 mg/dL (1.8-2.4); TOTAL BILIRUBIN 0.6 mg/dL (0.2-1.0); TOTAL PROTEIN 6.7 g/dL (6.4-8.2)
[2019-02-09 10:43] LABS: BASO % 1 % (0-3); EOS # 0.1 x10^3/uL (0.0-0.7); EOS % 1 % (0-3); HEMATOCRIT 32.8 % (36.0-47.0); HEMOGLOBIN 11.1 g/dL (12.0-15.5); LYMPH # 1.3 x10^3/uL (1.0-4.8); LYMPH % 14 % (24-48); MEAN CORPUSCULAR HEMOGLOBIN 33 pg (25-35); MEAN CORPUSCULAR HGB CONC 34 g/dL (31-37); MEAN CORPUSCULAR VOLUME 99 fL (79-100); MONO # 0.9 x10^3/uL (0.0-1.1); MONO % 10 % (0-9); NEUT # 6.9 x10^3uL (1.8-7.7); NEUT % 75 % (31-73); PLATELET COUNT 224 x10^3/uL (140-400); RED BLOOD COUNT 3.32 x10^6/uL (3.50-5.40); RED CELL DISTRIBUTION WIDTH 12.1 % (11.5-14.5); WHITE BLOOD COUNT 9.2 x10^3/uL (4.0-11.0)
[2019-02-09] MEDS ORDERED: SMZ/TMP 800/160MG TABLET. PO ONE (10:45)
[2019-02-09] MEDS ORDERED: cefTRIAXone IV Push 1 GM VIAL. IVP ONE (10:45)
[2019-02-09] MEDS ORDERED: SULF1TAB24 PO (12:00)
[2019-02-09 12:30] VITALS: BP 153/70
--- NOTE | 2019-02-09 14:23 | EKG ---
[facility] [address] [place] [address] Test Date: 2019-02-09 Test Time: 10:30:12 Pat Name: GILSON CUEVA Department: Room: Gender: F Calender Roll Operator: [id number] : 1930 Requested By: GAMAL ART Order Number: [id number] Reading MD: Oliver Sanchez Measurements Intervals [place] Rate: 74 P: 58 MO: 170 QRS: 31 QRSD: 76 T: 53 QT: 382 QTc: 429 Interpretive Statements SINUS RHYTHM LOW LIMB LEAD VOLTAGE QRS(T) CONTOUR ABNORMALITY CANNOT RULE OUT ANTEROSEPTAL MYOCARDIAL DAMAGE Electronically Signed On 02-11-2019 9:53:17 CDT by Oliver Sanchez
== END 2019-02-09 13:10 | disposition home or self-care (01) ==
LOC: ER 08:51
DX: N39.0 Urinary tract infection, site not specified (principal); M19.90 Unspecified osteoarthritis, unspecified site; K21.9 Gastro-esophageal reflux disease without esophagitis; E78.00 Pure hypercholesterolemia, unspecified; I10 Essential (primary) hypertension; Z90.710 Acquired absence of both cervix and uterus; Z91.09 Other allergy status, other than to drugs and biological substances
CPT/HCPCS: 99285; J0696; 36415; 80053; 81001; 83735; 84484; 85025; 87086; 93005; 96374

== ENCOUNTER 2019-02-11 19:56 | Inpatient (IN) | payer MEDICARE ==
[~2019-02-11] VITALS: Ht 152.4 cm; Wt 69.1 kg
[~2019-02-11 19:56] MED LIST changes: +SULF1TAB24 PO
[2019-02-11] MEDS ORDERED: IV NORMAL SALINE 1000ML BAG 1,000 ML IV ONE (20:30)
[2019-02-11] MEDS ORDERED: fentaNYL PF VIAL 100 MCG/2 ML VIAL IV ONE ×2 (20:30→23:00)
--- NOTE | 2019-02-11 20:40 | PHYS DOC ---
Past Medical History Past Medical History: Arthritis, GERD, High Cholesterol, Hypertension, Other Additional Past Medical Histor: urinary incontinence Past Surgical History: Hysterectomy Additional Past Surgical Histo: L foot surgery Alcohol Use: None Drug Use: None Adult General Chief Complaint Chief Complaint: MECHANICAL FALL HPI HPI Patient is a 88 year old F who present with a fall. She states that she was at home getting ready for bed when she thinks that she blacked out. She has no recollection of the event and states that she woke up on the floor. She is having pain on her left shoulder and hip. She does not think that she hit her head and denies any head pain at this time. She states that she is currently on an antibiotic for a UTI. She has a history of syncope a few weeks ago. She thinks that the last time she ate was around 1pm while the last time she drank anything was around 7pm when she took her antibiotic. Review of Systems Review of Systems Constitutional: Denies fever or chills [] Eyes: Denies change in visual acuity, redness, or eye pain [] HENT: Denies nasal congestion or sore throat [] Respiratory: Denies cough or shortness of breath [] Cardiovascular: No additional information not addressed in HPI [] GI: Denies abdominal pain, nausea, vomiting, bloody stools or diarrhea [] : Denies dysuria or hematuria [] Musculoskeletal: Reports left hip and shoulder pain [] Integument: Reports a laceration on left hand [] Neurologic: Denies headache, focal weakness or sensory changes [] Endocrine: Denies polyuria or polydipsia [] All other systems were reviewed and found to be within normal limits, except as documented in this note. Current Medications Current Medications Current Medications Medications (Trade) Dose Ordered Sig/Martin Start Time Stop Time Status Last Admin Dose Admin Fentanyl Citrate (Fentanyl 2ml Vial) 50 mcg 1X ONCE 02/11/19 20:30 02/11/19 20:33 DC 02/11/19 21:35 50 MCG Sodium Chloride 1,000 ml @ 1,000 mls/hr 1X ONCE 02/11/19 20:30 02/11/19 21:29 DC 02/11/19 21:34 1,000 MLS/HR Allergies Allergies Allergies Coded Allergies Type Severity Reaction Last Updated Verified Yeast Allergy Intermediate 09/21/18 Yes Physical Exam Physical Exam Constitutional: Well developed, well nourished, no acute distress, non-toxic appearance. [] HENT: Normocephalic, atraumatic, bilateral external ears normal, oropharynx moist, no oral exudates, nose normal. [] Eyes: PERRLA, EOMI, conjunctiva normal, no discharge. [] Neck: Normal range of motion, no tenderness, supple, no stridor. [] Cardiovascular:Heart rate regular rhythm, 2/6 murmur noted. Lungs & Thorax: Bilateral breath sounds clear to auscultation [] Abdomen: Bowel sounds normal, soft, no tenderness, no masses, no pulsatile masses. [] Skin: Visible laceration on left middle finger.0.5 cm not suturable. Extremities: Tenderness to palpation on left shoulder and left hip [] reduced rom and hip is shortened and externally rotated. Neurologic: Alert and oriented X 3, normal motor function, normal sensory function, no focal deficits noted. [] Psychologic: Affect normal, judgement normal, mood normal. [] Current Patient Data Vital Signs Vital Signs Date Time Temp Pulse Resp B/P (MAP) Pulse Ox O2 Delivery O2 Flow Rate FiO2 02/11/19 21:35 16 92 02/11/19 19:58 97.5 97 165/70 (101) Room Air 97.5 Lab Values Laboratory Tests Test 02/11/19 22:10 02/11/19 22:15 White Blood Count 15.1 x10^3/uL (4.0-11.0) H Red Blood Count 3.15 x10^6/uL (3.50-5.40) L Hemoglobin 10.3 g/dL (12.0-15.5) L Hematocrit 31.1 % (36.0-47.0) L Mean Corpuscular Volume 99 fL (79-100) Mean Corpuscular Hemoglobin 33 pg (25-35) Mean Corpuscular Hemoglobin Concent 33 g/dL (31-37) Red Cell Distribution Width 12.3 % (11.5-14.5) Platelet Count 242 x10^3/uL (140-400) Neutrophils (%) (Auto) 80 % (31-73) H Lymphocytes (%) (Auto) 11 % (24-48) L Monocytes (%) (Auto) 9 % (0-9) Eosinophils (%) (Auto) 0 % (0-3) Basophils (%) (Auto) 0 % (0-3) Neutrophils # (Auto) 12.0 x10^3uL (1.8-7.7) H Lymphocytes # (Auto) 1.6 x10^3/uL (1.0-4.8) Monocytes # (Auto) 1.3 x10^3/uL (0.0-1.1) H Eosinophils # (Auto) 0.0 x10^3/uL (0.0-0.7) Basophils # (Auto) 0.0 x10^3/uL (0.0-0.2) Prothrombin Time 12.8 SEC (11.7-14.0) Prothrombin Time INR 1.0 (0.8-1.1) Sodium Level 137 mmol/L (136-145) Potassium Level 3.9 mmol/L (3.5-5.1) Chloride Level 100 mmol/L (98-107) Carbon Dioxide Level 25 mmol/L (21-32) Anion Gap 12 (6-14) Blood Urea Nitrogen 23 mg/dL (7-20) H Creatinine 1.1 mg/dL (0.6-1.0) H Estimated GFR (Cockcroft-Gault) 46.8 BUN/Creatinine Ratio 21 (6-20) H Glucose Level 158 mg/dL (70-99) H Calcium Level 8.5 mg/dL (8.5-10.1) Total Bilirubin 0.3 mg/dL (0.2-1.0) Aspartate Amino Transferase (AST) 15 U/L (15-37) Alanine Aminotransferase (ALT) 15 U/L (14-59) Alkaline Phosphatase 104 U/L (46-116) Creatine Kinase 66 U/L (26-192) Troponin I Quantitative < 0.017 ng/mL (0.000-0.055) Total Protein 6.7 g/dL (6.4-8.2) Albumin 3.5 g/dL (3.4-5.0) Albumin/Globulin Ratio 1.1 (1.0-1.7) Urine Collection Type U cath Urine Color Yellow Urine Clarity Clear Urine pH 6.5 Urine Specific [place] 1.020 Urine Protein 30 mg/dL (NEG-TRACE) Urine Glucose (UA) Negative mg/dL (NEG) Urine Ketones (Stick) Trace mg/dL (NEG) Urine Blood Moderate (NEG) Urine Nitrite Negative (NEG) Urine Bilirubin Negative (NEG) Urine Urobilinogen Dipstick 1.0 mg/dL (0.2 mg/dL) Urine Leukocyte Esterase Large (NEG) Urine RBC 11-20 /HPF (0-2) Urine WBC 20-40 /HPF (0-4) Urine Squamous Epithelial Cells Few /LPF Urine Renal Epithelial Cells Occ /LPF Urine Bacteria Few /HPF (0-FEW) Urine Mucus Mod /LPF Laboratory Tests 02/11/19 22:10 Laboratory Tests 02/11/19 22:10 EKG EKG Sinus rhythm rate 90 no acute ischemic changes[] Radiology/Procedures Radiology/Procedures [] Impressions: CT HEAD WO CONTRAST Indication: Weakness Exposure: One or more of the following individualized dose reduction techniques were utilized for this examination: 1. Automated exposure control 2. Adjustment of the mA and/or kV according to patient size 3. Use of iterative reconstruction technique. Technique: Standard imaging without intravenous contrast. Intracranial arterial calcifications. No acute intracranial hemorrhage, mass effect, midline shift or abnormal extra-axial fluid collection. Generalized atrophy. Low-density in the white matter bilaterally, a nonspecific finding, but which is commonly due to chronic small vessel ischemic disease in a patient of this age. Benign appearing basal ganglia calcifications are noted. Orbits are symmetric. No notable scalp swelling. There is complete opacification of the left maxillary sinus. The right maxillary sinus appears hypodense pneumatized. Mastoids are clear. No evidence of acute skull abnormality. IMPRESSION: 1. Chronic findings detailed above. 2. No evidence of acute intracranial hemorrhage or mass effect. Electronically signed by: Jin Olson MD (02/11/2019 8:58 PM) [facility] DICTATED and SIGNED BY: JIN OLSON MD DATE: 02/11/192057 HAND LEFT 3V, HIP LEFT 2V WITH PELVIS, HUMERUS LEFT, SHOULDER 2+V LEFT, PORTABLE CHEST 1V History: Trauma, weakness, fall. Single view AP pelvis with two-view left hip: There is an intertrochanteric fracture of the proximal left femur with impaction and varus angulation. No femoral head dislocation. Right hip appears grossly intact. Degenerative changes of lower spine. IMPRESSION: Mildly displaced intertrochanteric fracture of the left proximal femur. 3 view left hand Bone demineralization. No evidence of acute fracture or dislocation. Note is made of severe deformity of the distal ulna and radius, appears chronic. The ulna is from the distal radius. Lunate bone appears somewhat small and deformed. There are degenerative changes. IMPRESSION: 1. No evidence of acute fracture. 2. Chronic appearing changes with deformity at the distal forearm and wrist. Left shoulder There is a comminuted fracture of the humeral head and neck. Mild medial displacement of the distal fragment. No obvious dislocation at the shoulder or acromioclavicular joint. IMPRESSION: Proximal humeral fracture. Left humerus: Proximal humeral fracture again identified in the head and neck. No other fractures are seen. IMPRESSION: Proximal humeral head and neck fracture. Single view chest: Comparison with 01/20/2019. Elevation of the right lung base with what appear to be bowel loops is again identified. No evidence of pneumothorax. No large effusion. The regional skeleton appears grossly intact apart from the are mentioned proximal humeral fracture. IMPRESSION: Elevated right hemidiaphragm is again seen. No definite acute consolidation. Electronically signed by: Jin Olson MD (02/11/2019 10:00 PM) [facility] DICTATED and SIGNED BY: JIN OLSON MD DATE: 02/11/192199 Course & Med Decision Making Course & Med Decision Making Pertinent Labs and Imaging studies reviewed. (See chart for details) []88 yo f hx of htn recent uti had syncope or near syncope found to have left intertrochanteric fracture and also left humerus fracture. head ct negative. d/w tu who will follow up kieran francoisclaudette. d/w [facility]bright for admit. ceftriaxone given for uti d/w family who are in agreement. Dragon Disclaimer Dragon Disclaimer This electronic medical record was generated, in whole or in part, using a voice recognition dictation system. Departure Departure Impression: Primary Impression: UTI (urinary tract infection) Additional Impressions: Hip fracture, left Left humeral fracture Disposition: ADMITTED INPATIENT Admitting Physician: Tylor Andrade Condition: STABLE Referrals: RUBEN MCKEON MD (PCP) Problem Qualifiers TYE BOOKER MD February 11, 2019 20:40
--- NOTE | 2019-02-11 21:01 | RAD ---
CT HEAD WO CONTRAST Indication: Weakness Exposure: One or more of the following individualized dose reduction techniques were utilized for this examination: 1. Automated exposure control 2. Adjustment of the mA and/or kV according to patient size 3. Use of iterative reconstruction technique. Technique: Standard imaging without intravenous contrast. Intracranial arterial calcifications. No acute intracranial hemorrhage, mass effect, midline shift or abnormal extra-axial fluid collection. Generalized atrophy. Low-density in the white matter bilaterally, a nonspecific finding, but which is commonly due to chronic small vessel ischemic disease in a patient of this age. Benign appearing basal ganglia calcifications are noted. Orbits are symmetric. No notable scalp swelling. There is complete opacification of the left maxillary sinus. The right maxillary sinus appears hypodense pneumatized. Mastoids are clear. No evidence of acute skull abnormality. IMPRESSION: 1. Chronic findings detailed above. 2. No evidence of acute intracranial hemorrhage or mass effect. Electronically signed by: Jin Olson MD (02/11/2019 8:58 PM) [facility]
--- NOTE | 2019-02-11 22:03 | RAD ---
HAND LEFT 3V, HIP LEFT 2V WITH PELVIS, HUMERUS LEFT, SHOULDER 2+V LEFT, PORTABLE CHEST 1V History: Trauma, weakness, fall. Single view AP pelvis with two-view left hip: There is an intertrochanteric fracture of the proximal left femur with impaction and varus angulation. No femoral head dislocation. Right hip appears grossly intact. Degenerative changes of lower spine. IMPRESSION: Mildly displaced intertrochanteric fracture of the left proximal femur. 3 view left hand Bone demineralization. No evidence of acute fracture or dislocation. Note is made of severe deformity of the distal ulna and radius, appears chronic. The ulna is from the distal radius. Lunate bone appears somewhat small and deformed. There are degenerative changes. IMPRESSION: 1. No evidence of acute fracture. 2. Chronic appearing changes with deformity at the distal forearm and wrist. Left shoulder There is a comminuted fracture of the humeral head and neck. Mild medial displacement of the distal fragment. No obvious dislocation at the shoulder or acromioclavicular joint. IMPRESSION: Proximal humeral fracture. Left humerus: Proximal humeral fracture again identified in the head and neck. No other fractures are seen. IMPRESSION: Proximal humeral head and neck fracture. Single view chest: Comparison with 01/20/2019. Elevation of the right lung base with what appear to be bowel loops is again identified. No evidence of pneumothorax. No large effusion. The regional skeleton appears grossly intact apart from the are mentioned proximal humeral fracture. IMPRESSION: Elevated right hemidiaphragm is again seen. No definite acute consolidation. Electronically signed by: Jin Olson MD (02/11/2019 10:00 PM) [facility]
[2019-02-11 22:27] LABS: BASO % 0 % (0-3); EOS % 0 % (0-3); HEMATOCRIT 31.1 % (36.0-47.0); HEMOGLOBIN 10.3 g/dL (12.0-15.5); LYMPH # 1.6 x10^3/uL (1.0-4.8); LYMPH % 11 % (24-48); MEAN CORPUSCULAR HEMOGLOBIN 33 pg (25-35); MEAN CORPUSCULAR HGB CONC 33 g/dL (31-37); MEAN CORPUSCULAR VOLUME 99 fL (79-100); MONO # 1.3 x10^3/uL (0.0-1.1); MONO % 9 % (0-9); NEUT % 80 % (31-73); PLATELET COUNT 242 x10^3/uL (140-400); RED BLOOD COUNT 3.15 x10^6/uL (3.50-5.40); RED CELL DISTRIBUTION WIDTH 12.3 % (11.5-14.5); WHITE BLOOD COUNT 15.1 x10^3/uL (4.0-11.0)
[2019-02-11 22:28] LABS: BILIRUBIN,URINE NEGATIVE (NEG); CLARITY,URINE CLEAR; COLOR,URINE YELLOW; NITRITE,URINE NEGATIVE (NEG); PH,URINE 6.5; PROTEIN,URINE 30 mg/dL (NEG-TRACE)
[2019-02-11 22:35] LABS: PROTHROMBIN TIME PATIENT 12.8 SEC (11.7-14.0)
[2019-02-11 22:37] LABS: CALCIUM 8.5 mg/dL (8.5-10.1); CREATININE 1.1 mg/dL (0.6-1.0); GFR 46.8; POTASSIUM 3.9 mmol/L (3.5-5.1)
[2019-02-11 22:39] LABS: BACTERIA,URINE FEW /HPF (0-FEW); WBC,URINE 20-40 /HPF (0-4)
[2019-02-11 22:40] LABS: SQUAMOUS EPITHELIAL CELL,UR FEW /LPF
[2019-02-11 22:43] LABS: ALBUMIN 3.5 g/dL (3.4-5.0); ALBUMIN/GLOBULIN RATIO 1.1 (1.0-1.7); TOTAL BILIRUBIN 0.3 mg/dL (0.2-1.0); TOTAL PROTEIN 6.7 g/dL (6.4-8.2)
[2019-02-11] MEDS ORDERED: cefTRIAXone IV Push 1 GM VIAL. IVP ONE (23:15)
[2019-02-12] VITALS (13 sets, daily range): BP systolic 81–119; BP diastolic 44–59
[2019-02-12] MEDS: IV NORMAL SALINE 1000ML BAG 1,000 ML IV SCH ×2 (00:11→16:09)
[2019-02-12] MEDS: fentaNYL PF VIAL 100 MCG/2 ML VIAL IV PRN ×2 (03:33→15:39)
--- NOTE | 2019-02-12 08:18 | EKG ---
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
--- NOTE | 2019-02-12 08:33 | PDOC1 ---
History and Physical Date of Admission Date of Admission DATE: 02/12/19 TIME: 08:32 Source Source: Chart review, Patient History of Present Illness History of Present Illness Ms. Medina, is a 88 year old F admit from the ER after a fall. She had no prodrome, thinks she blacked out, no recollection, unsure if she had LOC, she woke up on the floor. She is having pain on her left shoulder and hip, somewhat better after IV meds given, but not acceptable. . She does not think that she hit her head and denies any head pain at this time. She states that she is currently on an antibiotic for a UTI, directed by her primary care Had a recent syncope a few weeks ago. Past Medical History Cardiovascular: No pertinent hx Pulmonary: No pertinent hx Past Surgical History Past Surgical History: No pertinent history Family History Family History: No Significant Social History Smoke: No ALCOHOL: none Drugs: None Current Problem List Problem List Problems Medical Problems: (1) Hip fracture, left Status: Acute (2) Left humeral fracture Status: Acute Current Medications Current Medications Current Medications Sodium Chloride 1,000 ml @ 1,000 mls/hr 1X ONCE IV Last administered on 02/11/19at 21:34; Start 02/11/19 at 20:30; Stop 02/11/19 at 21:29; Status DC Fentanyl Citrate (Fentanyl 2ml Vial) 50 mcg 1X ONCE IV Last administered on 02/11/19at 21:35; Start 02/11/19 at 20:30; Stop 02/11/19 at 20:33; Status DC Fentanyl Citrate (Fentanyl 2ml Vial) 50 mcg 1X ONCE IV Last administered on 02/11/19at 22:57; Start 02/11/19 at 23:00; Stop 02/11/19 at 23:01; Status DC Ceftriaxone Sodium (Rocephin) 1 gm 1X ONCE IVP Last administered on 02/11/19at 23:18; Start 02/11/19 at 23:15; Stop 02/11/19 at 23:16; Status DC Fentanyl Citrate (Fentanyl 2ml Vial) 50 mcg PRN Q1HR PRN IV PAIN Last administered on 02/12/19at 03:33; Start 02/11/19 at 23:00; Stop 02/12/19 at 22:59 Sodium Chloride 1,000 ml @ 75 mls/hr [id number] IV Last administered on 02/12/19at 00:11; Start 02/11/19 at 23:00; Stop 02/12/19 at 22:59 Active Scripts Active Bactrim Ds Tablet (Sulfamethoxazole/Trimethoprim) 1 Each Tablet 1 Tab PO BID Reglan (Metoclopramide Hcl) 10 Mg Tablet 1 Tab PO TID MDD 15 MG 14 Days Polyethylene Glycol 3350 17 Gm Powd.pack 17 Gm PO PRN DAILY PRN 14 Days Colace (Docusate Sodium) 100 Mg Capsule 100 Mg PO PRN BID PRN 10 Days Proair Hfa (Albuterol Sulfate) 8.5 Gm Hfa.aer.ad 2.5 Mg NEB PRN Q4HRS PRN 10 Days Cefdinir 300 Mg Capsule 300 Mg PO BID 10 Days Culturelle (Lactobacillus Rhamnosus Gg) 1 Each Cap.sprink 1 Cap PO BID 5 Days [Pantoprazole] 40 MG Tablet.dr 40 Mg PO DAILYAC 30 Days Reported Amlodipine-Benazepril 5-20 Mg (Amlodipine Besylate/Benazepril) 1 Each Capsule 1 Cap PO DAILY Metoprolol Tartrate 50 Mg Tablet 1 Tab PO DAILY08 Myrbetriq (Mirabegron) 50 Mg Tab.er.24h 50 Mg PO DAILY08 Allergies Allergies: Coded Allergies: Yeast (Verified Allergy, Intermediate, 09/21/18) able to eat bread ROS Review of System 6 lbs weight loss this week General: YES: Chills, Fatigue, Malaise PSYCHOLOGICAL ROS: YES: Sleep disturbances Eyes: No Blurry vision, No Decreased vision, No Double vision, No Dry eyes, No Excessive tearing, No Eye Pain, No Itchy Eyes, No Loss of vision, No Photophobia, No Scotomata, No Uses contacts, No Uses glasses, No Other HEENT: No: Heacaches, Visual Changes, Hearing change, Nasal congestion, Nasal discharge, Oral lesions, Sinus pain, Sore Throat, Epistaxis, Sneezing, Snoring, Tinnitus, Vertigo, Vocal changes, Other Respiratory: No: Cough, Hemoptysis, Orthopnea, Pleuritic Pain, Shortness of breath, SOB with excertion, Sputum Changes, Stridor, Tachypnea, Wheezing, Other Cardiovascular: No Chest Pain, No Palpitations, No Orthopnea, No Paroxysmal Noc. Dyspnea, No Edema, No Lt Headedness, No Other Gastrointestinal: No Nausea, No Vomiting, No Abdominal Pain, No Diarrhea, No Constipation, No Melena, No Hematochezia, No Other Genitourinary: No Dysuria, No Frequency, No Incontinence, No Hematuria, No Retention, No Discharge, No Urgency, No Pain, No Flank Pain, No Other, No , No , No , No , No , No , No Musculoskeletal: Yes Gait Disturbance, Yes Joint Pain, Yes Joint Stiffness Neurological: No Behavorial Changes, No Bowel/Bladder ControlChng, No Confusion, No Dizziness, No Gait Disturbance, No Headaches, No Impaired Coord/balance, No Memory Loss, No Numbness/Tingling, No Seizures, No Speech Problems, No Tremors, No Visual Changes, No Weakness, No Other Skin: Yes Dry Skin; No Eczema, No Hair Changes, No Lumps, No Mole Changes, No Mottling, No Nail Changes, No Pruritus, No Rash, No Skin Lesion Changes, No Other, No Acne Physical Exam General: Alert, Oriented X3, Cooperative, mild distress, moderate distress HEENT: Atraumatic, EOMI, Mucous membr. moist/pink Lungs: Clear to auscultation Heart: no gallops, no murmurs Abdomen: Normal bowel sounds, Soft Extremities: No clubbing, No edema, Normal pulses Skin: No breakdown Neuro: Normal speech, Sensation intact Psych/Mental Status: Mood NL Vitals Vitals Vital Signs Date Time Temp Pulse Resp B/P (MAP) Pulse Ox O2 Delivery O2 Flow Rate FiO2 02/12/19 07:00 98.5 100 16 118/59 (78) 97 Nasal Cannula 2.0 98.5 Labs Labs Laboratory Tests Test 02/11/19 22:10 02/11/19 22:15 White Blood Count 15.1 x10^3/uL (4.0-11.0) Red Blood Count 3.15 x10^6/uL (3.50-5.40) Hemoglobin 10.3 g/dL (12.0-15.5) Hematocrit 31.1 % (36.0-47.0) Mean Corpuscular Volume 99 fL (79-100) Mean Corpuscular Hemoglobin 33 pg (25-35) Mean Corpuscular Hemoglobin Concent 33 g/dL (31-37) Red Cell Distribution Width 12.3 % (11.5-14.5) Platelet Count 242 x10^3/uL (140-400) Neutrophils (%) (Auto) 80 % (31-73) Lymphocytes (%) (Auto) 11 % (24-48) Monocytes (%) (Auto) 9 % (0-9) Eosinophils (%) (Auto) 0 % (0-3) Basophils (%) (Auto) 0 % (0-3) Neutrophils # (Auto) 12.0 x10^3uL (1.8-7.7) Lymphocytes # (Auto) 1.6 x10^3/uL (1.0-4.8) Monocytes # (Auto) 1.3 x10^3/uL (0.0-1.1) Eosinophils # (Auto) 0.0 x10^3/uL (0.0-0.7) Basophils # (Auto) 0.0 x10^3/uL (0.0-0.2) Prothrombin Time 12.8 SEC (11.7-14.0) Prothromb Time International Ratio 1.0 (0.8-1.1) Sodium Level 137 mmol/L (136-145) Potassium Level 3.9 mmol/L (3.5-5.1) Chloride Level 100 mmol/L (98-107) Carbon Dioxide Level 25 mmol/L (21-32) Anion Gap 12 (6-14) Blood Urea Nitrogen 23 mg/dL (7-20) Creatinine 1.1 mg/dL (0.6-1.0) Estimated GFR (Cockcroft-Gault) 46.8 BUN/Creatinine Ratio 21 (6-20) Glucose Level 158 mg/dL (70-99) Calcium Level 8.5 mg/dL (8.5-10.1) Total Bilirubin 0.3 mg/dL (0.2-1.0) Aspartate Amino Transf (AST/SGOT) 15 U/L (15-37) Alanine Aminotransferase (ALT/SGPT) 15 U/L (14-59) Alkaline Phosphatase 104 U/L (46-116) Creatine Kinase 66 U/L (26-192) Troponin I Quantitative < 0.017 ng/mL (0.000-0.055) Total Protein 6.7 g/dL (6.4-8.2) Albumin 3.5 g/dL (3.4-5.0) Albumin/Globulin Ratio 1.1 (1.0-1.7) Urine Collection Type U cath Urine Color Yellow Urine Clarity Clear Urine pH 6.5 Urine Specific [place] 1.020 Urine Protein 30 mg/dL (NEG-TRACE) Urine Glucose (UA) Negative mg/dL (NEG) Urine Ketones (Stick) Trace mg/dL (NEG) Urine Blood Moderate (NEG) Urine Nitrite Negative (NEG) Urine Bilirubin Negative (NEG) Urine Urobilinogen Dipstick 1.0 mg/dL (0.2 mg/dL) Urine Leukocyte Esterase Large (NEG) Urine RBC 11-20 /HPF (0-2) Urine WBC 20-40 /HPF (0-4) Urine Squamous Epithelial Cells Few /LPF Urine Renal Epithelial Cells Occ /LPF Urine Bacteria Few /HPF (0-FEW) Urine Mucus Mod /LPF Laboratory Tests Test 02/11/19 22:10 02/11/19 22:15 White Blood Count 15.1 x10^3/uL (4.0-11.0) Red Blood Count 3.15 x10^6/uL (3.50-5.40) Hemoglobin 10.3 g/dL (12.0-15.5) Hematocrit 31.1 % (36.0-47.0) Mean Corpuscular Volume 99 fL (79-100) Mean Corpuscular Hemoglobin 33 pg (25-35) Mean Corpuscular Hemoglobin Concent 33 g/dL (31-37) Red Cell Distribution Width 12.3 % (11.5-14.5) Platelet Count 242 x10^3/uL (140-400) Neutrophils (%) (Auto) 80 % (31-73) Lymphocytes (%) (Auto) 11 % (24-48) Monocytes (%) (Auto) 9 % (0-9) Eosinophils (%) (Auto) 0 % (0-3) Basophils (%) (Auto) 0 % (0-3) Neutrophils # (Auto) 12.0 x10^3uL (1.8-7.7) Lymphocytes # (Auto) 1.6 x10^3/uL (1.0-4.8) Monocytes # (Auto) 1.3 x10^3/uL (0.0-1.1) Eosinophils # (Auto) 0.0 x10^3/uL (0.0-0.7) Basophils # (Auto) 0.0 x10^3/uL (0.0-0.2) Prothrombin Time 12.8 SEC (11.7-14.0) Prothromb Time International Ratio 1.0 (0.8-1.1) Sodium Level 137 mmol/L (136-145) Potassium Level 3.9 mmol/L (3.5-5.1) Chloride Level 100 mmol/L (98-107) Carbon Dioxide Level 25 mmol/L (21-32) Anion Gap 12 (6-14) Blood Urea Nitrogen 23 mg/dL (7-20) Creatinine 1.1 mg/dL (0.6-1.0) Estimated GFR (Cockcroft-Gault) 46.8 BUN/Creatinine Ratio 21 (6-20) Glucose Level 158 mg/dL (70-99) Calcium Level 8.5 mg/dL (8.5-10.1) Total Bilirubin 0.3 mg/dL (0.2-1.0) Aspartate Amino Transf (AST/SGOT) 15 U/L (15-37) Alanine Aminotransferase (ALT/SGPT) 15 U/L (14-59) Alkaline Phosphatase 104 U/L (46-116) Creatine Kinase 66 U/L (26-192) Troponin I Quantitative < 0.017 ng/mL (0.000-0.055) Total Protein 6.7 g/dL (6.4-8.2) Albumin 3.5 g/dL (3.4-5.0) Albumin/Globulin Ratio 1.1 (1.0-1.7) Urine Collection Type U cath Urine Color Yellow Urine Clarity Clear Urine pH 6.5 Urine Specific [place] 1.020 Urine Protein 30 mg/dL (NEG-TRACE) Urine Glucose (UA) Negative mg/dL (NEG) Urine Ketones (Stick) Trace mg/dL (NEG) Urine Blood Moderate (NEG) Urine Nitrite Negative (NEG) Urine Bilirubin Negative (NEG) Urine Urobilinogen Dipstick 1.0 mg/dL (0.2 mg/dL) Urine Leukocyte Esterase Large (NEG) Urine RBC 11-20 /HPF (0-2) Urine WBC 20-40 /HPF (0-4) Urine Squamous Epithelial Cells Few /LPF Urine Renal Epithelial Cells Occ /LPF Urine Bacteria Few /HPF (0-FEW) Urine Mucus Mod /LPF VTE Prophylaxis Ordered VTE Prophylaxis Devices: Contraindicated VTE Pharmacological Prophylaxi: Yes Assessment/Plan Assessment/Plan UTI syncope and fall, tele, echo, maybe CV consult, cannot check orthostatics left hip fracture and humerus fracture, CHF, chronic diastolic w w. chronic htn, cont home meds, b-johanna should not be missed ortho consult, RICKI ALEJANDRA MD February 12, 2019 08:33
[2019-02-12] MEDS ORDERED: DOCUSATE SODIUM 100 MG CAPSULE. PO PRN (08:45)
[2019-02-12] MEDS ORDERED: SALIVA STIMULANT AGENT 44ML SPRAY BOTTLE. PO PRN (08:45)
[2019-02-12] MEDS ORDERED: GABAPENTIN 300 MG CAPSULE. PO ONE (08:45)
[2019-02-12] MEDS ORDERED: ALBUTEROL SULFATE 2.5 MG/3 ML NEBU. NEB PRN (08:45)
[2019-02-12] MEDS ORDERED: IV RINGERS,LACTATED 1000ML 1,000 ML IV SCH (08:50)
[2019-02-12] MEDS: LISINOPRIL 20 MG TABLET PO SCH (09:00)
[2019-02-12] MEDS ORDERED: ONDANSETRON PF 4 MG/2 ML VIAL. IV PRN (09:00)
[2019-02-12] MEDS ORDERED: METOCLOPRAMIDE 5 MG TABLET. PO SCH (09:00)
[2019-02-12] MEDS ORDERED: POLYETHYLENE GLYCOL 3350 17 GM PACKET. PO PRN ×2 (09:00→10:45)
[2019-02-12] MEDS ORDERED: MORPHINE SULFATE 2 MG/ML VIAL. IV PRN ×2 (09:00→10:45)
[2019-02-12] MEDS: amLODIPine BESYLATE 5 MG TABLET PO SCH (09:00)
[2019-02-12] MEDS: LACTOBACILLUS RHAMNOSUS GG 1 CAPSULE. PO SCH ×2 (09:00→21:00)
[2019-02-12] MEDS ORDERED: fentaNYL PF VIAL 100 MCG/2 ML VIAL IV PRN ×3 (09:00→10:45)
[2019-02-12] MEDS ORDERED: HYDROmorphone 2 MG/ML VIAL IV PRN (09:00)
[2019-02-12] MEDS: METOPROLOL TART IMMED RELEASE 50 MG TABLET. PO SCH (09:00)
[2019-02-12] MEDS ORDERED: PHENYLEPHRINE 10 MG/ML VIAL. ONE (09:12)
[2019-02-12] MEDS ORDERED: DEXAMETHASONE SOD PHOS 4 MG/ML VIAL ONE ×3 (09:12→10:52)
[2019-02-12] MEDS ORDERED: PROPOFOL 20 ML IV ONE (09:12)
[2019-02-12] MEDS ORDERED: LIDOCAINE 2% PF 5 ML VIAL. ONE (09:12)
[2019-02-12] MEDS ORDERED: SEVOFLURANE > 120 MINUTES. IH ONE (09:13)
[2019-02-12] MEDS: cefTRIAXone IV Push 1 GM VIAL. IVP SCH (09:44)
[2019-02-12] MEDS ORDERED: HYDROcodone/APAP 7.5/325MG 1 TAB TABLET PO PRN (10:45)
[2019-02-12] MEDS ORDERED: MORPHINE SULFATE 4 MG/ML VIAL. IV PRN (10:45)
[2019-02-12] MEDS ORDERED: DEXTROSE 50% 25 GM / 50ML DISP.SYRIN. IV PRN (10:45)
[2019-02-12] MEDS ORDERED: ONDANSETRON PF 4 MG/2 ML VIAL. ONE (10:52)
--- NOTE | 2019-02-12 11:23 | NUR ---
SW following pt for anticipated dc needs. Chart reviewed. Pt lives at home alone and had used [facility] in the past. PT/OT pending. SW will await for PT/OT recommendation to assess skilled needs.
--- NOTE | 2019-02-12 12:15 | PDOC4 ---
Operative Note Operative Note Surgery: 02/12/2019 Preoperative diagnosis: Displaced left intertrochanteric hip fracture Postoperative diagnosis: Same Operative procedure: Operative reduction internal fixation left intertroc hanteric hip fracture with InterTAN intramedullary nail Surgeon: Andrea Anesthesia: Gen. Estimated blood loss: 150 mL Complications: None Operative indications: Please see my detailed operative consultation for detailed operative indications and note that we reviewed risks of possible surgery including medical or other anesthetic complications infection nonhealing bleeding nerve or blood vessel damage among others. She had and her son agree to proceed with surgical evaluation and treatment after having given informed consent. Operative text: Patient was identified procedure verified patient placed in the supine position on the [place] fracture table. After adequate amounts of general anesthesia were administered the left lower extremity was placed in traction other bony prominences were all well-padded and the fracture was reduced under fluoroscopic guidance. The left hip was prepped and draped in standard sterile fashion and after timeout was performed patient procedure identified and verified and incision was made proximal to the greater trochanteric entry point and the entry awl was placed under fluoroscopic guidance a long guidewire was placed down intramedullary the entry reamer was placed reaming carried out up to a size 14 and a size 13 130 short InterTAN nail was selected and placed a guidewire was placed up the center of the femoral head and excellent compression was carried out with the compression screw with excellent anti rotation obtained and near anatomic reduction under multiple fluoroscopic views a distal locking screw was placed in the static position and all hardware and reduction was again checked under multiple fluoroscopic views. Entry jig was removed thorough irrigation carried out normal saline solution fascia and subcutaneous closure with buried Vicryl suture skin closure with joaquín sterile dressings were applied patient was returned recovery room in stable condition having tolerated procedure well LISA SEN MD February 12, 2019 12:15
[2019-02-12] MEDS ORDERED: WARFARIN 7.5 MG TABLET. PO ONE (16:00)
[2019-02-12] MEDS: SENNOSIDES/DOCUSATE 8.6/50MG TABLET. PO SCH (16:09)
[2019-02-12] MEDS: PANTOPRAZOLE 40 MG TABLET.DR. PO SCH (16:52)
--- NOTE | 2019-02-12 23:50 | CONS ---
DATE OF CONSULTATION: 02/12/2019 ORTHOPEDIC CONSULT REASON FOR CONSULTATION: Left hip and left proximal humerus fracture. REQUESTING PHYSICIAN: Dr. Moriah Taylor. HISTORY OF PRESENT ILLNESS: The patient is an 88-year-old female who was interviewed today at her bedside with her son who provides some of her history. She was admitted through the Emergency Department after a fall at home. She really does not have much recollection of the fall and thinks she might have blacked out, woke up on the floor with left hip and shoulder pain. She had been treated over the past few weeks for recurrent urinary tract infection and was actually hospitalized twice apparently. She was on some antibiotics for the urinary tract infection and then still did not feel well, was brought in to the hospital again and has been ongoing treatment for the urinary tract infection. She is unsure whether that may have affected her and made her just feel dizzy and not well, if that had been in effect previously. She does not think she had any head injury, denies any headache, neck pain and had a previous syncopal episode she thinks may be related to the urinary tract infection. She is otherwise really pretty healthy. PAST MEDICAL HISTORY: Significant for the urinary tract infections as noted above. No pertinent surgical history. FAMILY HISTORY: She denies any family history. SOCIAL HISTORY: Ambulates independently prior to this injury. Denies smoking, alcohol or drug use. MEDICATIONS: List is reviewed. ALLERGIES: SHE LISTS ALLERGY TO YEAST, but is able to eat bread when it is baked. REVIEW OF SYSTEMS: Indicates that she has lost about 6 pounds this week. She is positive for the urinary tract infection symptoms, general malaise, the blacking out episode and previous syncopal episode as described above. Denies any chest pain, shortness of breath, radiating pain, numbness and weakness in the extremities, change in bowel or bladder function, no neck pain, headaches or visual changes currently. PHYSICAL EXAMINATION: GENERAL: A pleasant, cooperative 88-year-old female, very slight build, no acute distress, calm, cooperative, resting comfortably in bed. EXTREMITIES: The left upper extremity is in a sling. She has tenderness over the proximal humerus on palpation. Her range of motion of the left shoulder is likewise not tested. Skin overlying is intact. She has normal active range of motion of the right shoulder, elbow and wrist. Normal alignment, stability of the left elbow and wrist. Grasp strength is intact. On examination, the hip is shortened and internally rotated. She has pain with any range of motion or palpation over the left hip. Normal examination of the right hip, bilateral knees and ankles. Extremities, overall intact motor function, distal pulses sensation, reflexes in both upper and lower extremities throughout. IMAGING STUDIES: Show AP of the pelvis, lateral left hip, which shows a displaced intertrochanteric hip fracture. X-rays of the humerus show an impacted proximal humerus fracture with about 50% displacement on a single view. IMPRESSION: 1. Left intertrochanteric hip fracture. 2. Impacted left proximal humerus fracture with slight displacement. TREATMENT PLAN: I went over with the patient and her son the significance of the hip fracture, the fact that we could treat this nonoperatively, but there are associated immobility related complications expected. We went over the recommended operative treatment and stabilization of the fracture that would allow her to get up and around and bear some weight on this depending on the stability. I overall recommend nonoperative treatment at present for her shoulder. I did particularly point out to her son on x-rays that it is not absolutely ideally aligned; however, I would generally pursue nonoperative treatment for the shoulder unless it is nonfunctional or goes further out of place in which case that would be an option later. We did talk about the possibility of fixing it now; however, just in her somewhat weakened state, I would like to keep our biggest priorities first and not perhaps stress her with additional surgery if we can initially at least treat this nonoperatively. Both patient and son agreed with this rationale and provided informed consent with proceeding with surgery, which will be planned today as soon as operating room is available. LISA SEN MD DR: KAZ/cinthya JOB#: [id number] / [id number]
[2019-02-13] VITALS (21 sets, daily range): BP systolic 72–129; BP diastolic 36–69
[2019-02-13] MEDS: oxyCODONE/APAP 5/325 1 TAB TABLET PO PRN (02:01)
[2019-02-13] MEDS: IV NORMAL SALINE 1000ML BAG 1,000 ML IV SCH (03:56)
[2019-02-13 05:49] LABS: BASO % 0 % (0-3); EOS % 0 % (0-3); LYMPH # 1.3 x10^3/uL (1.0-4.8); LYMPH % 17 % (24-48); MEAN CORPUSCULAR HEMOGLOBIN 35 pg (25-35); MEAN CORPUSCULAR HGB CONC 34 g/dL (31-37); MEAN CORPUSCULAR VOLUME 101 fL (79-100); MONO # 1.4 x10^3/uL (0.0-1.1); MONO % 18 % (0-9); NEUT # 5.2 x10^3uL (1.8-7.7); NEUT % 66 % (31-73); PLATELET COUNT 127 x10^3/uL (140-400); RED BLOOD COUNT 1.37 x10^6/uL (3.50-5.40); RED CELL DISTRIBUTION WIDTH 12.4 % (11.5-14.5)
[2019-02-13 05:53] LABS: HEMATOCRIT 13.9 % (36.0-47.0); HEMOGLOBIN 4.7 g/dL (12.0-15.5)
[2019-02-13] MEDS ORDERED: MAGNESIUM HYDROXIDE 2,400 MG/30 ML ORAL.SUSP. PO PRN (06:00)
[2019-02-13 06:29] LABS: ALBUMIN 1.7 g/dL (3.4-5.0); ALBUMIN/GLOBULIN RATIO 0.9 (1.0-1.7); GFR 52.2; POTASSIUM 3.9 mmol/L (3.5-5.1); TOTAL BILIRUBIN 0.1 mg/dL (0.2-1.0); TOTAL PROTEIN 3.7 g/dL (6.4-8.2)
[2019-02-13 06:38] LABS: CALCIUM 5.8 mg/dL (8.5-10.1)
[2019-02-13] MEDS ORDERED: CALCIUM GLUCONATE 1,000 MG in IV DEXTROSE 5% 100ML 100 ML IV ONE (07:00)
[2019-02-13] MEDS: PANTOPRAZOLE 40 MG TABLET.DR. PO SCH (07:30)
[2019-02-13] MEDS: METOPROLOL TART IMMED RELEASE 50 MG TABLET. PO SCH (08:00)
[2019-02-13] MEDS ORDERED: IV NORMAL SALINE 500ML BAG 500 ML IV ONE (09:00)
[2019-02-13] MEDS: amLODIPine BESYLATE 5 MG TABLET PO SCH (09:00)
[2019-02-13] MEDS: LACTOBACILLUS RHAMNOSUS GG 1 CAPSULE. PO SCH ×2 (09:00→22:31)
[2019-02-13] MEDS: LISINOPRIL 20 MG TABLET PO SCH (09:00)
[2019-02-13] MEDS: SENNOSIDES/DOCUSATE 8.6/50MG TABLET. PO SCH (09:00)
--- NOTE | 2019-02-13 09:29 | EKG ---
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
--- NOTE | 2019-02-13 14:15 | PDOC ---
PROGRESS NOTES Chief Complaint Chief Complaint marked anemia, post-op this AM, expected, 2 u PRBC UTI syncope and fall, tele, echo, maybe CV consult, cannot check orthostatics left hip fracture and humerus fracture, CHF, chronic diastolic w w. chronic htn, cont home meds, b-johanna should not be missed History of Present Illness History of Present Illness relative hypotension, bold her BP meds as able, 2 u PRBC then recheck, hip looks OK, no additional bruising, some LE edema, will caution with fluids due to age Vitals Vitals Vital Signs Date Time Temp Pulse Resp B/P (MAP) Pulse Ox O2 Delivery O2 Flow Rate FiO2 02/13/19 14:08 98.5 90 129/36 98.5 02/13/19 11:00 16 96 Nasal Cannula 2.0 Physical Exam General: Alert, Oriented X3, Cooperative, mild distress, moderate distress Abdomen: Normal bowel sounds, Soft Extremities: No clubbing, Normal pulses, Other (1+ BLE edema, ankle more than pedal) Skin: No breakdown Labs LABS Laboratory Tests Test 02/13/19 05:35 White Blood Count 8.0 x10^3/uL (4.0-11.0) Red Blood Count 1.37 x10^6/uL (3.50-5.40) Hemoglobin 4.7 g/dL (12.0-15.5) Hematocrit 13.9 % (36.0-47.0) Mean Corpuscular Volume 101 fL (79-100) Mean Corpuscular Hemoglobin 35 pg (25-35) Mean Corpuscular Hemoglobin Concent 34 g/dL (31-37) Red Cell Distribution Width 12.4 % (11.5-14.5) Platelet Count 127 x10^3/uL (140-400) Neutrophils (%) (Auto) 66 % (31-73) Lymphocytes (%) (Auto) 17 % (24-48) Monocytes (%) (Auto) 18 % (0-9) Eosinophils (%) (Auto) 0 % (0-3) Basophils (%) (Auto) 0 % (0-3) Neutrophils # (Auto) 5.2 x10^3uL (1.8-7.7) Lymphocytes # (Auto) 1.3 x10^3/uL (1.0-4.8) Monocytes # (Auto) 1.4 x10^3/uL (0.0-1.1) Eosinophils # (Auto) 0.0 x10^3/uL (0.0-0.7) Basophils # (Auto) 0.0 x10^3/uL (0.0-0.2) Sodium Level 140 mmol/L (136-145) Potassium Level 3.9 mmol/L (3.5-5.1) Chloride Level 111 mmol/L (98-107) Carbon Dioxide Level 18 mmol/L (21-32) Anion Gap 11 (6-14) Blood Urea Nitrogen 27 mg/dL (7-20) Creatinine 1.0 mg/dL (0.6-1.0) Estimated GFR (Cockcroft-Gault) 52.2 BUN/Creatinine Ratio 27 (6-20) Glucose Level 111 mg/dL (70-99) Calcium Level 5.8 mg/dL (8.5-10.1) Total Bilirubin 0.1 mg/dL (0.2-1.0) Aspartate Amino Transf (AST/SGOT) 11 U/L (15-37) Alanine Aminotransferase (ALT/SGPT) 11 U/L (14-59) Alkaline Phosphatase 43 U/L (46-116) Total Protein 3.7 g/dL (6.4-8.2) Albumin 1.7 g/dL (3.4-5.0) Albumin/Globulin Ratio 0.9 (1.0-1.7) Review of Systems Review of Systems weakness, some nausea, pain is OK, almost none this AM Assessment and Plan Assessmemt and Plan Problems Medical Problems: (1) Hip fracture, left Status: Acute (2) Left humeral fracture Status: Acute Comment Review of Relevant I have reviewed the following items baudilio (where applicable) has been applied. Labs Laboratory Tests Test 02/11/19 22:10 02/11/19 22:15 02/13/19 05:35 White Blood Count 15.1 x10^3/uL (4.0-11.0) 8.0 x10^3/uL (4.0-11.0) Red Blood Count 3.15 x10^6/uL (3.50-5.40) 1.37 x10^6/uL (3.50-5.40) Hemoglobin 10.3 g/dL (12.0-15.5) 4.7 g/dL (12.0-15.5) Hematocrit 31.1 % (36.0-47.0) 13.9 % (36.0-47.0) Mean Corpuscular Volume 99 fL (79-100) 101 fL (79-100) Mean Corpuscular Hemoglobin 33 pg (25-35) 35 pg (25-35) Mean Corpuscular Hemoglobin Concent 33 g/dL (31-37) 34 g/dL (31-37) Red Cell Distribution Width 12.3 % (11.5-14.5) 12.4 % (11.5-14.5) Platelet Count 242 x10^3/uL (140-400) 127 x10^3/uL (140-400) Neutrophils (%) (Auto) 80 % (31-73) 66 % (31-73) Lymphocytes (%) (Auto) 11 % (24-48) 17 % (24-48) Monocytes (%) (Auto) 9 % (0-9) 18 % (0-9) Eosinophils (%) (Auto) 0 % (0-3) 0 % (0-3) Basophils (%) (Auto) 0 % (0-3) 0 % (0-3) Neutrophils # (Auto) 12.0 x10^3uL (1.8-7.7) 5.2 x10^3uL (1.8-7.7) Lymphocytes # (Auto) 1.6 x10^3/uL (1.0-4.8) 1.3 x10^3/uL (1.0-4.8) Monocytes # (Auto) 1.3 x10^3/uL (0.0-1.1) 1.4 x10^3/uL (0.0-1.1) Eosinophils # (Auto) 0.0 x10^3/uL (0.0-0.7) 0.0 x10^3/uL (0.0-0.7) Basophils # (Auto) 0.0 x10^3/uL (0.0-0.2) 0.0 x10^3/uL (0.0-0.2) Prothrombin Time 12.8 SEC (11.7-14.0) Prothromb Time International Ratio 1.0 (0.8-1.1) Sodium Level 137 mmol/L (136-145) 140 mmol/L (136-145) Potassium Level 3.9 mmol/L (3.5-5.1) 3.9 mmol/L (3.5-5.1) Chloride Level 100 mmol/L (98-107) 111 mmol/L (98-107) Carbon Dioxide Level 25 mmol/L (21-32) 18 mmol/L (21-32) Anion Gap 12 (6-14) 11 (6-14) Blood Urea Nitrogen 23 mg/dL (7-20) 27 mg/dL (7-20) Creatinine 1.1 mg/dL (0.6-1.0) 1.0 mg/dL (0.6-1.0) Estimated GFR (Cockcroft-Gault) 46.8 52.2 BUN/Creatinine Ratio 21 (6-20) 27 (6-20) Glucose Level 158 mg/dL (70-99) 111 mg/dL (70-99) Calcium Level 8.5 mg/dL (8.5-10.1) 5.8 mg/dL (8.5-10.1) Total Bilirubin 0.3 mg/dL (0.2-1.0) 0.1 mg/dL (0.2-1.0) Aspartate Amino Transf (AST/SGOT) 15 U/L (15-37) 11 U/L (15-37) Alanine Aminotransferase (ALT/SGPT) 15 U/L (14-59) 11 U/L (14-59) Alkaline Phosphatase 104 U/L (46-116) 43 U/L (46-116) Creatine Kinase 66 U/L (26-192) Troponin I Quantitative < 0.017 ng/mL (0.000-0.055) Total Protein 6.7 g/dL (6.4-8.2) 3.7 g/dL (6.4-8.2) Albumin 3.5 g/dL (3.4-5.0) 1.7 g/dL (3.4-5.0) Albumin/Globulin Ratio 1.1 (1.0-1.7) 0.9 (1.0-1.7) Urine Collection Type U cath Urine Color Yellow Urine Clarity Clear Urine pH 6.5 Urine Specific [place] 1.020 Urine Protein 30 mg/dL (NEG-TRACE) Urine Glucose (UA) Negative mg/dL (NEG) Urine Ketones (Stick) Trace mg/dL (NEG) Urine Blood Moderate (NEG) Urine Nitrite Negative (NEG) Urine Bilirubin Negative (NEG) Urine Urobilinogen Dipstick 1.0 mg/dL (0.2 mg/dL) Urine Leukocyte Esterase Large (NEG) Urine RBC 11-20 /HPF (0-2) Urine WBC 20-40 /HPF (0-4) Urine Squamous Epithelial Cells Few /LPF Urine Renal Epithelial Cells Occ /LPF Urine Bacteria Few /HPF (0-FEW) Urine Mucus Mod /LPF Laboratory Tests Test 02/13/19 05:35 White Blood Count 8.0 x10^3/uL (4.0-11.0) Red Blood Count 1.37 x10^6/uL (3.50-5.40) Hemoglobin 4.7 g/dL (12.0-15.5) Hematocrit 13.9 % (36.0-47.0) Mean Corpuscular Volume 101 fL (79-100) Mean Corpuscular Hemoglobin 35 pg (25-35) Mean Corpuscular Hemoglobin Concent 34 g/dL (31-37) Red Cell Distribution Width 12.4 % (11.5-14.5) Platelet Count 127 x10^3/uL (140-400) Neutrophils (%) (Auto) 66 % (31-73) Lymphocytes (%) (Auto) 17 % (24-48) Monocytes (%) (Auto) 18 % (0-9) Eosinophils (%) (Auto) 0 % (0-3) Basophils (%) (Auto) 0 % (0-3) Neutrophils # (Auto) 5.2 x10^3uL (1.8-7.7) Lymphocytes # (Auto) 1.3 x10^3/uL (1.0-4.8) Monocytes # (Auto) 1.4 x10^3/uL (0.0-1.1) Eosinophils # (Auto) 0.0 x10^3/uL (0.0-0.7) Basophils # (Auto) 0.0 x10^3/uL (0.0-0.2) Sodium Level 140 mmol/L (136-145) Potassium Level 3.9 mmol/L (3.5-5.1) Chloride Level 111 mmol/L (98-107) Carbon Dioxide Level 18 mmol/L (21-32) Anion Gap 11 (6-14) Blood Urea Nitrogen 27 mg/dL (7-20) Creatinine 1.0 mg/dL (0.6-1.0) Estimated GFR (Cockcroft-Gault) 52.2 BUN/Creatinine Ratio 27 (6-20) Glucose Level 111 mg/dL (70-99) Calcium Level 5.8 mg/dL (8.5-10.1) Total Bilirubin 0.1 mg/dL (0.2-1.0) Aspartate Amino Transf (AST/SGOT) 11 U/L (15-37) Alanine Aminotransferase (ALT/SGPT) 11 U/L (14-59) Alkaline Phosphatase 43 U/L (46-116) Total Protein 3.7 g/dL (6.4-8.2) Albumin 1.7 g/dL (3.4-5.0) Albumin/Globulin Ratio 0.9 (1.0-1.7) Medications Current Medications Sodium Chloride 1,000 ml @ 1,000 mls/hr 1X ONCE IV Last administered on 02/11/19 21:34; Start 02/11/19 at 20:30; Stop 02/11/19 at 21:29; Status DC Fentanyl Citrate (Fentanyl 2ml Vial) 50 mcg 1X ONCE IV Last administered on 02/11/19at 21:35; Start 02/11/19 at 20:30; Stop 02/11/19 at 20:33; Status DC Fentanyl Citrate (Fentanyl 2ml Vial) 50 mcg 1X ONCE IV Last administered on 02/11/19at 22:57; Start 02/11/19 at 23:00; Stop 02/11/19 at 23:01; Status DC Ceftriaxone Sodium (Rocephin) 1 gm 1X ONCE IVP Last administered on 02/11/19at 23:18; Start 02/11/19 at 23:15; Stop 02/11/19 at 23:16; Status DC Fentanyl Citrate (Fentanyl 2ml Vial) 50 mcg PRN Q1HR PRN IV PAIN Last administered on 02/12/19at 15:39; Start 02/11/19 at 23:00; Stop 02/12/19 at 22:59; Status DC Sodium Chloride 1,000 ml @ 100 mls/hr Q10H IV Last administered on 02/13/19at 03:56; Start 02/11/19 at 23:00; Stop 02/12/19 at 22:59; Status DC Ceftriaxone Sodium (Rocephin) 1 gm Q24H IVP Last administered on 02/12/19at 09:44; Start 02/12/19 at 21:00 Saliva Substitute (Biotene Moisturizing Mouth) 2 spray PRN Q15MIN PRN PO DRY MOUTH; Start 02/12/19 at 08:45 Oxycodone/ Acetaminophen (Percocet 5/325) 1 tab PRN Q4HRS PRN PO PAIN Last administered on 02/13/19 02:01; Start 02/12/19 at 08:45 Albuterol Sulfate (Ventolin Neb Soln) 2.5 mg PRN Q4HRS PRN NEB SHORTNESS OF BREATH; Start 02/12/19 at 08:45 Docusate Sodium (Colace) 100 mg PRN BID PRN PO CONSTIPATION (1st Choice); S tart 02/12/19 at 08:45 Lactobacillus Rhamnosus (Culturelle) 1 cap BID PO ; Start 02/12/19 at 09:00 Metoclopramide HCl (Reglan) 5 mg TIDBFRMEAL PO ; Start 02/12/19 at 09:00; Stop 02/12/19 at 09:08; Status DC Metoprolol Tartrate (Lopressor) 50 mg DAILY08 PO ; Start 02/12/19 at 09:00 Amlodipine Besylate (Norvasc) 5 mg DAILY PO ; Start 02/12/19 at 09:00 Polyethylene Glycol (miraLAX PACKET) 17 gm PRN DAILY PRN PO Constipation (3rd Choice); Start 02/12/19 at 09:00 Pantoprazole Sodium (Protonix) 40 mg DAILYAC PO Last administered on 02/12/19at 16:52; Start 02/12/19 at 16:30 Gabapentin (Neurontin) 300 mg 1X ONCE PO Last administered on 02/12/19at 09:52; Start 02/12/19 at 08:45; Stop 02/12/19 at 09:09; Status DC Ondansetron HCl (Zofran) 4 mg PRN Q6HRS PRN IV NAUSEA/VOMITING; Start 02/12/19 at 09:00; Stop 02/13/19 at 08:59; Status DC Fentanyl Citrate (Fentanyl 2ml Vial) 25 mcg PRN Q5MIN PRN IV MILD PAIN; Start 02/12/19 at 09:00; Stop 02/13/19 at 08:59; Status DC Fentanyl Citrate (Fentanyl 2ml Vial) 50 mcg PRN Q5MIN PRN IV MODERATE TO SEVERE PAIN; Start 02/12/19 at 09:00; Stop 02/13/19 at 08:59; Status DC Morphine Sulfate (Morphine Sulfate) 1 mg PRN Q10MIN PRN IV SEVERE PAIN; Start 02/12/19 at 09:00; Stop 02/12/19 at 20:00; Status DC Ringer's Solution 1,000 ml @ 30 mls/hr Q24H IV ; Start 02/12/19 at 08:50; Stop 02/12/19 at 20:02; Status DC Hydromorphone HCl (Dilaudid) 0.5 mg PRN Q10MIN PRN IV SEV PAIN, Second choice; Start 02/12/19 at 09:00; Stop 02/12/19 at 20:00; Status DC Lisinopril (Prinivil) 20 mg DAILY PO ; Start 02/12/19 at 09:00 Dexamethasone Sodium Phosphate (Decadron) 4 mg STK-MED ONCE .ROUTE ; Start 02/12/19 at 09:12; Stop 02/12/19 at 09:13; Status DC Propofol 20 ml @ As Directed STK-MED ONCE IV ; Start 02/12/19 at 09:12; Stop 02/12/19 at 09:13; Status DC Lidocaine HCl (Lidocaine Pf 2% Vial) 5 ml STK-MED ONCE .ROUTE ; Start 02/12/19 at 09:12; Stop 02/12/19 at 09:13; Status DC Phenylephrine HCl ([place]-Synephrine Inj) 10 mg STK-MED ONCE .ROUTE ; Start 02/12/19 at 09:12; Stop 02/12/19 at 09:13; Status DC Sevoflurane (Ultane) 90 ml STK-MED ONCE IH ; Start 02/12/19 at 09:13; Stop 02/12/19 at 09:14; Status DC Dexamethasone Sodium Phosphate (Decadron) 4 mg STK-MED ONCE .ROUTE ; Start 02/12/19 at 09:13; Stop 02/12/19 at 09:14; Status DC Cefazolin Sodium 50 ml @ As Directed STK-MED ONCE IV ; Start 02/12/19 at 10:26; Stop 02/12/19 at 10:27; Status DC Oxycodone HCl (Roxicodone) 5 mg PRN Q3HRS PRN PO PAIN; Start 02/12/19 at 10:45 Morphine Sulfate (Morphine Sulfate) 2 mg PRN Q1HR PRN IV PAIN; Start 02/12/19 at 10:45 Fentanyl Citrate (Fentanyl 2ml Vial) 25 mcg PRN Q1HR PRN IV PAIN; Start 02/12/19 at 10:45 Senna/Docusate Sodium (Senna Plus) 1 tab DAILY PO Last administered on 02/12/19at 16:09; Start 02/12/19 at 13:00 Polyethylene Glycol (miraLAX PACKET) 17 gm PRN DAILY PRN PO CONSTIPATION; Start 02/12/19 at 10:45 Ondansetron HCl (Zofran) 4 mg PRN Q4HRS PRN IV NAUSEA/VOMITING; Start 02/12/19 at 10:45 Warfarin Sodium (Coumadin) 7.5 mg 1X ONCE PO Last administered on 02/12/19at 16:09; Start 02/12/19 at 16:00; Stop 02/12/19 at 16:01; Status DC Warfarin Sodium (Coumadin Per Pharmacy) 1 each PRN DAILY PRN MC SEE COMMENTS; Start 02/13/19 at 10:45 Magnesium Hydroxide (Milk Of Magnesia) 2,400 mg 1X PRN PRN PO CONSTIPATION; Start 02/13/19 at 06:00; Stop 02/14/19 at 05:59 Bisacodyl (Dulcolax Supp) 10 mg 1X PRN PRN [place] CONSTIPATION; Start 02/13/19 at 16:00; Stop 02/14/19 at 15:59 Acetaminophen/ Hydrocodone Bitart (Lortab 7.5/325) 1 tab PRN Q4HRS PRN PO PAIN; Start 02/12/19 at 10:45 Morphine Sulfate (Morphine Sulfate) 4 mg PRN Q2HR PRN IV PAIN; Start 02/12/19 at 10:45 Acetaminophen/ Hydrocodone Bitart (Lortab 7.5/325) 2 tab PRN Q4HRS PRN PO PAIN; Start 02/12/19 at 10:45 Dextrose (Dextrose 50%-Water Syringe) 12.5 gm PRN Q15MIN PRN IV SEE COMMENTS; Start 02/12/19 at 10:45 Ondansetron HCl (Zofran) 4 mg STK-MED ONCE .ROUTE ; Start 02/12/19 at 10:52; Stop 02/12/19 at 10:53; Status DC Dexamethasone Sodium Phosphate (Decadron) 4 mg STK-MED ONCE .ROUTE ; Start 02/12/19 at 10:52; Stop 02/12/19 at 10:53; Status DC Calcium Gluconate 1000 mg/Dextrose 110 ml @ 220 mls/hr 1X ONCE IV Last administered on 02/13/19at 07:13; Start 02/13/19 at 07:00; Stop 02/13/19 at 07:29; Status DC Sodium Chloride 500 ml @ 500 mls/hr 1X ONCE IV Last administered on 02/13/19at 09:00; Start 02/13/19 at 09:00; Stop 02/13/19 at 09:59; Status DC Active Scripts Active Bactrim Ds Tablet (Sulfamethoxazole/Trimethoprim) 1 Each Tablet 1 Tab PO BID Reglan (Metoclopramide Hcl) 10 Mg Tablet 1 Tab PO TID MDD 15 MG 14 Days Polyethylene Glycol 3350 17 Gm Powd.pack 17 Gm PO PRN DAILY PRN 14 Days Colace (Docusate Sodium) 100 Mg Capsule 100 Mg PO PRN BID PRN 10 Days Proair Hfa (Albuterol Sulfate) 8.5 Gm Hfa.aer.ad 2.5 Mg NEB PRN Q4HRS PRN 10 Days Cefdinir 300 Mg Capsule 300 Mg PO BID 10 Days Culturelle (Lactobacillus Rhamnosus Gg) 1 Each Cap.sprink 1 Cap PO BID 5 Days [Pantoprazole] 40 MG Tablet.dr 40 Mg PO DAILYAC 30 Days Reported Amlodipine-Benazepril 5-20 Mg (Amlodipine Besylate/Benazepril) 1 Each Capsule 1 Cap PO DAILY Metoprolol Tartrate 50 Mg Tablet 1 Tab PO DAILY08 Myrbetriq (Mirabegron) 50 Mg Tab.er.24h 50 Mg PO DAILY08 Vitals/I & O Vital Sign - Last 24 Hours 5/01/2802/12/19 02/12/19 02/12/19 14:30 14:45 15:00 15:15 Pulse 102 103 97 107 B/P (MAP) 108/59 (75) 95/57 (70) 105/56 (72) 92/57 (69) Pulse Ox 97 O2 Delivery Nasal Cannula O2 Flow Rate 2.0 02/12/19 02/12/19/01/2802/12/19 15:39 15:45 16:09 16:15 Pulse 104 94 Resp 16 14 B/P (MAP) 109/58 (75) 81/48 (59) Pulse Ox 95 95 O2 Delivery Nasal Cannula Nasal Cannula O2 Flow Rate 2.0 2.0 02/12/19 02/12/19 02/12/19 02/12/19 17:15 18:26 19:10 19:30 Temp 98.1 98.1 Pulse 82 94 98 Resp 18 B/P (MAP) 94/56 (69) 86/50 (62) 106/55 (72) Pulse Ox 100 100 97 O2 Delivery Nasal Cannula Nasal Cannula Nasal Cannula Nasal Cannula O2 Flow Rate 2.0 2.0 2.0 2.0 02/12/19 02/13/19 02/13/19 02/13/19 23:10 02:01 03:00 03:10 Temp 97.1 99.0 97.1 99.0 Pulse 91 95 Resp 18 18 13 18 B/P (MAP) 97/44 (61) 90/42 (58) Pulse Ox 97 95 O2 Delivery Nasal Cannula Nasal Cannula Nasal Cannula O2 Flow Rate 2.0 2.0 2.0 2.0 02/13/19 02/13/19 02/13/19 02/13/19 07:00 08:00 08:00 09:00 Temp 99.2 99.2 Pulse 96 91 91 Resp 16 B/P (MAP) 108/40 (62) 111/47 111/47 Pulse Ox 97 O2 Delivery Nasal Cannula Nasal Cannula O2 Flow Rate 2.0 2.0 02/13/19 02/13/19 02/13/19 02/13/19 09:00 09:15 09:30 09:45 Temp 98.1 98.6 98.4 98.1 98.6 98.4 Pulse 91 104 91 91 B/P (MAP) 111/47 98/39 90/37 103/43 5/5/19 5/5/19 5/5/19 5/5/19 10:00 10:15 10:30 10:45 Temp 98.5 98.5 98.6 98.4 98.5 98.5 98.6 98.4 Pulse 85 87 91 91 B/P (MAP) 99/37 106/43 111/47 104/46 02/13/19 02/13/19 02/13/19 02/13/19 11:00 11:00 12:36 12:55 Temp 98.3 98.4 98.6 98.5 98.3 98.4 98.6 98.5 Pulse 94 92 104 100 Resp 16 B/P (MAP) 108/45 (66) 117/54 103/57 111/44 Pulse Ox 96 O2 Delivery Nasal Cannula O2 Flow Rate 2.0 02/13/19 02/13/19 02/13/19 02/13/19 12:58 13:00 13:15 13:30 Temp 98.4 98.4 Pulse 100 B/P (MAP) 111/44 88/43 (58) 72/48 (56) 83/47 (59) 02/13/19 14:08 Temp 98.5 98.5 Pulse 90 B/P (MAP) 129/36 Intake and Output 02/12/19 02/12/19 02/13/19 15:00 23:00 07:00 Intake Total 0 ml 450 ml 1955 ml Output Total 150 ml Balance -150 ml 450 ml 1955 ml RICKI ALEJANDRA MD February 13, 2019 14:15
[2019-02-13] MEDS: oxyCODONE IR 5 MG TABLET PO PRN (15:04)
--- NOTE | 2019-02-13 15:37 | NUR ---
Pharmacy Warfarin Dosing Note S:Pharmacy consulted to assist with anticoagulation therapy started 02/12/19 with target INR: 1.6 - 2.5 O:GILSON CUEVA V is a 88 year old F with Hip Fracture LABS: Last INR: 1.0 5/3 Last HGB: 4.7 Last HCT: 13.9 Last PLT: 127 Last dose of 7.5 mg given on 02/12/19 at 1700 Previous Regimen: Vitamin K given: Drug Interaction Changes: Ongoing Drug Interactions: A:INR of 1.0 /3 is below desired range. Target range for this patient is: 1.6 - 2.5 P: Warfarin dose: 2 mg Today at 1600 Bridge Therapy: Next INR due TOMORROW. Pharmacy anticoagulation service will continue to follow. LINDA HENRY Melody, 02/13/19 [id number]
[2019-02-13] MEDS ORDERED: WARFARIN 2 MG TABLET. PO ONE (16:00)
[2019-02-13] MEDS ORDERED: BISACODYL 10 MG SUPP.RECT. PR PRN (16:00)
[2019-02-13] MEDS ORDERED: WARFARIN 3 MG TABLET. PO ONE (16:00)
[2019-02-13] MEDS: HYDROcodone/APAP 7.5/325MG 1 TAB TABLET PO PRN (18:05)
[2019-02-13 18:55] LABS: HEMATOCRIT 24.9 % (36.0-47.0); HEMOGLOBIN 8.5 g/dL (12.0-15.5)
[2019-02-13] MEDS: cefTRIAXone IV Push 1 GM VIAL. IVP SCH (22:26)
[2019-02-14] MEDS: HYDROcodone/APAP 7.5/325MG 1 TAB TABLET PO PRN ×2 (02:01→09:47)
--- NOTE | 2019-02-14 03:13 | NUR ---
When changing pt, RN noted that L leg turning inward and crossing over midline. Abductor pillow obtained and placed between legs. Pt denied discomfort with intervention. Better alignment obtained with pillow in place. Will continue to monitor.
[2019-02-14 03:54] VITALS: BP 125/47
[2019-02-14 04:31] LABS: HEMATOCRIT 23.4 % (36.0-47.0)
[2019-02-14 05:12] LABS: PROTHROMBIN TIME PATIENT 13.8 SEC (11.7-14.0)
[2019-02-14 07:05] VITALS: BP 133/74
[2019-02-14] MEDS: SENNOSIDES/DOCUSATE 8.6/50MG TABLET. PO SCH (08:19)
[2019-02-14] MEDS: PANTOPRAZOLE 40 MG TABLET.DR. PO SCH (08:19)
[2019-02-14] MEDS: LACTOBACILLUS RHAMNOSUS GG 1 CAPSULE. PO SCH ×2 (08:19→20:26)
[2019-02-14] MEDS: METOPROLOL TART IMMED RELEASE 50 MG TABLET. PO SCH (08:20)
[2019-02-14] MEDS: amLODIPine BESYLATE 5 MG TABLET PO SCH (08:20)
[2019-02-14] MEDS: LISINOPRIL 20 MG TABLET PO SCH (08:20)
[2019-02-14] MEDS ORDERED: CALCIUM GLUCONATE 1,000 MG/10 ML VIAL. IVP ONE (08:30)
[2019-02-14] MEDS ORDERED: CALCIUM CHLORIDE 1,000 MG in IV DEXTROSE 5% 50 ML IV ONE (09:00)
[2019-02-14] MEDS ORDERED: CALCIUM GLUCONATE 1,000 MG in IV DEXTROSE 5% 100ML 100 ML IV ONE (09:00)
--- NOTE | 2019-02-14 10:30 | NUR ---
Pharmacy Warfarin Dosing Note S: Pharmacy consulted to assist with anticoagulation therapy started 02/12/19 O: GILSON CUEVA V is a 88 year old F with a Hip Fracture LABS: Last INR: 1.1 Last HGB: 8.0 Last HCT: 23.4 Last PLT: 127 Last dose of 2 mg given on 02/13/19 at 1800 Vitamin K given: N A:INR of 1.1 is below desired range. Patient has received warfarin 7.5 mg x 1 dose (02/12) and 2 mg x 1 dose (02/13). Patient's hemoglobin has improved with transfusion. P: Warfarin dose: 5 mg Today at 1600 Bridge Therapy: None Next INR due 02/15/19 Pharmacy anticoagulation service will continue to follow. VARSHA [facility], 02/14/19 [id number]
--- NOTE | 2019-02-14 11:00 | NUR ---
SW following. Awaiting on PT/OT eval to assess skilled needs.
--- NOTE | 2019-02-14 11:05 | PDOC ---
PROGRESS NOTES Chief Complaint Chief Complaint acute Precipitous drop in hemoglobin postop status post transfusion Left humeral fracture Mechanical fall Syncope Hypocalcemia CHF, chronic diastolic chronic htn gen weakness History of Present Illness History of Present Illness she has no complaints relative hypotension, symptomatic, bucket at bedside She looks pale but hemoglobin up to 8 after transfusion 2 pack for hemoglobin 4 post op She has a left arm sling She is agreeable to rehabilitation if needed Active calcium is still low despite hypoalbuminemia Plan Calcium gluconate 1 g now then recheck calcium 12 noon Social work for SNU screen-most likely she will need snu and she is agreeable [employer] discharge tomorrow to snu-we will wait for repeat calcium levels this p.m. Vitals Vitals Vital Signs Date Time Temp Pulse Resp B/P (MAP) Pulse Ox O2 Delivery O2 Flow Rate FiO2 02/14/19 10:34 Nasal Cannula 2.0 02/14/19 09:47 94 02/14/19 08:20 99 133/74 02/14/19 07:05 97.9 18 97.9 Physical Exam General: Alert, Oriented X3, Cooperative, mild distress, moderate distress Heart: Regular rate, Normal S1, Normal S2 Lungs: Clear Abdomen: Normal bowel sounds, Soft Extremities: No clubbing, Normal pulses, Other (1+ BLE edema, ankle more than p edal) Skin: No breakdown Labs LABS Laboratory Tests Test 02/13/19 18:50 02/14/19 03:30 Hemoglobin 8.5 g/dL (12.0-15.5) 8.0 g/dL (12.0-15.5) Hematocrit 24.9 % (36.0-47.0) 23.4 % (36.0-47.0) Mean Corpuscular Hemoglobin Concent 34 g/dL (31-37) 34 g/dL (31-37) Prothrombin Time 13.8 SEC (11.7-14.0) Prothromb Time International Ratio 1.1 (0.8-1.1) Review of Systems Review of Systems Weak, nauseated, the rest of ROS 14 point negative Assessment and Plan Assessmemt and Plan Problems Medical Problems: (1) Hip fracture, left Status: Acute (2) Left humeral fracture Status: Acute Comment Review of Relevant I have reviewed the following items baudilio (where applicable) has been applied. Labs Laboratory Tests Test 02/13/19 05:35 02/13/19 18:50 02/14/19 03:30 White Blood Count 8.0 x10^3/uL (4.0-11.0) Red Blood Count 1.37 x10^6/uL (3.50-5.40) Hemoglobin 4.7 g/dL (12.0-15.5) 8.5 g/dL (12.0-15.5) 8.0 g/dL (12.0-15.5) Hematocrit 13.9 % (36.0-47.0) 24.9 % (36.0-47.0) 23.4 % (36.0-47.0) Mean Corpuscular Volume 101 fL (79-100) Mean Corpuscular Hemoglobin 35 pg (25-35) Mean Corpuscular Hemoglobin Concent 34 g/dL (31-37) 34 g/dL (31-37) 34 g/dL (31-37) Red Cell Distribution Width 12.4 % (11.5-14.5) Platelet Count 127 x10^3/uL (140-400) Neutrophils (%) (Auto) 66 % (31-73) Lymphocytes (%) (Auto) 17 % (24-48) Monocytes (%) (Auto) 18 % (0-9) Eosinophils (%) (Auto) 0 % (0-3) Basophils (%) (Auto) 0 % (0-3) Neutrophils # (Auto) 5.2 x10^3uL (1.8-7.7) Lymphocytes # (Auto) 1.3 x10^3/uL (1.0-4.8) Monocytes # (Auto) 1.4 x10^3/uL (0.0-1.1) Eosinophils # (Auto) 0.0 x10^3/uL (0.0-0.7) Basophils # (Auto) 0.0 x10^3/uL (0.0-0.2) Sodium Level 140 mmol/L (136-145) Potassium Level 3.9 mmol/L (3.5-5.1) Chloride Level 111 mmol/L (98-107) Carbon Dioxide Level 18 mmol/L (21-32) Anion Gap 11 (6-14) Blood Urea Nitrogen 27 mg/dL (7-20) Creatinine 1.0 mg/dL (0.6-1.0) Estimated GFR (Cockcroft-Gault) 52.2 BUN/Creatinine Ratio 27 (6-20) Glucose Level 111 mg/dL (70-99) Calcium Level 5.8 mg/dL (8.5-10.1) Total Bilirubin 0.1 mg/dL (0.2-1.0) Aspartate Amino Transf (AST/SGOT) 11 U/L (15-37) Alanine Aminotransferase (ALT/SGPT) 11 U/L (14-59) Alkaline Phosphatase 43 U/L (46-116) Total Protein 3.7 g/dL (6.4-8.2) Albumin 1.7 g/dL (3.4-5.0) Albumin/Globulin Ratio 0.9 (1.0-1.7) Prothrombin Time 13.8 SEC (11.7-14.0) Prothromb Time International Ratio 1.1 (0.8-1.1) Laboratory Tests Test 02/13/19 18:50 02/14/19 03:30 Hemoglobin 8.5 g/dL (12.0-15.5) 8.0 g/dL (12.0-15.5) Hematocrit 24.9 % (36.0-47.0) 23.4 % (36.0-47.0) Mean Corpuscular Hemoglobin Concent 34 g/dL (31-37) 34 g/dL (31-37) Prothrombin Time 13.8 SEC (11.7-14.0) Prothromb Time International Ratio 1.1 (0.8-1.1) Microbiology 02/11/19 Urine Culture - Final, Complete 02/11/19 Urine Culture Result 1 (ERWIN) - Final, Complete Medications Current Medications Sodium Chloride 1,000 ml @ 1,000 mls/hr 1X ONCE IV Last administered on 02/11/19at 21:34; Start 02/11/19 at 20:30; Stop 02/11/19 at 21:29; Status DC Fentanyl Citrate (Fentanyl 2ml Vial) 50 mcg 1X ONCE IV Last administered on 02/11/19at 21:35; Start 02/11/19 at 20:30; Stop 02/11/19 at 20:33; Status DC Fentanyl Citrate (Fentanyl 2ml Vial) 50 mcg 1X ONCE IV Last administered on 02/11/19at 22:57; Start 02/11/19 at 23:00; Stop 02/11/19 at 23:01; Status DC Ceftriaxone Sodium (Rocephin) 1 gm 1X ONCE IVP Last administered on 02/11/19 23:18; Start 02/11/19 at 23:15; Stop 02/11/19 at 23:16; Status DC Fentanyl Citrate (Fentanyl 2ml Vial) 50 mcg PRN Q1HR PRN IV PAIN Last administered on 02/12/19 15:39; Start 02/11/19 at 23:00; Stop 02/12/19 at 22:59; Status DC Sodium Chloride 1,000 ml @ 100 mls/hr Q10H IV Last administered on 02/13/19 03:56; Start 02/11/19 at 23:00; Stop 02/12/19 at 22:59; Status DC Ceftriaxone Sodium (Rocephin) 1 gm Q24H IVP Last administered on 02/13/19at 22:26; Start 02/12/19 at 21:00 Saliva Substitute (Biotene Moisturizing Mouth) 2 spray PRN Q15MIN PRN PO DRY MOUTH; Start 02/12/19 at 08:45 Oxycodone/ Acetaminophen (Percocet 5/325) 1 tab PRN Q4HRS PRN PO PAIN Last administered on 02/13/19at 02:01; Start 02/12/19 at 08:45 Albuterol Sulfate (Ventolin Neb Soln) 2.5 mg PRN Q4HRS PRN NEB SHORTNESS OF BR EATH; Start 02/12/19 at 08:45 Docusate Sodium (Colace) 100 mg PRN BID PRN PO CONSTIPATION (1st Choice); Start 02/12/19 at 08:45 Lactobacillus Rhamnosus (Culturelle) 1 cap BID PO Last administered on 02/14/19 08:19; Start 02/12/19 at 09:00 Metoclopramide HCl (Reglan) 5 mg TIDBFRMEAL PO ; Start 02/12/19 at 09:00; Stop 02/12/19 at 09:08; Status DC Metoprolol Tartrate (Lopressor) 50 mg DAILY08 PO Last administered on 02/14/19 08:20; Start 02/12/19 at 09:00 Amlodipine Besylate (Norvasc) 5 mg DAILY PO Last administered on 02/14/19at 08:20; Start 02/12/19 at 09:00 Polyethylene Glycol (miraLAX PACKET) 17 gm PRN DAILY PRN PO Constipation (3rd Choice); Start 02/12/19 at 09:00; Stop 02/14/19 at 10:25; Status DC Pantoprazole Sodium (Protonix) 40 mg DAILYAC PO Last administered on 02/14/19at 08:19; Start 02/12/19 at 16:30 Gabapentin (Neurontin) 300 mg 1X ONCE PO Last administered on 02/12/19at 09:52; Start 02/12/19 at 08:45; Stop 02/12/19 at 09:09; Status DC Ondansetron HCl (Zofran) 4 mg PRN Q6HRS PRN IV NAUSEA/VOMITING; Start 02/12/19 at 09:00; Stop 02/13/19 at 08:59; Status DC Fentanyl Citrate (Fentanyl 2ml Vial) 25 mcg PRN Q5MIN PRN IV MILD PAIN; Start 02/12/19 at 09:00; Stop 02/13/19 at 08:59; Status DC Fentanyl Citrate (Fentanyl 2ml Vial) 50 mcg PRN Q5MIN PRN IV MODERATE TO SEVERE PAIN; Start 02/12/19 at 09:00; Stop 02/13/19 at 08:59; Status DC Morphine Sulfate (Morphine Sulfate) 1 mg PRN Q10MIN PRN IV SEVERE PAIN; Start 02/12/19 at 09:00; Stop 02/12/19 at 20:00; Status DC Ringer's Solution 1,000 ml @ 30 mls/hr Q24H IV ; Start 02/12/19 at 08:50; Stop 02/12/19 at 20:02; Status DC Hydromorphone HCl (Dilaudid) 0.5 mg PRN Q10MIN PRN IV SEV PAIN, Second choice; Start 02/12/19 at 09:00; Stop 02/12/19 at 20:00; Status DC Lisinopril (Prinivil) 20 mg DAILY PO Last administered on 02/14/19at 08:20; Start 02/12/19 at 09:00 Dexamethasone Sodium Phosphate (Decadron) 4 mg STK-MED ONCE .ROUTE ; Start 02/12/19 at 09:12; Stop 02/12/19 at 09:13; Status DC Propofol 20 ml @ As Directed STK-MED ONCE IV ; Start 02/12/19 at 09:12; Stop 02/12/19 at 09:13; Status DC Lidocaine HCl (Lidocaine Pf 2% Vial) 5 ml STK-MED ONCE .ROUTE ; Start 02/12/19 at 09:12; Stop 02/12/19 at 09:13; Status DC Phenylephrine HCl ([place]-Synephrine Inj) 10 mg STK-MED ONCE .ROUTE ; Start 02/12/19 at 09:12; Stop 02/12/19 at 09:13; Status DC Sevoflurane (Ultane) 90 ml STK-MED ONCE IH ; Start 02/12/19 at 09:13; Stop 02/12/19 at 09:14; Status DC Dexamethasone Sodium Phosphate (Decadron) 4 mg STK-MED ONCE .ROUTE ; Start 02/12/19 at 09:13; Stop 02/12/19 at 09:14; Status DC Cefazolin Sodium 50 ml @ As Directed STK-MED ONCE IV ; Start 02/12/19 at 10:26; Stop 02/12/19 at 10:27; Status DC Oxycodone HCl (Roxicodone) 5 mg PRN Q3HRS PRN PO PAIN Last administered on 02/13/19at 15:04; Start 02/12/19 at 10:45 Morphine Sulfate (Morphine Sulfate) 2 mg PRN Q1HR PRN IV PAIN; Start 02/12/19 at 10:45 Fentanyl Citrate (Fentanyl 2ml Vial) 25 mcg PRN Q1HR PRN IV PAIN; Start 02/12/19 at 10:45 Senna/Docusate Sodium (Senna Plus) 1 tab DAILY PO Last administered on 02/14/19at 08:19; Start 02/12/19 at 13:00 Polyethylene Glycol (miraLAX PACKET) 17 gm PRN DAILY PRN PO CONSTIPATION; Start 02/12/19 at 10:45 Ondansetron HCl (Zofran) 4 mg PRN Q4HRS PRN IV NAUSEA/VOMITING; Start 02/12/19 at 10:45 Warfarin Sodium (Coumadin) 7.5 mg 1X ONCE PO Last administered on 02/12/19at 16:09; Start 02/12/19 at 16:00; Stop 02/12/19 at 16:01; Status DC Warfarin Sodium (Coumadin Per Pharmacy) 1 each PRN DAILY PRN MC SEE COMMENTS Last administered on 02/14/19at 10:27; Start 02/13/19 at 10:45 Magnesium Hydroxide (Milk Of Magnesia) 2,400 mg 1X PRN PRN PO CONSTIPATION; Start 02/13/19 at 06:00; Stop 02/14/19 at 06:00; Status DC Bisacodyl (Dulcolax Supp) 10 mg 1X PRN PRN [place] CONSTIPATION; Start 02/13/19 at 16:00; Stop 02/14/19 at 15:59 Acetaminophen/ Hydrocodone Bitart (Lortab 7.5/325) 1 tab PRN Q4HRS PRN PO PAIN Last administered on 02/14/19at 09:47; Start 02/12/19 at 10:45 Morphine Sulfate (Morphine Sulfate) 4 mg PRN Q2HR PRN IV PAIN; Start 02/12/19 at 10:45 Acetaminophen/ Hydrocodone Bitart (Lortab 7.5/325) 2 tab PRN Q4HRS PRN PO PAIN; Start 02/12/19 at 10:45 Dextrose (Dextrose 50%-Water Syringe) 12.5 gm PRN Q15MIN PRN IV SEE COMMENTS; Start 02/12/19 at 10:45 Ondansetron HCl (Zofran) 4 mg STK-MED ONCE .ROUTE ; Start 02/12/19 at 10:52; Stop 02/12/19 at 10:53; Status DC Dexamethasone Sodium Phosphate (Decadron) 4 mg STK-MED ONCE .ROUTE ; Start 02/12/19 at 10:52; Stop 02/12/19 at 10:53; Status DC Calcium Gluconate 1000 mg/Dextrose 110 ml @ 220 mls/hr 1X ONCE IV Last administered on 02/13/19at 07:13; Start 02/13/19 at 07:00; Stop 02/13/19 at 07:29; Status DC Sodium Chloride 500 ml @ 500 mls/hr 1X ONCE IV Last administered on 02/13/19at 09:00; Start 02/13/19 at 09:00; Stop 02/13/19 at 09:59; Status DC Warfarin Sodium (Coumadin) 3 mg 1X WARF ONCE PO ; Start 02/13/19 at 16:00; Stop 02/13/19 at 16:00; Status DC Warfarin Sodium (Coumadin) 2 mg 1X WARF ONCE PO Last administered on 02/13/19at 18:05; Start 02/13/19 at 16:00; Stop 02/13/19 at 16:01; Status DC Calcium Gluconate (Calcium Gluconate) 1,000 mg 1X ONCE IVP ; Start 02/14/19 at 08:30; Stop 02/14/19 at 08:31; Status UNV Calcium Chloride 1000 mg/Dextrose 60 ml @ 120 mls/hr 1X ONCE IV ; Start 02/14/19 at 09:00; Stop 02/14/19 at 09:29; Status Cancel Calcium Gluconate 1000 mg/Dextrose 110 ml @ 220 mls/hr 1X ONCE IV Last administered on 02/14/19at 08:44; Start 02/14/19 at 09:00; Stop 02/14/19 at 09:29; Status DC Warfarin Sodium (Coumadin) 5 mg 1X WARF ONCE PO ; Start 02/14/19 at 16:00; Stop 02/14/19 at 16:01 Active Scripts Active Bactrim Ds Tablet (Sulfamethoxazole/Trimethoprim) 1 Each Tablet 1 Tab PO BID Reglan (Metoclopramide Hcl) 10 Mg Tablet 1 Tab PO TID MDD 15 MG 14 Days Polyethylene Glycol 3350 17 Gm Powd.pack 17 Gm PO PRN DAILY PRN 14 Days Colace (Docusate Sodium) 100 Mg Capsule 100 Mg PO PRN BID PRN 10 Days Proair Hfa (Albuterol Sulfate) 8.5 Gm Hfa.aer.ad 2.5 Mg NEB PRN Q4HRS PRN 10 Days Cefdinir 300 Mg Capsule 300 Mg PO BID 10 Days Culturelle (Lactobacillus Rhamnosus Gg) 1 Each Cap.sprink 1 Cap PO BID 5 Days [Pantoprazole] 40 MG Tablet.dr 40 Mg PO DAILYAC 30 Days Reported Amlodipine-Benazepril 5-20 Mg (Amlodipine Besylate/Benazepril) 1 Each Capsule 1 Cap PO DAILY Metoprolol Tartrate 50 Mg Tablet 1 Tab PO DAILY08 Myrbetriq (Mirabegron) 50 Mg Tab.er.24h 50 Mg PO DAILY08 Vitals/I & O Vital Sign - Last 24 Hours 02/13/19 02/13/19 02/13/19 5/5/19 12:36 12:55 12:58 13:00 Temp 98.6 98.5 98.4 98.6 98.5 98.4 Pulse 104 100 100 B/P (MAP) 103/57 111/44 111/44 88/43 (58) 02/13/19 02/13/19 02/13/19 02/13/19 13:15 13:30 14:08 14:39 Temp 98.5 98.7 98.5 98.7 Pulse 90 98 Resp 16 B/P (MAP) 72/48 (56) 83/47 (59) 129/36 120/57 (78) Pulse Ox 96 O2 Delivery Nasal Cannula O2 Flow Rate 2.0 02/13/19 02/13/19 02/13/19 02/13/19 15:04 15:08 18:05 19:05 Temp 98.4 97.9 98.4 97.9 Pulse 88 108 Resp 20 B/P (MAP) 126/69 120/51 (74) Pulse Ox 96 96 96 O2 Delivery Nasal Cannula Nasal Cannula Nasal Cannula O2 Flow Rate 2.0 2.0 2.0 02/13/19 02/13/19 02/14/19 02/14/19 20:15 23:49 03:54 07:05 Temp 98.1 98.1 97.9 98.1 98.1 97.9 Pulse 108 104 99 Resp 18 16 18 B/P (MAP) 121/57 (78) 125/47 (73) 133/74 (93) Pulse Ox 97 98 94 O2 Delivery Nasal Cannula Nasal Cannula Nasal Cannula Nasal Cannula O2 Flow Rate 2.0 2.0 2.0 2.0 02/14/19 02/14/19 02/14/19 02/14/19 07:24 08:20 08:20 08:20 Pulse 99 99 99 B/P (MAP) 133/74 133/74 133/74 O2 Delivery Nasal Cannula O2 Flow Rate 2.0 02/14/19 02/14/19 09:47 10:34 Pulse Ox 94 O2 Delivery Nasal Cannula Nasal Cannula O2 Flow Rate 2.0 2.0 Intake and Output 02/13/19 02/13/19 02/14/19 15:00 23:00 07:00 Intake Total 940 ml 400 ml 775 ml Balance 940 ml 400 ml 775 ml TERMULO,JAMES Y MD February 14, 2019 11:05
[2019-02-14 11:30] VITALS: BP 113/48
[2019-02-14] MEDS: ONDANSETRON PF 4 MG/2 ML VIAL. IV PRN (12:54)
[2019-02-14 15:15] VITALS: BP 115/48
[2019-02-14] MEDS ORDERED: WARFARIN 5 MG TABLET. PO ONE (16:00)
[2019-02-14 19:23] VITALS: BP 119/55
[2019-02-14] MEDS: oxyCODONE IR 5 MG TABLET PO PRN (20:26)
[2019-02-14 23:16] VITALS: BP 111/51
[2019-02-15 03:25] VITALS: BP 154/55
[2019-02-15 04:18] LABS: PROTHROMBIN TIME PATIENT 13.9 SEC (11.7-14.0)
[2019-02-15 07:00] VITALS: BP 135/55
[2019-02-15] MEDS ORDERED: HYDR-2765 PO (08:04)
[2019-02-15] MEDS ORDERED: WARF10TA45 MC (08:04)
--- NOTE | 2019-02-15 08:05 | SNU/HH DC ---
DISCHARGE ORDERS DISCHARGE INFORMATION: DISCHARGE DATE: February 15, 2019 FINAL DIAGNOSIS Problems Medical Problems: (1) Hip fracture, left Status: Acute (2) Left humeral fracture Status: Acute CONDITION ON DISCHARGE: Stable CODE STATUS: Code Status: DNR/DNI NURSING HOME: SNF STAY <30 DAYS: Yes HOSPICE: HOSPICE: No HOSPICE EVAL & TREAT: No LTAC: ADMIT TO LTAC: No POST DISCHARGE ORDERS: ACTIVITY ORDERS: Activity as tolerated WEIGHT BEARING STATUS: As tolerated DIET AFTER DISCHARGE: Regular WOUND/INCISION CARE: No wound care needed CHECKS AFTER DISCHARGE: CHECKS AFTER DISCHARGE: Check blood press - daily, Check your Temp as needed, Weigh Yourself Daily FOLLOW-UP: PHYSICIAN FOLLOW-UP: ff up ortho upon dc from snu TREATMENT/EQUIPMENT ORDERS: ADAPTIVE EQUIPMENT NEEDED: None, Front wheeled walker Physical Therapy For: Evalulation/Treatment Occupational Therapy For: Evaluation/Treatment DISCHARGE MEDICATIONS: Home Meds Active Scripts Hydrocodone Bit/Acetaminophen (HYDROCODONE-APAP 7.5-325 ) 1 Tab Tablet, 1 TAB PO PRN Q4HRS PRN for PAIN MDD 1, #30 TAB Prov:JAMES WESLEY MD 02/15/19 Warfarin Sodium (COUMADIN) 10 Mg Tablet, 1 EACH MC PRN DAILY PRN for SEE COMMENTS MDD 1 for 30 Days, TAB Prov:JAMES WESLEY MD 02/15/19 Sulfamethoxazole/Trimethoprim (BACTRIM DS TABLET) 1 Each Tablet, 1 TAB PO BID, #14 TAB Prov:GAMAL ART MD 02/09/19 Metoclopramide Hcl (REGLAN) 10 Mg Tablet, 1 TAB PO TID for GASTROPARESIS MDD 15 MG for 14 Days, #42 TAB 1 Refill Prov:BARB WALKER MD 01/23/19 Polyethylene Glycol 3350 (POLYETHYLENE GLYCOL 3350) 17 Gm Powd.pack, 17 GM PO PRN DAILY PRN for CONSTIPATION (3rd Choice) for 14 Days, #14 PKT Prov:BARB WALKER MD 01/23/19 Docusate Sodium (COLACE) 100 Mg Capsule, 100 MG PO PRN BID PRN for CONSTIPATION (1st Choice) for 10 Days, #10 CAP Prov:BARB WALKER MD 01/23/19 Albuterol Sulfate (Proair Hfa) 8.5 Gm Hfa.aer.ad, 2.5 MG NEB PRN Q4HRS PRN for SHORTNESS OF BREATH for 10 Days, #1 INHALER Prov:BARB WALKER MD 01/23/19 Cefdinir (CEFDINIR) 300 Mg Capsule, 300 MG PO BID for UTI for 10 Days, #20 CAP Prov:BARB WALKER MD 01/23/19 Lactobacillus Rhamnosus Gg (CULTURELLE) 1 Each Cap.sprink, 1 CAP PO BID for UTI for 5 Days, #10 CAP Prov:ELJIAH ALEXANDRE MD 09/24/18 [Pantoprazole] [address] Perez Conflict Check, 40 MG PO DAILYAC for GERD for 30 Days, #30 Prov:ELIJAH ALEXANDRE MD 09/24/18 Reported Medications Amlodipine Besylate/Benazepril (AMLODIPINE-BENAZEPRIL 5-20 MG) 1 Each Capsule, 1 CAP PO DAILY for HTN, #30 CAP 5 Refills 09/20/18 Metoprolol Tartrate (METOPROLOL TARTRATE) 50 Mg Tablet, 1 TAB PO DAILY08 for HTN, #60 TAB 5 Refills 09/20/18 Mirabegron (MYRBETRIQ) 50 Mg Tab.er.24h, 50 MG PO DAILY08 for overactive bladder, TAB.SR 09/20/18 JAMES WESLEY MD February 15, 2019 08:05
[2019-02-15] MEDS: LISINOPRIL 20 MG TABLET PO SCH (09:12)
[2019-02-15] MEDS: METOPROLOL TART IMMED RELEASE 50 MG TABLET. PO SCH (09:12)
[2019-02-15] MEDS: PANTOPRAZOLE 40 MG TABLET.DR. PO SCH (09:12)
[2019-02-15] MEDS: LACTOBACILLUS RHAMNOSUS GG 1 CAPSULE. PO SCH (09:12)
[2019-02-15] MEDS: SENNOSIDES/DOCUSATE 8.6/50MG TABLET. PO SCH (09:12)
[2019-02-15] MEDS: ONDANSETRON PF 4 MG/2 ML VIAL. IV PRN (09:13)
[2019-02-15] MEDS: amLODIPine BESYLATE 5 MG TABLET PO SCH (09:13)
--- NOTE | 2019-02-15 09:21 | NUR ---
SW following pt. Spoke with pt and sonDaniel about SNU options. Both agreeable with [facility]. SW phoned and faxed referral/order to [facility]. Pt acceptance and admission pending. Will continue to follow.
--- NOTE | 2019-02-15 11:05 | PDOC ---
PROGRESS NOTES Chief Complaint Chief Complaint acute Precipitous drop in hemoglobin postop status post transfusion Left humeral fracture Mechanical fall Syncope Hypocalcemia CHF, chronic diastolic chronic htn gen weakness History of Present Illness History of Present Illness she has no complaints [facility] might not have a bed today Plan Medically ready to DC All paperwork done and on chart dw with RN and case management/social work Vitals Vitals Vital Signs Date Time Temp Pulse Resp B/P (MAP) Pulse Ox O2 Delivery O2 Flow Rate FiO2 02/15/19 09:13 83 135/55 02/15/19 08:00 Nasal Cannula 2.0 02/15/19 07:00 97.5 18 97 97.5 Physical Exam General: Alert, Oriented X3, Cooperative, mild distress, moderate distress Heart: Regular rate, Normal S1, Normal S2 Lungs: Clear Abdomen: Normal bowel sounds, Soft Extremities: No clubbing, Normal pulses, Other (1+ BLE edema, ankle more than pedal) Skin: No breakdown Labs LABS Laboratory Tests Test 02/14/19 12:05 02/15/19 02:50 Calcium Level 7.9 mg/dL (8.5-10.1) Prothrombin Time 13.9 SEC (11.7-14.0) Prothromb Time International Ratio 1.1 (0.8-1.1) Review of Systems Review of Systems A 14 point ROS was completed with the following noted as positive: Other systems reviewed and negative. \CONSTITUTIONAL: No fever or chills EYES: No recent changes SKIN: No rash or itching CARDIOVASCULAR: No chest pain, syncope, palpitations, or edema RESPIRATORY: No SOB or cough GASTROINTESTINAL: No nausea, vomiting or abdominal pain NEUROLOGICAL: No headaches or weakness ENDOCRINE: No cold or heat intolerance GENITOURINARY: No urgency or frequency of urination MUSCULOSKELETAL: No back pain or joint pain LYMPHATICS: No enlarged lymph nodes PSYCHIATRIC: No anxiety or depression Assessment and Plan Assessmemt and Plan Problems Medical Problems: (1) Hip fracture, left Status: Acute (2) Left humeral fracture Status: Acute Comment Review of Relevant I have reviewed the following items baudilio (where applicable) has been applied. Labs Laboratory Tests Test 02/13/19 18:50 02/14/19 03:30 02/14/19 12:05 02/15/19 02:50 Hemoglobin 8.5 g/dL (12.0-15.5) 8.0 g/dL (12.0-15.5) Hematocrit 24.9 % (36.0-47.0) 23.4 % (36.0-47.0) Mean Corpuscular Hemoglobin Concent 34 g/dL (31-37) 34 g/dL (31-37) Prothrombin Time 13.8 SEC (11.7-14.0) 13.9 SEC (11.7-14.0) Prothromb Time International Ratio 1.1 (0.8-1.1) 1.1 (0.8-1.1) Calcium Level 7.9 mg/dL (8.5-10.1) Laboratory Tests Test 02/14/19 12:05 02/15/19 02:50 Calcium Level 7.9 mg/dL (8.5-10.1) Prothrombin Time 13.9 SEC (11.7-14.0) Prothromb Time International Ratio 1.1 (0.8-1.1) Microbiology 02/11/19 Urine Culture - Final, Complete 02/11/19 Urine Culture Result 1 (ERWIN) - Final, Complete Medications Current Medications Sodium Chloride 1,000 ml @ 1,000 mls/hr 1X ONCE IV Last administered on 02/11/19 21:34; Start 02/11/19 at 20:30; Stop 02/11/19 at 21:29; Status DC Fentanyl Citrate (Fentanyl 2ml Vial) 50 mcg 1X ONCE IV Last administered on 02/11/19 21:35; Start 02/11/19 at 20:30; Stop 02/11/19 at 20:33; Status DC Fentanyl Citrate (Fentanyl 2ml Vial) 50 mcg 1X ONCE IV Last administered on 02/11/19at 22:57; Start 02/11/19 at 23:00; Stop 02/11/19 at 23:01; Status DC Ceftriaxone Sodium (Rocephin) 1 gm 1X ONCE IVP Last administered on 02/11/19 23:18; Start 02/11/19 at 23:15; Stop 02/11/19 at 23:16; Status DC Fentanyl Citrate (Fentanyl 2ml Vial) 50 mcg PRN Q1HR PRN IV PAIN Last administered on 02/12/19at 15:39; Start 02/11/19 at 23:00; Stop 02/12/19 at 22:59; Status DC Sodium Chloride 1,000 ml @ 100 mls/hr Q10H IV Last administered on 02/13/19 03:56; Start 02/11/19 at 23:00; Stop 02/12/19 at 22:59; Status DC Ceftriaxone Sodium (Rocephin) 1 gm Q24H IVP Last administered on 02/13/19 22:26; Start 02/12/19 at 21:00; Stop 02/14/19 at 14:04; Status DC Saliva Substitute (Biotene Moisturizing Mouth) 2 spray PRN Q15MIN PRN PO DRY MOUTH; Start 02/12/19 at 08:45 Oxycodone/ Acetaminophen (Percocet 5/325) 1 tab PRN Q4HRS PRN PO PAIN Last administered on 02/13/19 02:01; Start 02/12/19 at 08:45 Albuterol Sulfate (Ventolin Neb Soln) 2.5 mg PRN Q4HRS PRN NEB SHORTNESS OF BREATH; Start 02/12/19 at 08:45 Docusate Sodium (Colace) 100 mg PRN BID PRN PO CONSTIPATION (1st Choice) Last administered on 02/14/19 20:25; Start 02/12/19 at 08:45 Lactobacillus Rhamnosus (Culturelle) 1 cap BID PO Last administered on 02/15/19 09:12; Start 02/12/19 at 09:00 Metoclopramide HCl (Reglan) 5 mg TIDBFRMEAL PO ; Start 02/12/19 at 09:00; Stop 02/12/19 at 09:08; Status DC Metoprolol Tartrate (Lopressor) 50 mg DAILY08 PO Last administered on 02/15/19 09:12; Start 02/12/19 at 09:00 Amlodipine Besylate (Norvasc) 5 mg DAILY PO Last administered on 02/15/19 09:13; Start 02/12/19 at 09:00 Polyethylene Glycol (miraLAX PACKET) 17 gm PRN DAILY PRN PO Constipation (3rd Choice); Start 02/12/19 at 09:00; Stop 02/14/19 at 10:25; Status DC Pantoprazole Sodium (Protonix) 40 mg DAILYAC PO Last administered on 02/15/19 09:12; Start 02/12/19 at 16:30 Gabapentin (Neurontin) 300 mg 1X ONCE PO Last administered on 02/12/19at 09:52; Start 02/12/19 at 08:45; Stop 02/12/19 at 09:09; Status DC Ondansetron HCl (Zofran) 4 mg PRN Q6HRS PRN IV NAUSEA/VOMITING; Start 02/12/19 at 09:00; Stop 02/13/19 at 08:59; Status DC Fentanyl Citrate (Fentanyl 2ml Vial) 25 mcg PRN Q5MIN PRN IV MILD PAIN; Start 02/12/19 at 09:00; Stop 02/13/19 at 08:59; Status DC Fentanyl Citrate (Fentanyl 2ml Vial) 50 mcg PRN Q5MIN PRN IV MODERATE TO SEVERE PAIN; Start 02/12/19 at 09:00; Stop 02/13/19 at 08:59; Status DC Morphine Sulfate (Morphine Sulfate) 1 mg PRN Q10MIN PRN IV SEVERE PAIN; Start 02/12/19 at 09:00; Stop 02/12/19 at 20:00; Status DC Ringer's Solution 1,000 ml @ 30 mls/hr Q24H IV ; Start 02/12/19 at 08:50; Stop 02/12/19 at 20:02; Status DC Hydromorphone HCl (Dilaudid) 0.5 mg PRN Q10MIN PRN IV SEV PAIN, Second choice; Start 02/12/19 at 09:00; Stop 02/12/19 at 20:00; Status DC Lisinopril (Prinivil) 20 mg DAILY PO Last administered on 02/15/19at 09:12; Start 02/12/19 at 09:00 Dexamethasone Sodium Phosphate (Decadron) 4 mg STK-MED ONCE .ROUTE ; Start 02/12/19 at 09:12; Stop 02/12/19 at 09:13; Status DC Propofol 20 ml @ As Directed STK-MED ONCE IV ; Start 02/12/19 at 09:12; Stop 02/12/19 at 09:13; Status DC Lidocaine HCl (Lidocaine Pf 2% Vial) 5 ml STK-MED ONCE .ROUTE ; Start 02/12/19 at 09:12; Stop 02/12/19 at 09:13; Status DC Phenylephrine HCl ([place]-Synephrine Inj) 10 mg STK-MED ONCE .ROUTE ; Start 02/12/19 at 09:12; Stop 02/12/19 at 09:13; Status DC Sevoflurane (Ultane) 90 ml STK-MED ONCE IH ; Start 02/12/19 at 09:13; Stop 02/12/19 at 09:14; Status DC Dexamethasone Sodium Phosphate (Decadron) 4 mg STK-MED ONCE .ROUTE ; Start 02/12/19 at 09:13; Stop 02/12/19 at 09:14; Status DC Cefazolin Sodium 50 ml @ As Directed STK-MED ONCE IV ; Start 02/12/19 at 10:26; Stop 02/12/19 at 10:27; Status DC Oxycodone HCl (Roxicodone) 5 mg PRN Q3HRS PRN PO PAIN Last administered on 02/14/19 20:26; Start 02/12/19 at 10:45 Morphine Sulfate (Morphine Sulfate) 2 mg PRN Q1HR PRN IV PAIN; Start 02/12/19 at 10:45 Fentanyl Citrate (Fentanyl 2ml Vial) 25 mcg PRN Q1HR PRN IV PAIN; Start 02/12/19 at 10:45 Senna/Docusate Sodium (Senna Plus) 1 tab DAILY PO Last administered on 02/15/19 09:12; Start 02/12/19 at 13:00 Polyethylene Glycol (miraLAX PACKET) 17 gm PRN DAILY PRN PO CONSTIPATION Last administered on 02/14/19 20:25; Start 02/12/19 at 10:45 Ondansetron HCl (Zofran) 4 mg PRN Q4HRS PRN IV NAUSEA/VOMITING Last administered on 02/15/19 09:13; Start 02/12/19 at 10:45 Warfarin Sodium (Coumadin) 7.5 mg 1X ONCE PO Last administered on 02/12/19 16:09; Start 02/12/19 at 16:00; Stop 02/12/19 at 16:01; Status DC Warfarin Sodium (Coumadin Per Pharmacy) 1 each PRN DAILY PRN MC SEE COMMENTS [facility] st administered on 02/14/19at 10:27; Start 02/13/19 at 10:45 Magnesium Hydroxide (Milk Of Magnesia) 2,400 mg 1X PRN PRN PO CONSTIPATION; Start 02/13/19 at 06:00; Stop 02/14/19 at 06:00; Status DC Bisacodyl (Dulcolax Supp) 10 mg 1X PRN PRN AR CONSTIPATION; Start 02/13/19 at 16:00; Stop 02/14/19 at 15:59; Status DC Acetaminophen/ Hydrocodone Bitart (Lortab 7.5/325) 1 tab PRN Q4HRS PRN PO PAIN Last administered on 02/14/19at 09:47; Start 02/12/19 at 10:45 Morphine Sulfate (Morphine Sulfate) 4 mg PRN Q2HR PRN IV PAIN; Start 02/12/19 at 10:45 Acetaminophen/ Hydrocodone Bitart (Lortab 7.5/325) 2 tab PRN Q4HRS PRN PO PAIN Last administered on 02/14/19at 23:27; Start 02/12/19 at 10:45 Dextrose (Dextrose 50%-Water Syringe) 12.5 gm PRN Q15MIN PRN IV SEE COMMENTS; Start 02/12/19 at 10:45 Ondansetron HCl (Zofran) 4 mg STK-MED ONCE .ROUTE ; Start 02/12/19 at 10:52; Stop 02/12/19 at 10:53; Status DC Dexamethasone Sodium Phosphate (Decadron) 4 mg STK-MED ONCE .ROUTE ; Start 02/12/19 at 10:52; Stop 02/12/19 at 10:53; Status DC Calcium Gluconate 1000 mg/Dextrose 110 ml @ 220 mls/hr 1X ONCE IV Last administered on 02/13/19at 07:13; Start 02/13/19 at 07:00; Stop 02/13/19 at 07:29; Status DC Sodium Chloride 500 ml @ 500 mls/hr 1X ONCE IV Last administered on 02/13/19at 09:00; Start 02/13/19 at 09:00; Stop 02/13/19 at 09:59; Status DC Warfarin Sodium (Coumadin) 3 mg 1X WARF ONCE PO ; Start 02/13/19 at 16:00; Stop 02/13/19 at 16:00; Status DC Warfarin Sodium (Coumadin) 2 mg 1X WARF ONCE PO Last administered on 02/13/19at 18:05; Start 02/13/19 at 16:00; Stop 02/13/19 at 16:01; Status DC Calcium Gluconate (Calcium Gluconate) 1,000 mg 1X ONCE IVP ; Start 02/14/19 at 08:30; Stop 02/14/19 at 08:31; Status UNV Calcium Chloride 1000 mg/Dextrose 60 ml @ 120 mls/hr 1X ONCE IV ; Start 02/14/19 at 09:00; Stop 02/14/19 at 09:29; Status Cancel Calcium Gluconate 1000 mg/Dextrose 110 ml @ 220 mls/hr 1X ONCE IV Last administered on 02/14/19at 08:44; Start 02/14/19 at 09:00; Stop 02/14/19 at 09:29; Status DC Warfarin Sodium (Coumadin) 5 mg 1X WARF ONCE PO Last administered on 02/14/19at 15:55; Start 02/14/19 at 16:00; Stop 02/14/19 at 16:01; Status DC Active Scripts Active Hydrocodone-Apap 7.5-325 (Hydrocodone Bit/Acetaminophen) 1 Tab Tablet 1 Tab PO PRN Q4HRS PRN MDD 1 Coumadin (Warfarin Sodium) 10 Mg Tablet 1 Each MC PRN DAILY PRN MDD 1 30 Days Bactrim Ds Tablet (Sulfamethoxazole/Trimethoprim) 1 Each Tablet 1 Tab PO BID Reglan (Metoclopramide Hcl) 10 Mg Tablet 1 Tab PO TID MDD 15 MG 14 Days Polyethylene Glycol 3350 17 Gm Powd.pack 17 Gm PO PRN DAILY PRN 14 Days Colace (Docusate Sodium) 100 Mg Capsule 100 Mg PO PRN BID PRN 10 Days Proair Hfa (Albuterol Sulfate) 8.5 Gm Hfa.aer.ad 2.5 Mg NEB PRN Q4HRS PRN 10 Days Cefdinir 300 Mg Capsule 300 Mg PO BID 10 Days Culturelle (Lactobacillus Rhamnosus Gg) 1 Each Cap.sprink 1 Cap PO BID 5 Days [Pantoprazole] 40 MG Tablet.dr 40 Mg PO DAILYAC 30 Days Reported Amlodipine-Benazepril 5-20 Mg (Amlodipine Besylate/Benazepril) 1 Each Capsule 1 Cap PO DAILY Metoprolol Tartrate 50 Mg Tablet 1 Tab PO DAILY08 Myrbetriq (Mirabegron) 50 Mg Tab.er.24h 50 Mg PO DAILY08 Vitals/I & O Vital Sign - Last 24 Hours 02/14/19 02/14/19 02/14/19 5/6/19 11:30 15:15 19:23 20:00 Temp 97.5 98.6 97.7 97.5 98.6 97.7 Pulse 90 89 85 Resp 18 18 16 B/P (MAP) 113/48 (69) 115/48 (70) 119/55 (76) Pulse Ox 96 99 98 O2 Delivery Nasal Cannula Nasal Cannula Nasal Cannula Nasal Cannula O2 Flow Rate 2.0 2.0 2.0 2.0 02/14/19 02/15/19 02/15/19 02/15/19 23:16 03:25 07:00 08:00 Temp 98.3 97.6 97.5 98.3 97.6 97.5 Pulse 87 84 83 Resp 20 20 18 B/P (MAP) 111/51 (71) 154/55 (88) 135/55 (81) Pulse Ox 96 94 97 O2 Delivery Nasal Cannula Nasal Cannula Nasal Cannula Nasal Cannula O2 Flow Rate 2.0 2.0 2.0 2.0 02/15/19 02/15/19 02/15/19 09:12 09:12 09:13 Pulse 83 83 83 B/P (MAP) 135/55 135/55 135/55 Intake and Output 02/14/19 02/14/19 02/15/19 15:00 23:00 07:00 Intake Total 200 ml 200 ml 100 ml Output Total 150 ml Balance 50 ml 200 ml 100 ml JAMES WESLEY MD February 15, 2019 11:05
[2019-02-15 11:22] VITALS: BP 124/53
--- NOTE | 2019-02-15 12:15 | NUR ---
Pharmacy Warfarin Dosing Note S:Pharmacy consulted to assist with anticoagulation therapy started 02/12/19 with target INR: 1.6 - 2.5 O:GILSON CUEVA V is a 88 year old F with a Hip Fracture Allergies:Yeast Height: 5 feet, 0 inches Weight: 69.1 kg LABS: Last INR: 1.1 Last HGB: 8.0 Last HCT: 23.4 Last PLT: 127 Ongoing Drug Interactions: A:INR below desired Range. Target Range for this patient is: 1.6 - 2.5 P: Warfarin dose: 5 mg will be given today prior to discharge. Give 5 mg daily. Draw INR on Thursday, February 18, and request attending physician to dose warfarin for a goal INR 1.6 - 2.5 through end of therapy 03/25/19 (6 weeks of therapy). Indication for warfarin is prevention of VTE after joint surgery. VARSHA ASHFORD [facility], 02/15/19 0201
[2019-02-15] MEDS ORDERED: METO-269 PO (12:19)
[2019-02-15] MEDS ORDERED: WARFARIN 5 MG TABLET. PO ONE (13:00)
--- NOTE | 2019-02-15 13:31 | NUR ---
JAMEL following pt. [facility] has been accepted at [facility]. SW phoned and faxed orders to [facility]. Pt will transport via [facility] at 1700. RN to check with Physician regarding pt's ortho f/u appointment. Pt aware of plans and agreeable.Pt's choice and rights forms verbally consented by Pt's son, Daniel via phone and copies on chart. Packet on chart and MARIA GUADALUPE RN.
[2019-02-15 15:00] VITALS: BP 127/58
[2019-02-15] MEDS: oxyCODONE/APAP 5/325 1 TAB TABLET PO PRN (15:30)
--- NOTE | 2019-02-15 16:40 | NUR ---
Report called to Venus at [facility]. Reviewed all discharge orders. Outside of the hospital DNR signed and put in packet. Family is aware of transfer.
--- NOTE | 2019-02-15 17:36 | NUR ---
Pt transported to [facility] per EMS.
[2019-02-16] MEDS ORDERED: METOPROLOL SUCC 24HR ER 50 MG TAB.ER.24H. PO SCH (09:00)
--- NOTE | 2019-03-05 07:37 | PDOC3 ---
Discharge Summary Visit Information Date of Admission: February 11, 2019 Date of Discharge: February 15, 2019 Admitting Diagnosis Comment: acute Precipitous drop in hemoglobin postop status post transfusion Left humeral fracture Mechanical fall Syncope Hypocalcemia CHF, chronic diastolic chronic htn gen weakness Final Diagnosis Problems Medical Problems: (1) Hip fracture, left Status: Acute (2) Left humeral fracture Status: Acute Brief Hospital Course Allergies Allergies Coded Allergies Type Severity Reaction Last Updated Verified Yeast Allergy Intermediate 09/21/18 Yes Brief Hospital Course Ms. Medina is a 88 old F admitted for left humeral fracture, PST medical hx chronic diastolic heart failure, HAd drop in hgb needing BT post op, NEeds SNU, [facility] had a bed on day of my last progress note so was dcd there COnsults: ortho Proc: OR Discharge Information Condition at Discharge: Improved, Stable Disposition/Orders: Other (pplace) Scheduled Amlodipine Besylate/Benazepril (Amlodipine-Benazepril 5-20 Mg) 1 Each Capsule, 1 CAP PO DAILY for HTN, #30 Ref 5 (Reported) Entered as Reported by: UDAY MILLER on 09/20/18 1457 Last Action: Converted on 02/12/19844 by RICKI ALEJANDRA Cefdinir (Cefdinir) 300 Mg Capsule, 300 MG PO BID for UTI for 10 Days, #20 Prescribed by: ABRB WALKER MD on 01/23/19 1436 Last Action: HELD on 02/12/19844 by RICKI ALEJANDRA Lactobacillus Rhamnosus Gg (Culturelle) 1 Each Cap.sprink, 1 CAP PO BID for UTI for 5 Days, #10 Prescribed by: ELIJAH ALEXANDRE MD on 09/24/18 1342 Last Action: Continued on 02/12/19844 by RICKI ALEJANDRA Metoclopramide Hcl (Reglan) 10 Mg Tablet, 1 TAB PO TID for GASTROPARESIS MDD 15 MG for 14 Days, #42 Ref 1 Prescribed by: BARB WALKER MD on 01/23/19 1436 Last Action: Continued on 02/12/19844 by RICKI ALEJANDRA Metoprolol Succinate (Toprol Xl) 50 Mg Tab.er.24h, 50 MG PO DAILY for FOR HYPERTENSION, #30 Ref 0 (Reported) Entered as Reported by: VARSHA ASHFORD [facility] on 02/15/19 1219 Last Action: New Order on 02/15/19 1219 by VARSHA ASHFORD [facility] Mirabegron (Myrbetriq) 50 Mg Tab.er.24h, 50 MG PO DAILY08 for overactive bladder, (Reported) Entered as Reported by: UDAY MILLER on 09/20/18 1455 Last Action: HELD on 02/12/19844 by RICKI ALEJANDRA Sulfamethoxazole/Trimethoprim (Bactrim Ds Tablet) 1 Each Tablet, 1 TAB PO BID, #14 Prescribed by: GAMAL ART MD on 02/09/19 1200 Last Action: HELD on 02/12/19844 by RICKI ALEJANDRA [Pantoprazole] 40 MG TABLET.DR, 40 MG PO DAILYAC for GERD for 30 Days, #30 Prescribed by: ELIJAH ALEXANDRE MD on 09/24/18 1342 Last Action: Converted on 02/12/19844 by RICKI ALEJANDRA Scheduled PRN Albuterol Sulfate (Proair Hfa) 8.5 Gm Hfa.aer.ad, 2.5 MG NEB PRN Q4HRS PRN for SHORTNESS OF BREATH for 10 Days, #1 Prescribed by: BARB WALKER MD on 01/23/19 1436 Last Action: Continued on 02/12/19844 by RICKI ALEJANDRA Docusate Sodium (Colace) 100 Mg Capsule, 100 MG PO PRN BID PRN for CONSTIPATION (1st Choice) for 10 Days, #10 Prescribed by: BARB WALKER MD on 01/23/19 1436 Last Action: Continued on 02/12/19844 by RICKI ALEJANDRA Hydrocodone Bit/Acetaminophen (Hydrocodone-Apap 7.5-325 ) 1 Tab Tablet, 1 TAB PO PRN Q4HRS PRN for PAIN MDD 1, #30 Prescribed by: JAMES WESLEY on 02/15/19 0804 Polyethylene Glycol 3350 (Polyethylene Glycol 3350) 17 Gm Powd.pack, 17 GM PO PRN DAILY PRN for CONSTIPATION (3rd Choice) for 14 Days, #14 Prescribed by: BARB WALKER MD on 01/23/19 1436 Last Action: Converted on 02/12/19844 by RICKI ALEJANDRA Warfarin Sodium (Coumadin) 10 Mg Tablet, 1 EACH MC PRN DAILY PRN for SEE COMMENTS MDD 1 for 30 Days Prescribed by: JAMES WESLEY on 02/15/19 0804 JAMES WESLEY MD March 05, 2019 07:37
== END 2019-02-15 18:45 | DRG 853 ==
LOC: ER 19:56 → 6 SOUTH 22:30
PROVIDERS: ADMIT Family Medicine; ATTEND Family Medicine
PROC: 0QS706Z Reposition Left Upper Femur with Intramedullary Internal Fixation Device, Open Approach (ICD-10-PCS; principal; 2019-02-12 10:30)
PROC: 30233N1 Transfusion of Nonautologous Red Blood Cells into Peripheral Vein, Percutaneous Approach (ICD-10-PCS; 2019-02-13)
DX: A41.9 Sepsis, unspecified organism (principal); S72.142A Displaced intertrochanteric fracture of left femur, initial encounter for closed fracture; S42.292A Other displaced fracture of upper end of left humerus, initial encounter for closed fracture; I50.32 Chronic diastolic (congestive) heart failure; N39.0 Urinary tract infection, site not specified; R71.0 Precipitous drop in hematocrit; E44.0 Moderate protein-calorie malnutrition; I11.0 Hypertensive heart disease with heart failure; K21.9 Gastro-esophageal reflux disease without esophagitis; E78.00 Pure hypercholesterolemia, unspecified; M19.90 Unspecified osteoarthritis, unspecified site; I95.9 Hypotension, unspecified; E83.51 Hypocalcemia; W18.39XA Other fall on same level, initial encounter; Y93.89 Activity, other specified; Y99.8 Other external cause status; Y92.009 Unspecified place in unspecified non-institutional (private) residence as the place of occurrence of the external cause; Z90.710 Acquired absence of both cervix and uterus; Z87.440 Personal history of urinary (tract) infections
CPT/HCPCS: 36415; 70450; 71045; 73030; 73060; 73130; 73502; 76000; 80053; 81001; 82310; 82550; 83735; 84484; 85014; 85018; 85025; 85610; 86850; 86900; 86901; 86920; 87086; 93005; 96361; 96374; 96375; 96376; A7015; C1713; C1887; J0610; J0690; J0696; J1100; J2001; J2405; J2704; J3010; J7030; J7040; P9016; 97110; 97530; 97535; 99285-25